=== PATIENT | female | born 1960 | race Caucasian/White ===

== ENCOUNTER 2020-08-03 14:54 | Outpatient (REF) | payer OTHER, SELFPAY ==
[2020-08-03 17:12] LABS: MANUAL DIFF FLAG NO
[2020-08-03 17:22] LABS: Basophils Percent Auto 0.6 % (0-2); Eosinophils Absolute Auto 0.2 X10*3/uL (0.0-0.4); Eosinophils Percent Auto 3.3 % (0-4); Hematocrit 40.5 % (37-47); Hemoglobin 12.9 g/dl (12.0-16.0); Imm Gran Abs Auto 0.02 X10*3/uL (0.00-0.03); Imm Gran Pct Auto 0.4 % (0.0-0.4); Lymphocytes Absolute Auto 1.5 X10*3/uL (1.2-4.9); Lymphocytes Percent Auto 27.8 % (20-40); Mean Corpuscular HGB Conc 31.9 g/dl (31.0-35.0); Mean Corpuscular Hemoglobin 25.5 pg (27.0-33.0); Mean Platelet Volume 10.3 fL (9.4-12.3); Monocytes Absolute Auto 0.5 X10*3/uL (0.1-1.2); Monocytes Percent Auto 8.7 % (2-11); Neutrophils Absolute Auto 3.2 X10*3/uL (2.0-8.3); Neutrophils Percent Auto 59.2 % (45-73); Platelet Count 204 X10*3/uL (160-400); Red Blood Count 5.06 X10*6/uL (4.20-5.50); Red Cell Distribution Width 14.7 % (11.0-16.0); White Blood Count 5.4 X10*3/uL (4.8-10.8)
[2020-08-03 17:36] LABS: Amphetamine Screen Urine Not Detected (Not Detect); Barbiturates, Urine Not Detected (Not Detect); Benzodiazepines Screen Urine Not Detected (Not Detect); Cannabinoid Screen Urine Not Detected (Not Detect); Cocaine Screen Urine Not Detected (Not Detect); Opiate Screen Urine POSITIVE (Not Detect); Phencyclidine Screen Urine Not Detected (Not Detect)
[2020-08-03 17:38] LABS: Anion Gap 13 (12-20); Blood Urea Nitrogen 19 mg/dL (9-16); Carbon Dioxide 30 mmol/L (22-29); Chloride 105 mmol/L (96-108); Estimated Glomerular Filt Rate > 60; Glucose Random 102 mg/dL (60-115); Potassium 4.5 mmol/l (3.3-5.1); Sodium 143 mmol/L (135-145)
[2020-08-05 04:32] LABS: SARS COV2 IgG Negative (Negative)
[2020-08-06 07:33] LABS: Oxycodone, Ur 1821
[2020-08-06 07:34] LABS: Codeine, Ur NEGATIVE; Hydrocodone, Ur NEGATIVE; Morphine, Ur NEGATIVE
[2020-08-06 07:35] LABS: Hydromorphone, Ur NEGATIVE; Norhydrocodone, Ur NEGATIVE; Oxymorphone, Ur 2114
[2020-08-06 07:41] LABS: Noroxycodone, Ur 2472
== END 2020-08-03 14:55 | disposition home or self-care (01) ==
LOC: HO.HMGCLDS 14:54
PROVIDERS: PCP Internal Medicine; Visit Provider Internal Medicine
DX: E66.9 Obesity, unspecified (principal); R52 Pain, unspecified; F11.20 Opioid dependence, uncomplicated; M48.00 Spinal stenosis, site unspecified; L30.9 Dermatitis, unspecified; M10.9 Gout, unspecified
CPT/HCPCS: 36415; 80048; 80307; 80365; 85025; 86769; G0480

== ENCOUNTER 2020-09-25 08:47 | Outpatient (REF) | payer OTHER, SELFPAY | END 2020-09-25 08:48 | disposition home or self-care (01) | LOC: HO.LAB 08:47 | PROVIDERS: PCP Internal Medicine; Visit Provider Internal Medicine | DX: Z20.828 Contact with and (suspected) exposure to other viral communicable diseases (principal) | CPT/HCPCS: U0003 ==

== ENCOUNTER 2021-01-19 06:17 | Outpatient (REF) | payer OTHER, SELFPAY ==
[2021-01-19 11:21] LABS: MANUAL DIFF FLAG NO
[2021-01-19 11:33] LABS: Basophils Percent Auto 0.7 % (0-2); Eosinophils Absolute Auto 0.2 X10*3/uL (0.0-0.4); Eosinophils Percent Auto 3.2 % (0-4); Hematocrit 41.4 % (37-47); Hemoglobin 12.8 g/dl (12.0-16.0); Imm Gran Abs Auto 0.05 X10*3/uL (0.00-0.03); Imm Gran Pct Auto 0.9 % (0.0-0.4); Lymphocytes Absolute Auto 1.2 X10*3/uL (1.2-4.9); Lymphocytes Percent Auto 21.2 % (20-40); Mean Corpuscular HGB Conc 30.9 g/dl (31.0-35.0); Mean Corpuscular Hemoglobin 24.8 pg (27.0-33.0); Mean Corpuscular Volume 80.1 fL (80-98); Mean Platelet Volume 10.5 fL (9.4-12.3); Monocytes Absolute Auto 0.4 X10*3/uL (0.1-1.2); Monocytes Percent Auto 7.5 % (2-11); Neutrophils Absolute Auto 3.9 X10*3/uL (2.0-8.3); Neutrophils Percent Auto 66.5 % (45-73); Platelet Count 200 X10*3/uL (160-400); Red Blood Count 5.17 X10*6/uL (4.20-5.50); Red Cell Distribution Width 15.1 % (11.0-16.0); White Blood Count 5.9 X10*3/uL (4.8-10.8)
[2021-01-19 18:02] LABS: Alanine Aminotransferase 15 U/L (0-31); Albumin Level 4.3 g/dL (3.5-5.0); Alkaline Phosphatase 100 U/L (39-117); Anion Gap 12 (12-20); Aspartate Amino Transferase 16 U/L (5-31); Bilirubin Total 0.3 mg/dL (0.0-1.0); Blood Urea Nitrogen 18 mg/dL (9-16); Calcium 9.3 mg/dL (8.4-10.2); Carbon Dioxide 32 mmol/L (22-29); Chloride 103 mmol/L (96-108); Estimated Glomerular Filt Rate > 60; Glucose Random 98 mg/dL (60-115); Potassium 4.4 mmol/L (3.3-5.1); Sodium 143 mmol/L (135-145); Total Protein 6.9 g/dL (6.5-8.0)
== END 2021-01-19 06:18 | disposition home or self-care (01) ==
LOC: HO.HMGCLDS 06:17
PROVIDERS: Visit Provider Nurse Practitioner Family
DX: R19.00 Intra-abdominal and pelvic swelling, mass and lump, unspecified site (principal)
CPT/HCPCS: 36415; 80053; 85025

== ENCOUNTER 2021-02-08 13:39 | Outpatient (REF) | payer OTHER, SELFPAY ==
--- NOTE | ~2021-02-08 | CT_ITS ---
EXAMINATION: CT ABDOMEN AND PELVIS WITH CONTRAST CLINICAL INFORMATION: 61-year-old female with intra-abdominal and pelvic swelling. COMPARISON: None TECHNIQUE: Multidetector volumetric images were obtained from the superior aspect of the liver through the pubic symphysis following administration 85 mL of Omnipaque 350 intravenous contrast. Sagittal and coronal reformatted images were obtained on the technologist's workstation. Oral contrast: No This CT examination was performed using dose optimization techniques as appropriate, variously including the following: *Automated exposure control *Adjustment of mA and/or kV according to patient size (this includes techniques or standardized protocols for targeted exams where dose is matched to indication/reason for exam; i.e. extremities or head) *Use of iterative reconstruction technique DLP: 755 mGy-cm FINDINGS: Visualized lung bases demonstrate mild dependent atelectasis. The liver is normal in size but demonstrates diffusely decreased attenuation. The gallbladder is normal in appearance. There is fatty atrophy of the pancreas. The spleen is normal in appearance. Small anterior splenule is noted. The adrenal glands are unremarkable. Symmetrically enhancing kidneys. There is no hydronephrosis bilaterally. The stomach is decompressed. Normal caliber loops of small and large bowel. Nonaneurysmal abdominal aorta. No retroperitoneal lymphadenopathy. The bladder is relatively decompressed and therefore not accurately evaluated. Uterus is unremarkable. No gross free pelvic fluid. No inguinal lymphadenopathy. Moderate diffuse degenerative changes of the spine. CT/CT abdomen pelvis w con IMPRESSION: -No CT evidence for acute abnormality within the abdomen or pelvis. -Diffusely decreased liver attenuation suggesting hepatic steatosis. Correlation with liver enzymes recommended.
[2021-02-08] MEDS: iohexoL 350 MG/ML 100 ML INFUS..BTL IV (15:59)
[2021-02-08] MEDS: Barium Sulfate Oral (Berry) 450 ML ORAL.SUSP 900 ML PO (16:04)
== END 2021-02-08 13:40 | disposition home or self-care (01) ==
LOC: HO.CT 13:39
PROVIDERS: PCP Internal Medicine; Visit Provider Nurse Practitioner Family
DX: R19.00 Intra-abdominal and pelvic swelling, mass and lump, unspecified site (principal)
CPT/HCPCS: 74177; Q9967

== ENCOUNTER 2021-04-28 16:26 | Outpatient (REF) | payer OTHER, SELFPAY ==
--- NOTE | ~2021-04-28 | MM_ITS ---
EXAMINATION: MM SCREENING DIGITAL BREAST TOMOSYNTHESIS, BILATERAL CLINICAL INFORMATION: Screening. Asymptomatic. The lifetime risk of breast cancer based on the Tyrer-Cuzick Model is 6%. COMPARISON: Mammography: 07/06/2018, 02/05/2016, 05/19/2014 TECHNIQUE: Digital breast tomosynthesis is performed in both the craniocaudal and mediolateral oblique views along with computer-aided detection (CAD). Synthesized 2D images are generated from the tomosynthesis. Additional bilateral MLO views and additional bilateral exaggerated CC views are obtained. FINDINGS: The breasts are almost entirely fatty (ACR BI-RADS breast composition Category a). There are no significant masses, abnormal calcifications, or other abnormalities. Background stromal markings are stable. No significant changes. MM/MM tomosynthesis screening BI IMPRESSION: No mammographic evidence of malignancy. ASSESSMENT: BI-RADS 1: Negative RECOMMENDATION: Routine annual mammography screening. This patient's information was entered into a reminder system with a target due date for their next mammogram.
== END 2021-04-28 16:27 | disposition home or self-care (01) ==
LOC: HO.MAMMO 16:26
PROVIDERS: Visit Provider Internal Medicine
DX: Z12.31 Encounter for screening mammogram for malignant neoplasm of breast (principal)
CPT/HCPCS: 77063; 77067

== ENCOUNTER 2021-05-03 15:02 | Outpatient (REF) | payer OTHER, SELFPAY ==
[2021-05-06 03:31] LABS: HPV mRNA E6/E7 rflx Not Detected (Not Detected)
== END 2021-05-03 15:03 | disposition home or self-care (01) ==
LOC: HO.LAB 15:02
PROVIDERS: PCP Internal Medicine; Visit Provider Advanced Practice Midwife
DX: Z01.419 Encounter for gynecological examination (general) (routine) without abnormal findings (principal); Z11.51 Encounter for screening for human papillomavirus (HPV)
CPT/HCPCS: 87624; 88142

== ENCOUNTER 2021-08-23 16:58 | Outpatient (REF) | payer OTHER, SELFPAY ==
[2021-08-24 12:57] LABS: Influenza A PCR NEGATIVE (Negative); Influenza B PCR NEGATIVE (Negative); Resp Syncy Virus RNA Qual PCR NEGATIVE (Negative); SARS COV2 PCR INHOUSE NEGATIVE (Negative)
== END 2021-08-23 16:59 | disposition home or self-care (01) ==
LOC: HO.LAB 16:58
PROVIDERS: Visit Provider Internal Medicine
DX: R43.9 Unspecified disturbances of smell and taste (principal); Z20.822 Contact with and (suspected) exposure to COVID-19
CPT/HCPCS: 0241U; 36415

== ENCOUNTER 2021-09-21 19:16 | Outpatient (REF) | payer OTHER, SELFPAY ==
[2021-09-21 20:12] LABS: Influenza A PCR NEGATIVE (Negative); Influenza B PCR NEGATIVE (Negative); Resp Syncy Virus RNA Qual PCR NEGATIVE (Negative); SARS COV2 PCR INHOUSE NEGATIVE (Negative)
== END 2021-09-21 19:17 | disposition home or self-care (01) ==
LOC: HO.LNP 19:16
PROVIDERS: Visit Provider Physician Assistant
DX: Z20.822 Contact with and (suspected) exposure to COVID-19 (principal)
CPT/HCPCS: 0241U

== ENCOUNTER 2021-10-31 12:06 | Outpatient (REF) | payer OTHER, SELFPAY ==
[2021-10-31 12:28] LABS: Binax Internal Control QC Valid; Binax Now Covid-19 Ag Negative (Negative)
== END 2021-10-31 12:07 | disposition home or self-care (01) ==
LOC: HO.HMGCLDS 12:06
PROVIDERS: Visit Provider Internal Medicine
DX: Z13.89 Encounter for screening for other disorder (principal)

== ENCOUNTER 2022-03-22 06:45 | Outpatient (REF) | payer OTHER, SELFPAY ==
[2022-03-22 11:41] LABS: MANUAL DIFF FLAG NO
[2022-03-22 11:47] LABS: Basophils Percent Auto 0.4 % (0-2); Eosinophils Absolute Auto 0.2 X10*3/uL (0.0-0.4); Eosinophils Percent Auto 2.9 % (0-4); Hemoglobin 12.3 g/dl (12.0-16.0); Imm Gran Abs Auto 0.02 X10*3/uL (0.00-0.03); Imm Gran Pct Auto 0.4 % (0.0-0.4); Lymphocytes Absolute Auto 1.2 X10*3/uL (1.2-4.9); Lymphocytes Percent Auto 22.5 % (20-40); Mean Corpuscular HGB Conc 32.4 g/dl (31.0-35.0); Mean Corpuscular Hemoglobin 25.6 pg (27.0-33.0); Mean Platelet Volume 10.7 fL (9.4-12.3); Monocytes Absolute Auto 0.4 X10*3/uL (0.1-1.2); Monocytes Percent Auto 7.7 % (2-11); Neutrophils Absolute Auto 3.4 x10*3/uL (2.0-8.3); Neutrophils Percent Auto 66.1 % (45-73); Platelet Count 187 X10*3/uL (160-400); Red Blood Count 4.81 X10*6/uL (4.20-5.50); Red Cell Distribution Width 15.4 % (11.0-16.0); White Blood Count 5.2 X10*3/uL (4.8-10.8)
[2022-03-22 12:11] LABS: Alanine Aminotransferase 12 U/L (0-31); Albumin Level 4.2 g/dL (3.5-5.0); Alkaline Phosphatase 81 U/L (39-117); Anion Gap 11 (12-20); Aspartate Amino Transferase 13 U/L (5-31); Bilirubin Total 0.3 mg/dL (0.0-1.0); Blood Urea Nitrogen 19 mg/dL (9-16); Calcium 8.9 mg/dL (8.4-10.2); Carbon Dioxide 27 mmol/L (22-29); Chloride 108 mmol/L (96-108); Cholesterol 178 mg/dL; Estimated Glomerular Filt Rate > 60; Glucose Fasting 103 mg/dL (60-99); HDL Cholesterol 50 mg/dL; LDL Cholesterol Calculated 116 mg/dl; Sodium 142 mmol/L (135-145); Total Protein 6.6 g/dL (6.5-8.0); Triglycerides 61 mg/dL
[2022-03-22 12:20] LABS: TSH reflex Free T4 2.46 uIU/mL (0.32-4.0)
[2022-03-22 12:26] LABS: Amphetamine Screen Urine Not Detected (Not Detect); Barbiturates, Urine Not Detected (Not Detect); Benzodiazepines Screen Urine Not Detected (Not Detect); Cannabinoid Screen Urine Not Detected (Not Detect); Cocaine Screen Urine Not Detected (Not Detect); Fentanyl, urine Not Detected (Not Detect); Opiate Screen Urine Not Detected (Not Detect); Phencyclidine Screen Urine Not Detected (Not Detect)
[2022-03-24 01:11] LABS: Rubella IgG Antibody 1.51 Index
[2022-03-24 05:46] LABS: Rubeola IgG (Measles) >300.00 AU/mL
[2022-03-26 07:20] LABS: Noroxycodone, Ur 1215
[2022-03-26 07:21] LABS: Oxycodone, Ur 1261; Oxymorphone, Ur 1598
[2022-03-26 07:22] LABS: Codeine, Ur NEGATIVE; Hydrocodone, Ur NEGATIVE; Hydromorphone, Ur NEGATIVE; Morphine, Ur NEGATIVE; Norhydrocodone, Ur NEGATIVE
== END 2022-03-22 06:46 | disposition home or self-care (01) ==
LOC: HO.HMGCLDS 06:45
PROVIDERS: PCP Internal Medicine; Visit Provider Internal Medicine
DX: Z00.01 Encounter for general adult medical examination with abnormal findings (principal); E66.01 Morbid (severe) obesity due to excess calories; M48.00 Spinal stenosis, site unspecified; F11.20 Opioid dependence, uncomplicated; R52 Pain, unspecified; Z28.39 Other underimmunization status; Z91.09 Other allergy status, other than to drugs and biological substances
CPT/HCPCS: 80053; 80061; 80307; 80364; 80365; 84443; 85025; 86735; 86762; 86765; 86774; 86787

== ENCOUNTER 2022-11-22 15:31 | Outpatient (REF) | payer OTHER, SELFPAY ==
--- NOTE | ~2022-11-22 | MM_ITS ---
EXAMINATION: MM SCREENING DIGITAL BREAST TOMOSYNTHESIS, BILATERAL CLINICAL INFORMATION: Screening. Asymptomatic. The lifetime risk of breast cancer based on the Tyrer-Cuzick Model is 5.9%. COMPARISON: Mammography: April 28, 2021 and studies dating back to May 19, 2014 TECHNIQUE: Digital breast tomosynthesis is performed in both the craniocaudal and mediolateral oblique views along with computer-aided detection (CAD). Synthesized 2D images are generated from the tomosynthesis. FINDINGS: The breasts are almost entirely fatty (ACR BI-RADS breast composition Category a). There are no significant masses, abnormal calcifications, or other abnormalities. MM/MM tomosynthesis screening BI IMPRESSION: No significant changes from prior exam. ASSESSMENT: BI-RADS 1: Negative RECOMMENDATION: Routine annual mammography screening. This patient's information was entered into a reminder system with a target due date for their next mammogram.
== END 2022-11-22 15:32 | disposition home or self-care (01) ==
LOC: HO.MAMMO 15:31
PROVIDERS: PCP Internal Medicine; Visit Provider Internal Medicine
DX: Z12.31 Encounter for screening mammogram for malignant neoplasm of breast (principal)
CPT/HCPCS: 77063; 77067

== ENCOUNTER 2023-03-21 06:02 | Outpatient (REF) | payer OTHER, SELFPAY ==
[2023-03-21 11:47] LABS: Alanine Aminotransferase 13 U/L (0-31); Albumin Level 4.2 g/dL (3.5-5.0); Alkaline Phosphatase 92 U/L (39-117); Anion Gap 12 (12-20); Aspartate Amino Transferase 14 U/L (5-31); Bilirubin Total 0.5 mg/dL (0.0-1.0); Blood Urea Nitrogen 17 mg/dL (9-16); Calcium 9.2 mg/dL (8.4-10.2); Carbon Dioxide 29 mmol/L (22-29); Chloride 108 mmol/L (96-108); Cholesterol 192 mg/dL; Estimated Glomerular Filt Rate > 60; Glucose Fasting 103 mg/dL (60-99); HDL Cholesterol 53 mg/dL; LDL Cholesterol Calculated 125 mg/dl; Sodium 145 mmol/L (135-145); Total Protein 6.6 g/dL (6.5-8.0); Triglycerides 70 mg/dL
[2023-03-21 12:07] LABS: TSH reflex Free T4 4.41 uIU/mL (0.32-4.0)
[2023-03-21 12:45] LABS: Free T4 (Free Thyroxine) 1.19 ng/dL (0.71-1.85)
== END 2023-03-21 06:03 | disposition home or self-care (01) ==
LOC: HO.HMGCLDS 06:02
PROVIDERS: PCP Internal Medicine; Visit Provider Internal Medicine
DX: E66.01 Morbid (severe) obesity due to excess calories (principal); K76.0 Fatty (change of) liver, not elsewhere classified; M10.9 Gout, unspecified; M48.00 Spinal stenosis, site unspecified; Z91.09 Other allergy status, other than to drugs and biological substances
CPT/HCPCS: 36415; 80053; 80061; 84439; 84443

== ENCOUNTER 2023-04-04 06:05 | Outpatient (REF) | payer OTHER, SELFPAY ==
[2023-04-04 12:20] LABS: TSH reflex Free T4 2.96 uIU/mL (0.32-4.0)
== END 2023-04-04 06:06 | disposition home or self-care (01) ==
LOC: HO.HMGCLDS 06:05
PROVIDERS: PCP Internal Medicine; Visit Provider Internal Medicine
DX: R94.6 Abnormal results of thyroid function studies (principal)
CPT/HCPCS: 36415; 84443

== ENCOUNTER 2023-04-27 07:28 | Outpatient (AMB) | payer OTHER, SELFPAY ==
--- NOTE | 2023-04-27 07:33 | A.OFFPC_ITS ---
Intake Visit Reasons: telehealth/meds Allergies Sulfa (Sulfonamide Antibiotics) [SULFA (SULFONAMIDE ANTIBIOTICS)] Allergy (In termediate, Verified 04/27/23 07:34) HIVES, unknown-childhood amoxicillin [Augmentin] Allergy (Unknown, Verified 04/27/23 07:34) rash, itching clavulanic acid [Augmentin] Allergy (Unknown, Verified 04/27/23 07:34) rash, itching gabapentin Adverse Reaction (Unknown, Verified 04/27/23 07:34) N/V Fentanyl Patch Adverse Reaction (Unknown, Uncoded 04/27/23 07:34) skin irritation Medication List - Last Reconciled 04/27/23 by Carlyn Reddy MD albuterol sulfate 90 mcg/actuation 1 inh inhalation QID PRN carisoprodol (Soma) 350 mg PO BEDTIME PRN 90 days furosemide 20 mg PO QAM PRN 30 days lidocaine 5% 1 patch topical DAILY 30 days montelukast 10 mg PO DAILY 30 days nystatin (Nystop) 1 appl topical BID 30 days oxycodone 10 mg PO TID PRN 30 days triamcinolone acetonide 0.1% 1 appl topical BID 90 days Tobacco use date assessed: 04/27/23 Dental Screening Dental Screen Date: 04/27/23 Did you have a dental visit in the last 12 months?: Yes Did you have a dental problem in the last 6 months where you did not have access to dental care?: Yes Was dental information given to patient?: Patient has dentist HPI telehealth/meds HPI Details Patient is 63-year-old female this is a telemedicine video conference to fill her medication Patient is on oxycodone and Soma for lumbar spine stenosis She is complying with the treatment plan no signs of abuse Contract up-to-date She also have a chronic ear discomfort she was waiting for E[place] which was canceled last minute She is complaining about that she has a new appointment in July. Patient is evaluated every month before we send her narcotic pain medication. [facility] Medical History Eczema Gout Narcotic dependence Obesity Pain management Severe acute respiratory syndrome coronavirus 2 (SARS-CoV-2) detected Spinal stenosis Surgical History History of section History of colonoscopy History of surgery Family History Father Cancer COPD (chronic obstructive pulmonary disease) Mother Arthritis Maternal Grandfather Diabetes mellitus Maternal Grandmother Emphysema lung Paternal Grandfather No problems noted. Paternal Grandmother No problems noted. Brother No problems noted. Brother No problems noted. Brother No problems noted. Sister No problems noted. Sister No problems noted. Son No problems noted. Daughter No problems noted. 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 How often do you have a drink containing alcohol?: Never Total Score: 0 JESSICA-7 AMB Questionnaire JESSICA-7 Date JESSICA - 7 assessed: 06/20/22 Source: Developed by Drs. Jem Quintero, Candi Felix, Jose Guadalupe Espinosa and colleagues, with an educational conchita from [employer]. Review of Systems Const Denies chills and Denies fever(s) ENT Denies epistaxis and Denies nasal discharge Card Denies chest pain Resp Denies chest congestion, Denies cough and Denies hemoptysis GI Denies diarrhea and Denies nausea Skin/Breast Denies rash Neuro Reports no additional complaints Psych Reports no additional complaints Endo Reports no additional complaints Physical exam (Primary Care) Tobacco/Smoking Status: Tobacco use Status Tobacco use date assessed 04/27/23 04/27/23 07:36 Patient Tobacco Use Status Former Tobacco user 04/27/23 07:36 e-Cigarette/Vaping Use Never Used 04/27/23 07:36 Thrive Assessment: Date of Thrive Assessment Date Thrive assessed 03/21/22 04/27/23 07:36 Telehealth Telehealth Location of provider rendering services: practice address Location of patient: address on file Patient Identification confirmed using: Name, : Yes Telehealth method: video Patient verbally consented to treatment: Yes Patient verbally consented to billing insurance company: Yes Patient informed of any privacy concerns related to visit: Yes Minutes spent on Phone/Video with Pt.: 13 Assessment and Plan Assessment & Plan (1) Spinal stenosis: Code(s): M48.00 - Spinal stenosis, site unspecified (2) Narcotic dependence: Code(s): F11.20 - Opioid dependence, uncomplicated (3) Pain management: Code(s): R52 - Pain, unspecified Plan Patient is 63-year-old female this is a telemedicine video conference to fill her medication Patient is on oxycodone and Soma for lumbar spine stenosis She is complying with the treatment plan no signs of abuse Contract up-to-date She also have a chronic ear discomfort she was waiting for ENT appointment [place] which was canceled last minute She is complaining about that she has a new appointment in July. Patient is evaluated every month before we send her narcotic pain medication. Medications: Refilled montelukast 10 mg PO DAILY 30 days 30 tabs 0RF oxycodone 10 mg PO TID 30 days PRN 90 tabs 0RF pain F11.20 - Opioid dependence, uncomplicated, M17.10 - Unilateral primary osteoarthritis, unspecified knee, M48.00 - Spinal stenosis, site unspecified, R52 - Pain, unspecified carisoprodol (Soma) 350 mg PO BEDTIME 90 days PRN 14 tabs 0RF muscle pain M48.00 - Spinal stenosis, site unspecified Coding Level of Care Code Tele Est Pt Level 3 (41094) Diagnoses Spinal stenosis M48.00 Narcotic dependence F11.20 Pain management R52
== END 2023-04-27 08:43 | disposition home or self-care (01) ==
PROVIDERS: PCP Internal Medicine; Visit Provider Internal Medicine
DX: M48.00 Spinal stenosis, site unspecified (principal); F11.20 Opioid dependence, uncomplicated; R52 Pain, unspecified
CPT/HCPCS: 99213

== ENCOUNTER 2023-05-08 15:29 | Outpatient (AMB) | payer OTHER, SELFPAY ==
--- NOTE | 2023-05-08 15:44 | MHC.OFFWIV ---
Intake Vital Signs 05/08/23 15:49 Height 5 ft 2 in BP 144/78 H Blood Pressure Location Lt brachial Position Sitting Pulse 96 Pulse Source Pulse Oximeter Temp 95.7 F L Temp Source Temporal Artery Scan Pulse Oximetry (%) 100 Oxygen Delivery Method Room Air Intake Visit Reasons: EP, Congestion Intake Note: Pt is here c/o possible sinus infection and bad cough. Patient Tobacco Use Status: Former Tobacco user Allergies Sulfa (Sulfonamide Antibiotics) [SULFA (SULFONAMIDE ANTIBIOTICS)] Allergy (Intermediate, Verified 04/27/23 07:34) HIVES, unknown-childhood amoxicillin [Augmentin] Allergy (Unknown, Verified 04/27/23 07:34) rash, itching clavulanic acid [Augmentin] Allergy (Unknown, Verified 04/27/23 07:34) rash, itching gabapentin Adverse Reaction (Unknown, Verified 04/27/23 07:34) N/V Fentanyl Patch Adverse Reaction (Unknown, Uncoded 04/27/23 07:34) skin irritation HPI EP, Congestion HPI Details 63-year-old female presents to the office for a sick visit. Reporting symptoms of sinus congestion, sore throat and difficulty swallowing. Low-grade fever. No family member is sick. No recent travel. Patient reports symptoms of malaise and fatigue. [facility] Medical History Eczema Gout Narcotic dependence Obesity Pain management Severe acute respiratory syndrome coronavirus 2 (SARS-CoV-2) detected Spinal stenosis Surgical History History of section History of colonoscopy History of surgery Family History Father Cancer COPD (chronic obstructive pulmonary disease) Mother Arthritis Maternal Grandfather Diabetes mellitus Maternal Grandmother Emphysema lung Paternal Grandfather No problems noted. Paternal Grandmother No problems noted. Brother No problems noted. Brother No problems noted. Brother No problems noted. Sister No problems noted. Sister No problems noted. Son No problems noted. Daughter No problems noted. 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 Right ear: Ear canal congested and tympanic membrane is red. Head: Yes normal to inspection Eyes General: appearance normal, both eyes and all related structures Neck Neck: Yes normal visual inspection Chest Chest palpation & inspection: normal palpation of entire chest wall Resp Effort & Inspection: normal respiratory effort Neuro General: patient oriented x3 Assessment & Plan Assessment & Plan (1) Upper respiratory tract infection: Code(s): J06.9 - Acute upper respiratory infection, unspecified Plan: Antibiotics ordered. Increase fluid intake. Tylenol for aches and pains. If symptoms worsen, follow-up here for a recheck. Coding Level of Care Code Est Pt Level 3 (86290) Diagnoses Upper respiratory tract infection J06.9
[2023-05-08 15:49] VITALS: BP 144/78; PULSE 96; TEMP 35.4; O2SAT 100
== END 2023-05-08 16:58 | disposition home or self-care (01) ==
PROVIDERS: PCP Internal Medicine; Visit Provider Internal Medicine
DX: J06.9 Acute upper respiratory infection, unspecified (principal)
CPT/HCPCS: 99213

== ENCOUNTER 2023-05-25 07:28 | Outpatient (AMB) | payer OTHER, SELFPAY ==
--- NOTE | 2023-05-25 07:28 | A.OFFPC_ITS ---
Intake Visit Reasons: medication review Allergies Sulfa (Sulfonamide Antibiotics) [SULFA (SULFONAMIDE ANTIBIOTICS)] Allergy ( Intermediate, Verified 04/27/23 07:34) HIVES, unknown-childhood amoxicillin [Augmentin] Allergy (Unknown, Verified 04/27/23 07:34) rash, itching clavulanic acid [Augmentin] Allergy (Unknown, Verified 04/27/23 07:34) rash, itching gabapentin Adverse Reaction (Unknown, Verified 04/27/23 07:34) N/V Fentanyl Patch Adverse Reaction (Unknown, Uncoded 04/27/23 07:34) skin irritation Medication List - Last Reconciled 05/25/23 by Carlyn Reddy MD albuterol sulfate 90 mcg/actuation 1 inh inhalation QID PRN carisoprodol (Soma) 350 mg PO BEDTIME PRN 30 days furosemide 20 mg PO QAM PRN 30 days lidocaine 5% 1 patch topical DAILY 30 days montelukast 10 mg PO DAILY 30 days nystatin (Nystop) 1 appl topical BID 30 days oxycodone 10 mg PO TID PRN 30 days triamcinolone acetonide 0.1% 1 appl topical BID 90 days Tobacco use date assessed: 05/25/23 Dental Screening Dental Screen Date: 05/25/23 Did you have a dental visit in the last 12 months?: Yes Did you have a dental problem in the last 6 months where you did not have access to dental care?: Yes Was dental information given to patient?: Patient has dentist HPI medication review HPI Details Patient is 63-year-old female this is a telemedicine video conference to fill her medication See that patient is due for drug contract renewal as well as urine drug test I have requested her to come to the office to at her next visit Patient is on oxycodone and Soma for lumbar spine stenosis She is complying with the treatment plan no signs of abuse Patient is evaluated every month before we send her narcotic pain medication. [facility] Medical History Eczema Gout Narcotic dependence Obesity Pain management Severe acute respiratory syndrome coronavirus 2 (SARS-CoV-2) detected Spinal stenosis Surgical History History of section History of colonoscopy History of surgery Family History Father Cancer COPD (chronic obstructive pulmonary disease) Mother Arthritis Maternal Grandfather Diabetes mellitus Maternal Grandmother Emphysema lung Paternal Grandfather No problems noted. Paternal Grandmother No problems noted. Brother No problems noted. Brother No problems noted. Brother No problems noted. Sister No problems noted. Sister No problems noted. Son No problems noted. Daughter No problems noted. 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 Jem Quintero, Candi Felix, Jose Guadalupe Espinosa and colleagues, with an educational conchita from [employer]. Review of Systems Const Denies chills and Denies fever(s) ENT Denies epistaxis and Denies nasal discharge Card Denies chest pain Resp Denies chest congestion, Denies cough and Denies hemoptysis GI Denies diarrhea and Denies nausea Skin/Breast Denies rash Neuro Reports no additional complaints Psych Reports no additional complaints Endo Reports no additional complaints Physical exam (Primary Care) Tobacco/Smoking Status: Tobacco use Status Tobacco use date assessed 05/25/23 05/25/23 07:29 Patient Tobacco Use Status Former Tobacco user 05/25/23 07:29 e-Cigarette/Vaping Use Never Used 05/25/23 07:29 Thrive Assessment: Date of Thrive Assessment Date Thrive assessed 03/21/22 05/25/23 07:29 Assessment and Plan Assessment & Plan (1) Spinal stenosis: Code(s): M48.00 - Spinal stenosis, site unspecified (2) Narcotic dependence: Code(s): F11.20 - Opioid dependence, uncomplicated (3) Pain management: Code(s): R52 - Pain, unspecified Plan Patient is 63-year-old female this is a telemedicine video conference to fill her medication See that patient is due for drug contract renewal as well as urine drug test I have requested her to come to the office to at her next visit Patient is on oxycodone and Soma for lumbar spine stenosis She is complying with the treatment plan no signs of abuse Patient is evaluated every month before we send her narcotic pain medication. Medications: Changed From carisoprodol (Soma) 350 mg PO BEDTIME PRN 14 tabs 0RF muscle pain 90 days M48.00 - Spinal stenosis, site unspecified To carisoprodol (Soma) 350 mg PO BEDTIME PRN 30 tabs 0RF muscle pain 30 days M48.00 - Spinal stenosis, site unspecified Refilled oxycodone 10 mg PO TID PRN 90 tabs 0RF pain 30 days F11.20 - Opioid dependence, uncomplicated, M17.10 - Unilateral primary osteoarthritis, unspecified knee, M48.00 - Spinal stenosis, site unspecified, R52 - Pain, unspecified Coding Level of Care Code Tele Est Pt Level 3 (80395) Diagnoses Spinal stenosis M48.00 Narcotic dependence F11.20 Pain management R52
== END 2023-05-25 09:03 | disposition home or self-care (01) ==
LOC: HO.HMGC 07:28
PROVIDERS: PCP Internal Medicine; Visit Provider Internal Medicine
DX: M48.00 Spinal stenosis, site unspecified (principal); F11.20 Opioid dependence, uncomplicated; R52 Pain, unspecified
CPT/HCPCS: 99213

== ENCOUNTER 2023-06-22 15:34 | Outpatient (AMB) | payer OTHER, SELFPAY ==
[2023-06-22 15:35] VITALS: BP 142/82; PULSE 91; O2SAT 98; BMI 44.0
--- NOTE | 2023-06-22 15:35 | A.OFFPC_ITS ---
Vital Signs 06/22/23 15:35 Height 5 ft 2 in Weight 240 lb 6 oz BMI 44.0 BP 142/82 H Blood Pressure Location Rt brachial Position Sitting Pulse 91 Pulse Source Pulse Oximeter Pulse Oximetry (%) 98 Oxygen Delivery Method Room Air Intake Visit Reasons: Follow Up~ Allergies Sulfa (Sulfonamide Antibiotics) [SULFA (SULFONAMIDE ANTIBIOTICS)] Allergy (Intermediate, Verified 06/22/23 15:51) HIVES, unknown-childhood amoxicillin [Augmentin] Allergy (Unknown, Verified 06/22/23 15:51) rash, itching clavulanic acid [Augmentin] Allergy (Unknown, Verified 06/22/23 15:51) rash, itching gabapentin Adverse Reaction (Unknown, Verified 06/22/23 15:51) N/V Fentanyl Patch Adverse Reaction (Unknown, Uncoded 04/27/23 07:34) skin irritation Medication List - Last Reconciled 06/22/23 by Carlyn Reddy MD albuterol sulfate 90 mcg/actuation 1 inh inhalation QID PRN carisoprodol (Soma) 350 mg PO BEDTIME PRN 30 days furosemide 20 mg PO QAM PRN 30 days lidocaine 5% 1 patch topical DAILY 30 days montelukast 10 mg PO DAILY 30 days nystatin (Nystop) 1 appl topical BID 30 days oxycodone 10 mg PO TID PRN 30 days triamcinolone acetonide 0.1% 1 appl topical BID 90 days Tobacco use date assessed: 06/22/23 Dental Screening Dental Screen Date: 06/22/23 Did you have a dental visit in the last 12 months?: Yes Did you have a dental problem in the last 6 months where you did not have access to dental care?: No Was dental information given to patient?: Patient has dentist HPI Follow Up~ HPI Details Patient 63-year-old female came in today for her regular follow-up appointment Patient has chronic recurrent ear infections she has appointment with ENT but it is not until mid of August She is complaining of fullness in her left ear and it is throbbing off and on. Her blood pressure is elevated as well it was high in April as well Patient was instructed to start monitoring her blood pressure at home and keep a log and bring it along next month with her blood pressure monitor. She had labs done in March reviewed again Gout is stable Patient does have allergies and she is taking her allergy medication regularly she is on long-acting anti histamine as well as montelukast Lumbar spinal stenosis managed with the help of narcotic pain medication and muscle relaxer Soma Patient is complying with the treatment plan no signs of abuse. I am treating her ear discomfort with azithromycin and short course of prednisone. She also take furosemide off and on for swelling in her ankles and hands. Follow-up 1 month [facility] Medical History Severe acute respiratory syndrome coronavirus 2 (SARS-CoV-2) detected Pain management Narcotic dependence Obesity Eczema Gout Spinal stenosis Surgical History History of surgery History of colonoscopy History of section Family History Father Cancer COPD (chronic obstructive pulmonary disease) Mother Arthritis Maternal Grandfather Diabetes mellitus Maternal Grandmother Emphysema lung Paternal Grandfather No problems noted. Paternal Grandmother No problems noted. Brother No problems noted. Brother No problems noted. Brother No problems noted. Sister No problems noted. Sister No problems noted. Son No problems noted. Daughter No problems noted. 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 1. Little interest or pleasure in doing things: not at all 2. Feeling down, depressed, or hopeless: not at all 3. Trouble falling or staying asleep, or sleeping too much: not at all 4. Feeling tired or having little energy: not at all 5. Poor appetite or overeating: not at all 6. Feeling bad about yourself - or that you are a failure or have let yourself or your family down: not at all 7. Trouble concentrating on things, such as reading the newspaper or watching television: not at all 8. Moving or speaking so slowly that other people could have noticed. Or the opposite - being so fidgety or restless that you have been moving around a lot more than usual: not at all 9. Thoughts that you would be better off or of hurting yourself in some way: not at all Total score: 0 Depression Screening Interpretation: Negative [id number] - PHQ-9 Billing: Yes Source: Developed by Drs. Jem Quintero, Candi Felix, Jose Guadalupe Espinosa and colleagues, with an educational conchita from [employer]. Thrive Questionnaire Date Thrive assessed: 03/21/22 AUDIT C Alcohol Use Questionnaire (AUDIT-C) 1. How often do you have a drink containing alcohol?: Never 3. How often do you have six or more drinks on one occasion?: Never Total Score: 0 Score Reviewed/Action Taken: Yes JESSICA-7 AMB Questionnaire JESSICA-7 Date JESSICA - 7 assessed: 06/20/22 Source: Developed by Drs. Jem Quintero, Candi Felix, Jose Guadalupe Espinosa and colleagues, with an educational conchita from [employer]. Review of Systems Const Denies chills and Denies fever(s) ENT Denies epistaxis and Denies nasal discharge Card Denies chest pain Resp Denies chest congestion, Denies cough and Denies hemoptysis GI Denies diarrhea and Denies nausea Skin/Breast Denies rash Neuro Reports no additional complaints Psych Reports no additional complaints Endo Reports no additional complaints Physical exam (Primary Care) Vital Signs: Last Vital Signs Pulse 91 06/22/23 15:35 BP 142/82 H 06/22/23 15:35 Pulse Ox 98 06/22/23 15:35 Oxygen Delivery Method Room Air 06/22/23 15:35 BMI result Body Mass Index 44.0 Tobacco/Smoking Status: Tobacco use Status Tobacco use date assessed 06/22/23 06/22/23 15:36 Patient Tobacco Use Status Former Tobacco user 06/22/23 15:36 e-Cigarette/Vaping Use Never Used 06/22/23 15:36 Depression Screening Interpretation: Negative Thrive Assessment: Date of Thrive Assessment Date Thrive assessed 03/21/22 06/22/23 15:36 Const General: cooperative, comfortable and no acute distress Orientation/consciousness: patient oriented x3 HENMT Other: Extensive scarring of tympanic membrane bilateral, slight erythema left tympanic membrane which is difficult to appreciate due to scarring Head: Yes normocephalic Eyes General: appearance normal, both eyes and all related structures Neck Neck: Yes supple Resp Effort & Inspection: normal respiratory effort, no cough and no stridor Cardio Rhythm: regular rhythm Heart sounds: S1 normal heart sound present and S2 normal heart sound present Skin General skin exam: turgor normal Neuro General: patient oriented x3, tone normal and moves all extremities Extrem Right lower extremity: no edema Left lower extremity: no edema Assessment and Plan Assessment & Plan (1) Spinal stenosis: Code(s): M48.00 - Spinal stenosis, site unspecified Qualifiers: Spinal region: lumbar Neurogenic claudication status: with neurogenic claudication Qualified Code(s): M48.062 - Spinal stenosis, lumbar region with neurogenic claudication (2) Narcotic dependence: Code(s): F11.20 - Opioid dependence, uncomplicated (3) Pain management: Code(s): R52 - Pain, unspecified (4) Eustachian tube disorder: Code(s): H69.90 - Unspecified Eustachian tube disorder, unspecified ear Qualifiers: Laterality: left Qualified Code(s): H69.92 - Unspecified Eustachian tube disorder, left ear (5) Morbid obesity due to excess calories: Code(s): E66.01 - Morbid (severe) obesity due to excess calories (6) Environmental allergies: Code(s): Z91.09 - Other allergy status, other than to drugs and biological substances (7) Gout: Code(s): M10.9 - Gout, unspecified Qualifiers: Gout site: foot Gout etiology: idiopathic Chronicity: chronic (8) Eczema: Code(s): L30.9 - Dermatitis, unspecified Qualifiers: Eczema type: flexural Qualified Code(s): L20.82 - Flexural eczema Plan Patient 63-year-old female came in today for her regular follow-up appointment Patient has chronic recurrent ear infections she has appointment with ENT but it is not until mid of August She is complaining of fullness in her left ear and it is throbbing off and on. Her blood pressure is elevated as well it was high in April as well Patient was instructed to start monitoring her blood pressure at home and keep a log and bring it along next month with her blood pressure monitor. She had labs done in March reviewed again Gout is stable Patient does have allergies and she is taking her allergy medication regularly she is on long-acting anti histamine as well as montelukast Lumbar spinal stenosis managed with the help of narcotic pain medication and muscle relaxer Soma Patient is complying with the treatment plan no signs of abuse. I am treating her ear discomfort with azithromycin and short course of prednisone. She also take furosemide off and on for swelling in her ankles and hands. Follow-up 1 month Medications: New prednisone 10 mg PO DAILY 5 days 5 tabs 0RF azithromycin Take 2 tablets today then 1 daily 250 mg PO ONCE 5 days 6 tabs 0RF J06.9 - Acute upper respiratory infection, unspecified Refilled oxycodone ok to fill early this month as patient is going on vacation 10 mg PO TID 30 days PRN 90 tabs 0RF pain F11.20 - Opioid dependence, uncomplicated, M17.10 - Unilateral primary osteoarthritis, unspecified knee, M48.00 - Spinal stenosis, site unspecified, R52 - Pain, unspecified Coding Level of Care Code Est Pt Level 4 (30188) Diagnoses Spinal stenosis of lumbar region with neurogenic claudication M48.062 Spinal region: lumbar Neurogenic claudication status: with neurogenic claudication Narcotic dependence F11.20 Pain management R52 Disorder of left eustachian tube H69.92 Laterality: left Morbid obesity due to excess calories E66.01 Environmental allergies Z91.09 Gout M10.9 Gout site: foot Gout etiology: idiopathic Chronicity: chronic Flexural eczema L20.82 Eczema type: flexural
== END 2023-06-22 16:30 | disposition home or self-care (01) ==
PROVIDERS: PCP Internal Medicine; Visit Provider Internal Medicine
DX: M48.062 Spinal stenosis, lumbar region with neurogenic claudication (principal); F11.20 Opioid dependence, uncomplicated; E66.01 Morbid (severe) obesity due to excess calories; Z68.41 Body mass index [BMI] 40.0-44.9, adult; Z91.09 Other allergy status, other than to drugs and biological substances; R52 Pain, unspecified; H69.92 Unspecified Eustachian tube disorder, left ear; M10.9 Gout, unspecified; L20.82 Flexural eczema
CPT/HCPCS: 99214

== ENCOUNTER 2023-07-24 08:02 | Outpatient (AMB) | payer OTHER, SELFPAY ==
--- NOTE | 2023-07-24 08:02 | MHC.PC.OV ---
Vital Signs 07/24/23 09:56 BP 120/80 Pulse 90 Pulse Oximetry (%) 98 Intake Visit Reasons: Follow up ~ [employer] Required: No Accompanied by: Self / Same As Patient Allergies Sulfa (Sulfonamide Antibiotics) [SULFA (SULFONAMIDE ANTIBIOTICS)] Allergy (Intermediate, Verified 07/24/23 08:02) HIVES, unknown-childhood amoxicillin [Augmentin] Allergy (Unknown, Verified 07/24/23 08:02) rash, itching clavulanic acid [Augmentin] Allergy (Unknown, Verified 07/24/23 08:02) rash, itching gabapentin Adverse Reaction (Unknown, Verified 07/24/23 08:02) N/V Fentanyl Patch Adverse Reaction (Unknown, Uncoded 04/27/23 07:34) skin irritation Medication List - Last Reconciled 07/24/23 by Carlyn Reddy MD albuterol sulfate 90 mcg/actuation 1 inh inhalation QID PRN carisoprodol (Soma) 350 mg PO BEDTIME PRN 30 days furosemide 20 mg PO QAM PRN 30 days lidocaine 5% 1 patch topical DAILY 30 days montelukast 10 mg PO DAILY 30 days nystatin (Nystop) 1 appl topical BID 30 days oxycodone 10 mg PO TID PRN 30 days triamcinolone acetonide 0.1% 1 appl topical BID 90 days Tobacco use date assessed: 06/22/23 Dental Screening Dental Screen Date: 07/24/23 Did you have a dental visit in the last 12 months?: Yes Did you have a dental problem in the last 6 months where you did not have access to dental care?: No Was dental information given to patient?: Patient has dentist HPI Follow up ~ HPI Details Patient is 63-year-old female this is a telemedicine video conference to fill her medication Patient is on oxycodone and Soma for lumbar spine stenosis She is complying with the treatment plan no signs of abuse Patient is evaluated every month before we send her narcotic pain medication. Last visit her blood pressure was elevated in 140s systolic she is not monitoring it at home And at home it is running 120s systolic she tells me. Patient will bring in her blood pressure monitor for calibration. [facility] Medical History Severe acute respiratory syndrome coronavirus 2 (SARS-CoV-2) detected Pain management Narcotic dependence Obesity Eczema Gout Spinal stenosis Surgical History History of surgery History of colonoscopy History of section Family History Father Cancer COPD (chronic obstructive pulmonary disease) Mother Arthritis Maternal Grandfather Diabetes mellitus Maternal Grandmother Emphysema lung Paternal Grandfather No problems noted. Paternal Grandmother No problems noted. Brother No problems noted. Brother No problems noted. Brother No problems noted. Sister No problems noted. Sister No problems noted. Son No problems noted. Daughter No problems noted. 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 Jem Quintero, Candi Felix, Jose Guadalupe Espinosa and colleagues, with an educational conchita from [employer]. Review of Systems Const Denies chills and Denies fever(s) ENT Denies epistaxis and Denies nasal discharge Card Denies chest pain Resp Denies chest congestion, Denies cough and Denies hemoptysis GI Denies diarrhea and Denies nausea Skin/Breast Denies rash Neuro Reports no additional complaints Psych Reports no additional complaints Endo Reports no additional complaints Physical exam (Primary Care) Tobacco/Smoking Status: Tobacco use Status Tobacco use date assessed 06/22/23 07/24/23 08:03 Patient Tobacco Use Status Former Tobacco user 07/24/23 08:03 e-Cigarette/Vaping Use Never Used 07/24/23 08:03 Thrive Assessment: Date of Thrive Assessment Date Thrive assessed 03/21/22 07/24/23 08:03 Telehealth Telehealth Location of provider rendering services: practice address Location of patient: address on file Patient Identification confirmed using: Name, : Yes Telehealth method: video Patient verbally consented to treatment: Yes Patient verbally consented to billing insurance company: Yes Patient informed of any privacy concerns related to visit: Yes Minutes spent on Phone/Video with Pt.: 13 Assessment and Plan Assessment & Plan (1) Spinal stenosis: Code(s): M48.00 - Spinal stenosis, site unspecified Qualifiers: Spinal region: lumbar Neurogenic claudication status: with neurogenic claudication Qualified Code(s): M48.062 - Spinal stenosis, lumbar region with neurogenic claudication (2) Narcotic dependence: Code(s): F11.20 - Opioid dependence, uncomplicated (3) Pain management: Code(s): R52 - Pain, unspecified Plan Patient is 63-year-old female this is a telemedicine video conference to fill her medication Patient is on oxycodone and Soma for lumbar spine stenosis She is complying with the treatment plan no signs of abuse Patient is evaluated every month before we send her narcotic pain medication. Last visit her blood pressure was elevated in 140s systolic she is not monitoring it at home And at home it is running 120s systolic she tells me. Vitals placed today were given to me by the patient Patient will bring in her blood pressure monitor for calibration. Medications: Refilled oxycodone ok to fill early this month as patient is going on vacation 10 mg PO TID PRN 90 tabs 0RF pain 30 days F11.20 - Opioid dependence, uncomplicated, M17.10 - Unilateral primary osteoarthritis, unspecified knee, M48.00 - Spinal stenosis, site unspecified, R52 - Pain, unspecified carisoprodol (Soma) 350 mg PO BEDTIME PRN 30 tabs 0RF muscle pain 30 days M48.00 - Spinal stenosis, site unspecified Coding Level of Care Code Tele Est Pt Level 3 (38545) Diagnoses Spinal stenosis of lumbar region with neurogenic claudication M48.062 Spinal region: lumbar Neurogenic claudication status: with neurogenic claudication Narcotic dependence F11.20 Pain management R52
[2023-07-24 09:56] VITALS: BP 120/80; PULSE 90; O2SAT 98
== END 2023-07-24 09:04 | disposition home or self-care (01) ==
LOC: HO.HMGC 08:02
PROVIDERS: PCP Internal Medicine; Visit Provider Internal Medicine
DX: M48.062 Spinal stenosis, lumbar region with neurogenic claudication (principal); F11.20 Opioid dependence, uncomplicated; R52 Pain, unspecified
CPT/HCPCS: 99213

== ENCOUNTER 2023-08-21 15:20 | Outpatient (AMB) | payer OTHER, SELFPAY ==
[2023-08-21 15:36] VITALS: BP 130/80; PULSE 86; O2SAT 96; BMI 44.3
--- NOTE | 2023-08-21 15:36 | MHC.PC.OV ---
Vital Signs 08/21/23 15:36 Height 5 ft 2 in Weight 242 lb BMI 44.3 BP 130/80 Blood Pressure Location Rt brachial Position Sitting Pulse 86 Pulse Source Pulse Oximeter Pulse Oximetry (%) 96 Oxygen Delivery Method Room Air Intake Visit Reasons: Follow Up~ Allergies Sulfa (Sulfonamide Antibiotics) [SULFA (SULFONAMIDE ANTIBIOTICS)] Allergy (Intermediate, Verified 08/21/23 15:37) HIVES, unknown-childhood amoxicillin [Augmentin] Allergy (Unknown, Verified 08/21/23 15:37) rash, itching clavulanic acid [Augmentin] Allergy (Unknown, Verified 08/21/23 15:37) rash, itching gabapentin Adverse Reaction (Unknown, Verified 08/21/23 15:37) N/V Fentanyl Patch Adverse Reaction (Unknown, Uncoded 04/27/23 07:34) skin irritation Medication List - Last Reconciled 08/21/23 by Carlyn Reddy MD albuterol sulfate 90 mcg/actuation 1 inh inhalation QID PRN carisoprodol (Soma) 350 mg PO BEDTIME PRN 30 days furosemide 20 mg PO QAM PRN 30 days lidocaine 5% 1 patch topical DAILY 30 days montelukast 10 mg PO DAILY 30 days nystatin (Nystop) 1 appl topical BID 30 days oxycodone 10 mg PO TID PRN 30 days triamcinolone acetonide 0.1% 1 appl topical BID 90 days Tobacco use date assessed: 08/21/23 Dental Screening Dental Screen Date: 08/21/23 Did you have a dental visit in the last 12 months?: Yes Did you have a dental problem in the last 6 months where you did not have access to dental care?: No Was dental information given to patient?: Patient has dentist HPI Follow Up~ HPI Details Patient 63-year-old female came in today for her regular follow-up appointment Chronic ear infections, patient has ENT appointment in November Patient says that she had an appointment but then she ended up having COVID infection 2 weeks ago when she to cancel at After COVID patient has been having congested cough spitting up green phlegm and her ear is hurting again Her chest is clear on examination, have sent azithromycin for the patient Gout is stable Patient does have allergies and she is taking her allergy medication regularly she is on long-acting anti histamine as well as montelukast Lumbar spinal stenosis managed with the help of narcotic pain medication and muscle relaxer Soma Patient is complying with the treatment plan no signs of abuse. Due for a new drug contract and urine drug screen. She also take furosemide off and on for swelling in her ankles and hands. Morbid obesity with BMI of 44.3 patient had difficulty losing weight Follow-up 1 month [facility] Medical History Severe acute respiratory syndrome coronavirus 2 (SARS-CoV-2) detected Pain management Narcotic dependence Obesity Eczema Gout Spinal stenosis Surgical History History of surgery History of colonoscopy History of section Family History Father Cancer COPD (chronic obstructive pulmonary disease) Mother Arthritis Maternal Grandfather Diabetes mellitus Maternal Grandmother Emphysema lung Paternal Grandfather No problems noted. Paternal Grandmother No problems noted. Brother No problems noted. Brother No problems noted. Brother No problems noted. Sister No problems noted. Sister No problems noted. Son No problems noted. Daughter No problems noted. 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 1. Little interest or pleasure in doing things: not at all 2. Feeling down, depressed, or hopeless: not at all 3. Trouble falling or staying asleep, or sleeping too much: several days 4. Feeling tired or having little energy: several days 5. Poor appetite or overeating: several days 6. Feeling bad about yourself - or that you are a failure or have let yourself or your family down: not at all 7. Trouble concentrating on things, such as reading the newspaper or watching television: not at all 8. Moving or speaking so slowly that other people could have noticed. Or the opposite - being so fidgety or restless that you have been moving around a lot more than usual: not at all 9. Thoughts that you would be better off or of hurting yourself in some way: not at all Total score: 3 Depression Screening Interpretation: Negative Depression Screening Done: Yes 25145 - PHQ-9 Billing: Yes Source: Developed by Drs. Jem Quintero, Candi Felix, Jose Guadalupe Espinosa and colleagues, with an educational conchita from [employer]. Thrive Questionnaire Date Thrive assessed: 03/21/22 AUDIT C Alcohol Use Questionnaire (AUDIT-C) 1. How often do you have a drink containing alcohol?: Never 3. How often do you have six or more drinks on one occasion?: Never Total Score: 0 Score Reviewed/Action Taken: Yes JESSICA-7 AMB Questionnaire JESSICA-7 Date JESSICA - 7 assessed: 06/20/22 Source: Developed by Drs. Jem Quintero, Candi Felix, Jose Guadalupe Espinosa and colleagues, with an educational conchita from [employer]. Review of Systems Const Denies chills and Denies fever(s) ENT Denies epistaxis and Denies nasal discharge Card Denies chest pain Resp Denies hemoptysis GI Denies diarrhea and Denies nausea Skin/Breast Denies rash Neuro Reports no additional complaints Psych Reports no additional complaints Endo Reports no additional complaints Physical exam (Primary Care) Vital Signs: Last Vital Signs Pulse 86 08/21/23 15:36 BP 130/80 08/21/23 15:36 Pulse Ox 96 08/21/23 15:36 Oxygen Delivery Method Room Air 08/21/23 15:36 BMI result Body Mass Index 44.3 Tobacco/Smoking Status: Tobacco use Status Tobacco use date assessed 08/21/23 08/21/23 15:38 Patient Tobacco Use Status Former Tobacco user 08/21/23 15:38 e-Cigarette/Vaping Use Never Used 08/21/23 15:38 PHQ-9: PHQ-9 Score PHQ-9: Total score 3 08/21/23 16:00 Depression Screening Interpretation: Negative Thrive Assessment: Date of Thrive Assessment Date Thrive assessed 03/21/22 08/21/23 15:38 Const General: cooperative, comfortable and no acute distress Orientation/consciousness: patient oriented x3 HENMT Head: Yes normocephalic Eyes General: appearance normal, both eyes and all related structures Neck Neck: Yes supple Resp Effort & Inspection: normal respiratory effort, no cough and no stridor Cardio Rhythm: regular rhythm Heart sounds: S1 normal heart sound present and S2 normal heart sound present Skin General skin exam: turgor normal Neuro General: patient oriented x3, tone normal and moves all extremities Extrem Right lower extremity: no edema Left lower extremity: no edema Assessment and Plan Assessment & Plan (1) Narcotic dependence: Code(s): F11.20 - Opioid dependence, uncomplicated (2) Pain management: Code(s): R52 - Pain, unspecified (3) Morbid obesity due to excess calories: Code(s): E66.01 - Morbid (severe) obesity due to excess calories (4) Spinal stenosis: Code(s): M48.00 - Spinal stenosis, site unspecified Qualifiers: Neurogenic claudication status: with neurogenic claudication Spinal region: lumbar Qualified Code(s): M48.062 - Spinal stenosis, lumbar region with neurogenic claudication (5) Upper respiratory tract infection: Code(s): J06.9 - Acute upper respiratory infection, unspecified Qualifiers: URI type: acute laryngotracheitis Qualified Code(s): J04.2 - Acute laryngotracheitis (6) Eustachian tube disorder: Code(s): H69.90 - Unspecified Eustachian tube disorder, unspecified ear Qualifiers: Laterality: left Qualified Code(s): H69.92 - Unspecified Eustachian tube disorder, left ear (7) Environmental allergies: Code(s): Z91.09 - Other allergy status, other than to drugs and biological substances (8) Gout: Code(s): M10.9 - Gout, unspecified Qualifiers: Chronicity: chronic Gout etiology: idiopathic Gout site: foot Laterality: unspecified laterality Presence of tophus: without tophus Qualified Code(s): M1A.0790 - Idiopathic chronic gout, unspecified ankle and foot, without tophus (tophi) (9) Eczema: Code(s): L30.9 - Dermatitis, unspecified Qualifiers: Eczema type: flexural Qualified Code(s): L20.82 - Flexural eczema Plan Patient 63-year-old female came in today for her regular follow-up appointment Chronic ear infections, patient has ENT appointment in November Patient says that she had an appointment but then she ended up having COVID infection 2 weeks ago when she to cancel at After COVID patient has been having congested cough spitting up green phlegm and her ear is hurting again Her chest is clear on examination, have sent azithromycin for the patient Gout is stable Patient does have allergies and she is taking her allergy medication regularly she is on long-acting anti histamine as well as montelukast Lumbar spinal stenosis managed with the help of narcotic pain medication and muscle relaxer Soma Patient is complying with the treatment plan no signs of abuse. Due for a new drug contract and urine drug screen. She also take furosemide off and on for swelling in her ankles and hands. Morbid obesity with BMI of 44.3 patient had difficulty losing weight Follow-up 1 month Orders: Orders Opiates GCMS Expanded, Ur Today F11.20 - Opioid dependence, uncomplicated, M48.00 - Spinal stenosis, site unspecified, R52 - Pain, unspecified Drug Screen Urine Today F11.20 - Opioid dependence, uncomplicated, M48.00 - Spinal stenosis, site unspecified, R52 - Pain, unspecified Medications: New azithromycin Take 2 tablets today then 1 daily 250 mg PO ONCE 6 tabs 0RF 5 days J06.9 - Acute upper respiratory infection, unspecified azithromycin Take 2 tablets today then 1 daily 250 mg PO ONCE 6 tabs 0RF 5 days J06.9 - Acute upper respiratory infection, unspecified Refilled oxycodone ok to fill early this month as patient is going on vacation 10 mg PO TID PRN 90 tabs 0RF pain 30 days F11.20 - Opioid dependence, uncomplicated, M17.10 - Unilateral primary osteoarthritis, unspecified knee, M48.00 - Spinal stenosis, site unspecified, R52 - Pain, unspecified carisoprodol (Soma) 350 mg PO BEDTIME PRN 30 tabs 0RF muscle pain 30 days M48.00 - Spinal stenosis, site unspecified Coding Level of Care Code Est Pt Level 4 (67596) Diagnoses Narcotic dependence F11.20 Pain management R52 Morbid obesity due to excess calories E66.01 Spinal stenosis of lumbar region with neurogenic claudication M48.062 Neurogenic claudication status: with neurogenic claudication Spinal region: lumbar Acute laryngotracheitis J04.2 URI type: acute laryngotracheitis Disorder of left eustachian tube H69.92 Laterality: left Environmental allergies Z91.09 Idiopathic chronic gout of foot without tophus, unspecified laterality M1A.0790 Chronicity: chronic Gout etiology: idiopathic Gout site: foot Laterality: unspecified laterality Presence of tophus: without tophus Flexural eczema L20.82 Eczema type: flexural
== END 2023-08-21 16:55 | disposition home or self-care (01) ==
PROVIDERS: PCP Internal Medicine; Visit Provider Internal Medicine
DX: H69.92 Unspecified Eustachian tube disorder, left ear (principal); F11.20 Opioid dependence, uncomplicated; E66.01 Morbid (severe) obesity due to excess calories; Z68.41 Body mass index [BMI] 40.0-44.9, adult; R52 Pain, unspecified; M48.062 Spinal stenosis, lumbar region with neurogenic claudication; J04.2 Acute laryngotracheitis; Z91.09 Other allergy status, other than to drugs and biological substances; M1A.0790 Idiopathic chronic gout, unspecified ankle and foot, without tophus (tophi); L20.82 Flexural eczema
CPT/HCPCS: 99214

== ENCOUNTER 2023-08-22 11:26 | Outpatient (REF) | payer OTHER, SELFPAY ==
[2023-08-22 11:59] LABS: Amphetamine Screen Urine Not Detected (Not Detect); Barbiturates, Urine Not Detected (Not Detect); Benzodiazepines Screen Urine Not Detected (Not Detect); Cannabinoid Screen Urine Not Detected (Not Detect); Cocaine Screen Urine Not Detected (Not Detect); Fentanyl, urine Not Detected (Not Detect); Opiate Screen Urine Not Detected (Not Detect); Phencyclidine Screen Urine Not Detected (Not Detect)
[2023-08-27 10:11] LABS: Codeine, Ur NEGATIVE; Hydrocodone, Ur NEGATIVE; Hydromorphone, Ur NEGATIVE; Morphine, Ur NEGATIVE; Norhydrocodone, Ur NEGATIVE
== END 2023-08-22 11:27 | disposition home or self-care (01) ==
LOC: HO.LNP 11:26
PROVIDERS: Visit Provider Internal Medicine
DX: M48.00 Spinal stenosis, site unspecified (principal); F11.20 Opioid dependence, uncomplicated; R52 Pain, unspecified
CPT/HCPCS: 80307; 80365; G0480

== ENCOUNTER 2023-09-20 09:13 | Outpatient (AMB) | payer OTHER, SELFPAY ==
--- NOTE | 2023-09-20 09:17 | A.OFFPC_ITS ---
Intake Visit Reasons: 1 Month Follow Up ~ Allergies Sulfa (Sulfonamide Antibiotics) [SULFA (SULFONAMIDE ANTIBIOTICS)] Allergy (Intermediate, Verified 09/20/23 09:17) HIVES, unknown-childhood amoxicillin [Augmentin] Allergy (Unknown, Verified 09/20/23 09:17) rash, itching clavulanic acid [Augmentin] Allergy (Unknown, Verified 09/20/23 09:17) rash, itching gabapentin Adverse Reaction (Unknown, Verified 09/20/23 09:17) N/V Fentanyl Patch Adverse Reaction (Unknown, Uncoded 04/27/23 07:34) skin irritation Medication List - Last Reconciled 09/20/23 by Carlyn Reddy MD albuterol sulfate 90 mcg/actuation 1 inh inhalation QID PRN carisoprodol (Soma) 350 mg PO BEDTIME PRN 30 days furosemide 20 mg PO QAM PRN 30 days lidocaine 5% 1 patch topical DAILY 30 days montelukast 10 mg PO DAILY 30 days nystatin (Nystop) 1 appl topical BID 30 days oxycodone 10 mg PO TID PRN 30 days triamcinolone acetonide 0.1% 1 appl topical BID 90 days Tobacco use date assessed: 09/20/23 Dental Screening Dental Screen Date: 09/20/23 Did you have a dental visit in the last 12 months?: Yes Did you have a dental problem in the last 6 months where you did not have access to dental care?: No Was dental information given to patient?: Patient has dentist HPI 1 Month Follow Up ~ HPI Details This is a telemedicine visit Patient have severe spinal stenosis lumbar spine, she is currently on narcotic pain management and Soma for muscle spasms Patient is complying with the treatment plan , drug screening up-to-date She is due for pain contract renewal we will have that taken care of next visit. Medications sent patient is aware of side effects [facility] Medical History Severe acute respiratory syndrome coronavirus 2 (SARS-CoV-2) detected Pain management Narcotic dependence Obesity Eczema Gout Spinal stenosis Surgical History History of surgery History of colonoscopy History of section Family History Father Cancer COPD (chronic obstructive pulmonary disease) Mother Arthritis Maternal Grandfather Diabetes mellitus Maternal Grandmother Emphysema lung Paternal Grandfather No problems noted. Paternal Grandmother No problems noted. Brother No problems noted. Brother No problems noted. Brother No problems noted. Sister No problems noted. Sister No problems noted. Son No problems noted. Daughter No problems noted. 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 How often do you have a drink containing alcohol?: Never 3. How often do you have six or more drinks on one occasion?: Never Total Score: 0 Score Reviewed/Action Taken: Yes JESSICA-7 AMB Questionnaire JESSICA-7 Date JESSICA - 7 assessed: 06/20/22 Source: Developed by Drs. Jem Quintero, Candi Felix, Jose Guadalupe Espinosa and colleagues, with an educational conchita from [employer]. Review of Systems Const Denies chills and Denies fever(s) ENT Denies epistaxis and Denies nasal discharge Card Denies chest pain Resp Denies hemoptysis GI Denies diarrhea and Denies nausea Skin/Breast Denies rash Neuro Reports no additional complaints Psych Reports no additional complaints Endo Reports no additional complaints Physical exam (Primary Care) Tobacco/Smoking Status: Tobacco use Status Tobacco use date assessed 09/20/23 09/20/23 09:18 Patient Tobacco Use Status Former Tobacco user 09/20/23 09:18 e-Cigarette/Vaping Use Never Used 09/20/23 09:18 Thrive Assessment: Date of Thrive Assessment Date Thrive assessed 03/21/22 09/20/23 09:18 Telehealth Telehealth Location of provider rendering services: practice address Location of patient: address on file Patient Identification confirmed using: Name, : Yes Telehealth method: voice only Patient verbally consented to treatment: Yes Patient verbally consented to billing insurance company: Yes Patient informed of any privacy concerns related to visit: Yes Minutes spent on Phone/Video with Pt.: 12 Assessment and Plan Assessment & Plan (1) Narcotic dependence: Code(s): F11.20 - Opioid dependence, uncomplicated (2) Pain management: Code(s): R52 - Pain, unspecified (3) Spinal stenosis: Code(s): M48.00 - Spinal stenosis, site unspecified Qualifiers: Spinal region: lumbar Neurogenic claudication status: with neurogenic claudication Qualified Code(s): M48.062 - Spinal stenosis, lumbar region with neurogenic claudication Plan This is a telemedicine visit Patient have severe spinal stenosis lumbar spine, she is currently on narcotic pain management and Soma for muscle spasms Patient is complying with the treatment plan , drug screening up-to-date She is due for pain contract renewal we will have that taken care of next visit. Medications sent patient is aware of side effects Medications: Refilled oxycodone ok to fill early this month as patient is going on vacation 10 mg PO TID 30 days PRN 90 tabs 0RF pain F11.20 - Opioid dependence, uncomplicated, M17.10 - Unilateral primary osteoarthritis, unspecified knee, M48.00 - Spinal stenosis, site unspecified, R52 - Pain, unspecified carisoprodol (Soma) 350 mg PO BEDTIME 30 days PRN 30 tabs 0RF muscle pain M48.00 - Spinal stenosis, site unspecified Coding Level of Care Code Tele Est Pt Level 3 (31937) Diagnoses Narcotic dependence F11.20 Pain management R52 Spinal stenosis of lumbar region with neurogenic claudication M48.062 Spinal region: lumbar Neurogenic claudication status: with neurogenic claudication
== END 2023-09-20 11:59 | disposition home or self-care (01) ==
LOC: HO.HMGC 09:13
PROVIDERS: PCP Internal Medicine; Visit Provider Internal Medicine
DX: F11.20 Opioid dependence, uncomplicated (principal); R52 Pain, unspecified; M48.062 Spinal stenosis, lumbar region with neurogenic claudication
CPT/HCPCS: 99213

== ENCOUNTER 2023-10-18 08:25 | Outpatient (AMB) | payer OTHER, SELFPAY ==
--- NOTE | 2023-10-18 08:35 | MHC.PC.OV ---
Intake Visit Reasons: 4 Wk F/U~[phone] Allergies Sulfa (Sulfonamide Antibiotics) [SULFA (SULFONAMIDE ANTIBIOTICS)] Allergy (Intermediate, Verified 10/18/23 08:35) HIVES, unknown-childhood amoxicillin [Augmentin] Allergy (Unknown, Verified 10/18/23 08:35) rash, itching clavulanic acid [Augmentin] Allergy (Unknown, Verified 10/18/23 08:35) rash, itching gabapentin Adverse Reaction (Unknown, Verified 10/18/23 08:35) N/V Fentanyl Patch Adverse Reaction (Unknown, Uncoded 04/27/23 07:34) skin irritation Medication List - Last Reconciled 10/18/23 by Carlyn Reddy MD albuterol sulfate 90 mcg/actuation 1 inh inhalation QID PRN carisoprodol (Soma) 350 mg PO BEDTIME PRN 30 days furosemide 20 mg PO QAM PRN 30 days lidocaine 5% 1 patch topical DAILY 30 days montelukast 10 mg PO DAILY 30 days nystatin (Nystop) 1 appl topical BID 30 days oxycodone 10 mg PO TID PRN 30 days triamcinolone acetonide 0.1% 1 appl topical BID 90 days Tobacco use date assessed: 10/18/23 Dental Screening Dental Screen Date: 10/18/23 Did you have a dental visit in the last 12 months?: Yes Did you have a dental problem in the last 6 months where you did not have access to dental care?: No Was dental information given to patient?: Patient has dentist HPI 4 Wk F/U~[phone] HPI Details 63-year-old female this is a telemedicine visit Patient suffers from severe spinal stenosis back radiating to both legs and is taking oxycodone and Soma with some relief. Medication refill sent, patient is complying with the treatment plan no signs of abuse She also have chronic ear infection which flares up off and on, she has been waiting for ENT appointment and it has been a year. Patient says that they canceled on her again and now she has appointment in February. I am changing the referral to a different ENT specialist for her Meanwhile I have sent azithromycin for the patient. [facility] Medical History Severe acute respiratory syndrome coronavirus 2 (SARS-CoV-2) detected Pain management Narcotic dependence Obesity Eczema Gout Spinal stenosis Surgical History History of surgery History of colonoscopy History of section Family History Father Cancer COPD (chronic obstructive pulmonary disease) Mother Arthritis Maternal Grandfather Diabetes mellitus Maternal Grandmother Emphysema lung Paternal Grandfather No problems noted. Paternal Grandmother No problems noted. Brother No problems noted. Brother No problems noted. Brother No problems noted. Sister No problems noted. Sister No problems noted. Son No problems noted. Daughter No problems noted. 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 1. Little interest or pleasure in doing things: not at all 2. Feeling down, depressed, or hopeless: not at all 3. Trouble falling or staying asleep, or sleeping too much: nearly every day 4. Feeling tired or having little energy: not at all 5. Poor appetite or overeating: not at all 6. Feeling bad about yourself - or that you are a failure or have let yourself or your family down: not at all 7. Trouble concentrating on things, such as reading the newspaper or watching television: not at all 8. Moving or speaking so slowly that other people could have noticed. Or the opposite - being so fidgety or restless that you have been moving around a lot more than usual: not at all 9. Thoughts that you would be better off or of hurting yourself in some way: not at all Total score: 3 Depression Screening Interpretation: Negative Depression Screening Done: Yes 66008 - PHQ-9 Billing: Yes Source: Developed by Drs. Jem Quintero, Candi Felix, Jose Guadalupe Espinosa and colleagues, with an educational conchita from [employer]. Thrive Questionnaire Date Thrive assessed: 10/18/23 I am a: Patient What is your living situation today?: I have a steady place to live Within the past 12 months, did the food you bought not last and you didn't have the money to get more?: Never true Within the past 12 months, did you worry whether your food would run out before you got money to buy more?: Never true Do you have trouble paying for medicines?: No Do you have trouble getting transportation to medical appointments?: No Do you have trouble paying your heating and electricity bill?: No Do you have trouble taking care of your child, family member or friend?: No Do you have trouble with day-to-day activities such as bathing, preparing meals, shopping, managing finances, etc.?: No Are you currently unemployed and looking for a job?: No Are you interested in more education?: No Please select the resources that you would like help with: None Currently or been in a relationship where the following occur: no concerns reported AUDIT C Alcohol Use Questionnaire (AUDIT-C) 1. How often do you have a drink containing alcohol?: Never 3. How often do you have six or more drinks on one occasion?: Never Total Score: 0 Score Reviewed/Action Taken: Yes JESSICA-7 AMB Questionnaire JESSICA-7 Date JESSICA - 7 assessed: 10/18/23 Feeling nervous, anxious, or on edge: 0 = Not at all Not being able to stop or control worryin = Not at all Worrying too much about different things: 0 = Not at all Trouble relaxin = Not at all Being so restless that it is hard to sit still: 0 = Not at all Becoming easily annoyed or irritable: 0 = Not at all Feeling afraid as if something awful might happen: 0 = Not at all Total JESSICA-7 score (0-4 normal; 5-9 mild; 10-14 moderate; 15-21 severe): 0 Source: Developed by Drs. Jem Quintero, Candi Felix, Jose Guadalupe Espinosa and colleagues, with an educational conchita from [employer]. JESSICA-7 Assessment Billing JESSICA-7 Assessment Tool: JESSICA-7 Assessment 41358 Review of Systems Const Denies chills and Denies fever(s) ENT Denies epistaxis and Denies nasal discharge Card Denies chest pain Resp Denies chest congestion, Denies cough and Denies hemoptysis GI Denies diarrhea and Denies nausea Skin/Breast Denies rash Neuro Reports no additional complaints Psych Reports no additional complaints Endo Reports no additional complaints Physical exam (Primary Care) Tobacco/Smoking Status: Tobacco use Status Tobacco use date assessed 10/18/23 10/18/23 08:37 Patient Tobacco Use Status Former Tobacco user 10/18/23 08:37 e-Cigarette/Vaping Use Never Used 10/18/23 08:37 PHQ-9: PHQ-9 Score PHQ-9: Total score 3 10/18/23 08:37 Depression Screening Interpretation: Negative Thrive Assessment: Date of Thrive Assessment Date Thrive assessed 10/18/23 10/18/23 08:37 Currently or been in a relationship where the following occur: no concerns reported Telehealth Telehealth Location of provider rendering services: practice address Location of patient: address on file Patient Identification confirmed using: Name, : Yes Telehealth method: video Patient verbally consented to treatment: Yes Patient verbally consented to billing insurance company: Yes Patient informed of any privacy concerns related to visit: Yes Minutes spent on Phone/Video with Pt.: 12 Assessment and Plan Assessment & Plan (1) Narcotic dependence: Code(s): F11.20 - Opioid dependence, uncomplicated (2) Pain management: Code(s): R52 - Pain, unspecified (3) Spinal stenosis: Code(s): M48.00 - Spinal stenosis, site unspecified Qualifiers: Spinal region: lumbar Neurogenic claudication status: with neurogenic claudication Qualified Code(s): M48.062 - Spinal stenosis, lumbar region with neurogenic claudication (4) Eustachian tube disorder: Code(s): H69.90 - Unspecified Eustachian tube disorder, unspecified ear Qualifiers: Laterality: left Qualified Code(s): H69.92 - Unspecified Eustachian tube disorder, left ear Plan 63-year-old female this is a telemedicine visit Patient suffers from severe spinal stenosis back radiating to both legs and is taking oxycodone and Soma with some relief. Medication refill sent, patient is complying with the treatment plan no signs of abuse She also have chronic ear infection which flares up off and on, she has been waiting for ENT appointment and it has been a year. Patient says that they canceled on her again and now she has appointment in February. I am changing the referral to a different ENT specialist for her Meanwhile I have sent azithromycin for the patient. Orders: Referrals Ear/Nose/Throat Referral H69.90 - Unspecified Eustachian tube disorder, unspecified ear Medications: New azithromycin Take 2 tablets today then 1 daily 250 mg PO ONCE 5 days 6 tabs 0RF J06.9 - Acute upper respiratory infection, unspecified Refilled oxycodone ok to fill early this month as patient is going on vacation 10 mg PO TID 30 days PRN 90 tabs 0RF pain F11.20 - Opioid dependence, uncomplicated, M17.10 - Unilateral primary osteoarthritis, unspecified knee, M48.00 - Spinal stenosis, site unspecified, R52 - Pain, unspecified carisoprodol (Soma) 350 mg PO BEDTIME 30 days PRN 30 tabs 0RF muscle pain M48.00 - Spinal stenosis, site unspecified Coding Level of Care Code Tele New Pt Level 3 (07366) Diagnoses Narcotic dependence F11.20 Pain management R52 Spinal stenosis of lumbar region with neurogenic claudication M48.062 Spinal region: lumbar Neurogenic claudication status: with neurogenic claudication Disorder of left eustachian tube H69.92 Laterality: left Additional Codes JESSICA-7 Assessment Billing - JESSICA-7 Assessment Tool: JESSICA-7 Assessment 65263 ([id number])
== END 2023-10-18 09:36 | disposition home or self-care (01) ==
PROVIDERS: PCP Internal Medicine; Visit Provider Internal Medicine
DX: F11.20 Opioid dependence, uncomplicated (principal); R52 Pain, unspecified; M48.062 Spinal stenosis, lumbar region with neurogenic claudication; H69.92 Unspecified Eustachian tube disorder, left ear
CPT/HCPCS: 99213

== ENCOUNTER 2023-11-15 08:15 | Outpatient (AMB) | payer OTHER, SELFPAY ==
--- NOTE | 2023-11-15 09:11 | A.OFFPC_ITS ---
Intake Visit Reasons: med F/u~[phone] Allergies Sulfa (Sulfonamide Antibiotics) [SULFA (SULFONAMIDE ANTIBIOTICS)] Allergy (Intermediate, Verified 11/15/23 09:13) HIVES, unknown-childhood amoxicillin [Augmentin] Allergy (Unknown, Verified 11/15/23 09:13) rash, itching clavulanic acid [Augmentin] Allergy (Unknown, Verified 11/15/23 09:13) rash, itching gabapentin Adverse Reaction (Unknown, Verified 11/15/23 09:13) N/V Fentanyl Patch Adverse Reaction (Unknown, Uncoded 04/27/23 07:34) skin irritation Medication List - Last Reconciled 11/15/23 by Carlyn Reddy MD albuterol sulfate 90 mcg/actuation 1 inh inhalation QID PRN carisoprodol (Soma) 350 mg PO BEDTIME PRN 30 days lidocaine 5% 1 patch topical DAILY 30 days nystatin (Nystop) 1 appl topical BID 30 days oxycodone 10 mg PO TID PRN 30 days triamcinolone acetonide 0.1% 1 appl topical BID 90 days Tobacco use date assessed: 11/15/23 Dental Screening Dental Screen Date: 11/15/23 Did you have a dental visit in the last 12 months?: Yes Did you have a dental problem in the last 6 months where you did not have access to dental care?: No Was dental information given to patient?: Patient has dentist HPI med F/u~[phone] HPI Details 63-year-old female this is a telemedicin e visit Feeling much better after taking a Z-Connor Still waiting for ENT appointment which is in May Patient suffers from severe spinal stenosis back radiating to both legs and is taking oxycodone and Soma with some relief. Medication refill sent, patient is complying with the treatment plan no signs of abuse Patient is complying with the treatment plan no signs of abuse She have monthly follow-up appointment before we send the medication. [facility] Medical History Severe acute respiratory syndrome coronavirus 2 (SARS-CoV-2) detected Pain management Narcotic dependence Obesity Eczema Gout Spinal stenosis Surgical History History of surgery History of colonoscopy History of section Family History Father Cancer COPD (chronic obstructive pulmonary disease) Mother Arthritis Maternal Grandfather Diabetes mellitus Maternal Grandmother Emphysema lung Paternal Grandfather No problems noted. Paternal Grandmother No problems noted. Brother No problems noted. Brother No problems noted. Brother No problems noted. Sister No problems noted. Sister No problems noted. Son No problems noted. Daughter No problems noted. 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 How often do you have a drink containing alcohol?: Never 3. How often do you have six or more drinks on one occasion?: Never Total Score: 0 Score Reviewed/Action Taken: Yes JESSICA-7 AMB Questionnaire JESSICA-7 Date JESSICA - 7 assessed: 10/18/23 Source: Developed by Drs. Jem Quintero, Candi Felix, Jose Guadalupe Espinosa and colleagues, with an educational conchita from [employer]. Review of Systems Const Denies chills and Denies fever(s) ENT Denies epistaxis and Denies nasal discharge Card Denies chest pain Resp Denies chest congestion, Denies cough and Denies hemoptysis GI Denies diarrhea and Denies nausea Skin/Breast Denies rash Neuro Reports no additional complaints Psych Reports no additional complaints Endo Reports no additional complaints Physical exam (Primary Care) Tobacco/Smoking Status: Tobacco use Status Tobacco use date assessed 11/15/23 11/15/23 09:13 Patient Tobacco Use Status Former Tobacco user 11/15/23 09:13 e-Cigarette/Vaping Use Never Used 11/15/23 09:13 Thrive Assessment: Date of Thrive Assessment Date Thrive assessed 10/18/23 11/15/23 09:13 Telehealth Telehealth Location of provider rendering services: practice address Location of patient: address on file Patient Identification confirmed using: Name, : Yes Telehealth method: video (Was attempted) Patient verbally consented to treatment: Yes Patient verbally consented to billing insurance company: Yes Patient informed of any privacy concerns related to visit: Yes Minutes spent on Phone/Video with Pt.: 12 Assessment and Plan Assessment & Plan (1) Narcotic dependence: Code(s): F11.20 - Opioid dependence, uncomplicated (2) Pain management: Code(s): R52 - Pain, unspecified (3) Spinal stenosis: Code(s): M48.00 - Spinal stenosis, site unspecified Qualifiers: Spinal region: lumbar Neurogenic claudication status: with neurogenic claudication Qualified Code(s): M48.062 - Spinal stenosis, lumbar region with neurogenic claudication (4) Eustachian tube disorder: Code(s): H69.90 - Unspecified Eustachian tube disorder, unspecified ear Qualifiers: Laterality: left Qualified Code(s): H69.92 - Unspecified Eustachian tube disorder, left ear Plan 63-year-old female this is a telemedicine visit Feeling much better after taking a Z-Connor Still waiting for ENT appointment which is in May Patient suffers from severe spinal stenosis back radiating to both legs and is taking oxycodone and Soma with some relief. Medication refill sent, patient is complying with the treatment plan no signs of abuse Patient is complying with the treatment plan no signs of abuse She have monthly follow-up appointment before we send the medication. Medications: Refilled carisoprodol (Soma) 350 mg PO BEDTIME PRN 30 tabs 0RF muscle pain 30 days M48.00 - Spinal stenosis, site unspecified oxycodone ok to fill early this month as patient is going on vacation 10 mg PO TID PRN 90 tabs 0RF pain 30 days F11.20 - Opioid dependence, uncomplicated, M17.10 - Unilateral primary osteoarthritis, unspecified knee, M48.00 - Spinal stenosis, site unspecified, R52 - Pain, unspecified Coding Level of Care Code Tele Est Pt Level 3 (66885) Diagnoses Narcotic dependence F11.20 Pain management R52 Spinal stenosis of lumbar region with neurogenic claudication M48.062 Spinal region: lumbar Neurogenic claudication status: with neurogenic claudication Disorder of left eustachian tube H69.92 Laterality: left
== END 2023-11-15 16:07 | disposition home or self-care (01) ==
LOC: HO.HMGC 08:15
PROVIDERS: PCP Internal Medicine; Visit Provider Internal Medicine
DX: F11.20 Opioid dependence, uncomplicated (principal); R52 Pain, unspecified; M48.062 Spinal stenosis, lumbar region with neurogenic claudication; H69.92 Unspecified Eustachian tube disorder, left ear
CPT/HCPCS: 99213

== ENCOUNTER 2023-12-15 08:58 | Outpatient (REF) | payer OTHER, SELFPAY | END 2023-12-15 08:59 | disposition home or self-care (01) | LOC: HO.MAMMO 08:58 | PROVIDERS: PCP Internal Medicine; Visit Provider Internal Medicine | DX: Z12.31 Encounter for screening mammogram for malignant neoplasm of breast (principal) | CPT/HCPCS: 77063; 77067 ==

== ENCOUNTER → 2023-12-15 09:15 | Outpatient (BNV) | payer OTHER, SELFPAY | PROVIDERS: PCP Internal Medicine; Visit Provider Radiology Diagnostic Radiology | DX: Z12.31 Encounter for screening mammogram for malignant neoplasm of breast (principal) | CPT/HCPCS: 77063; 77067 ==

== ENCOUNTER 2024-01-10 08:29 | Outpatient (AMB) | payer OTHER, SELFPAY ==
--- NOTE | 2024-01-10 08:34 | A.OFFPC_ITS ---
Vital Signs 01/10/24 08:34 Height 5 ft 2 in Intake Visit Reasons: Back Pain Referral~[phone] Allergies Sulfa (Sulfonamide Antibiotics) [SULFA (SULFONAMIDE ANTIBIOTICS)] Allergy (Intermediate, Verified 01/10/24 08:34) HIVES, unknown-childhood amoxicillin [Augmentin] Allergy (Unknown, Verified 01/10/24 08:34) rash, itching clavulanic acid [Augmentin] Allergy (Unknown, Verified 01/10/24 08:34) rash, itching gabapentin Adverse Reaction (Unknown, Verified 01/10/24 08:34) N/V Fentanyl Patch Adverse Reaction (Unknown, Uncoded 04/27/23 07:34) skin irritation Medication List - Last Reconciled 01/10/24 by Carlyn Reddy MD carisoprodol (Soma) 350 mg PO BEDTIME PRN 30 days lidocaine 5% 1 patch topical DAILY 30 days oxycodone 10 mg PO TID PRN 30 days triamcinolone acetonide 0.1% 1 appl topical BID 90 days Tobacco use date assessed: 01/10/24 Fall risk assessment: No Falls in past year Last assessed Fall Risk: 01/10/24 Dental Screening Dental Screen Date: 01/10/24 Did you have a dental visit in the last 12 months?: Yes Did you have a dental problem in the last 6 months where you did not have access to dental care?: No Was dental information given to patient?: Patient has dentist HPI Back Pain Referral~[phone] HPI Details Patient is 64-year-old female this is our telemedicine video conference to fill her pain medication Patient suffers from back pain due to spinal stenosis, she is on Soma 350 mg at night and oxycodone 10 mg 3 times a day. Patient is complying with the treatment plan no signs of abuse She is having right shoulder pain, patient says that she visited her orthopedic doctor Dr. Alba and had MRI done She was told that she has rotator cuff tear and lot of arthritis and she is in need of shoulder replacement. Patient says that she is reluctant to go for that She has a follow-up appointment with him on January 20 to further discuss it. She has also developed pain left side of her neck which is responding to meds such and heat. Patient was advised to continue message ink and heat therapy and wait until week 10 days and then update me on neck pain. [facility]PLACED BY [facility] Medical History Severe acute respiratory syndrome coronavirus 2 (SARS-CoV-2) detected Pain management Narcotic dependence Obesity Eczema Gout Spinal stenosis Surgical History History of surgery History of colonoscopy History of section Family History Father Cancer COPD (chronic obstructive pulmonary disease) Mother Arthritis Maternal Grandfather Diabetes mellitus Maternal Grandmother Emphysema lung Paternal Grandfather No problems noted. Paternal Grandmother No problems noted. Brother No problems noted. Brother No problems noted. Brother No problems noted. Sister No problems noted. Sister No problems noted. Son No problems noted. Daughter No problems noted. 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 How often do you have a drink containing alcohol?: Never 3. How often do you have six or more drinks on one occasion?: Never Total Score: 0 Score Reviewed/Action Taken: Yes JESSICA-7 AMB Questionnaire JESSICA-7 Date JESSICA - 7 assessed: 10/18/23 Source: Developed by Drs. Jem Quintero, Candi Felix, Jose Guadalupe Espinosa and colleagues, with an educational conchita from [email or web address]. Review of Systems Const Denies chills and Denies fever(s) ENT Denies epistaxis and Denies nasal discharge Card Denies chest pain Resp Denies chest congestion, Denies cough and Denies hemoptysis GI Denies diarrhea and Denies nausea Skin/Breast Denies rash Neuro Reports no additional complaints Psych Reports no additional complaints Endo Reports no additional complaints Physical exam (Primary Care) Tobacco/Smoking Status: Tobacco use Status Tobacco use date assessed 01/10/24 01/10/24 08:36 Patient Tobacco Use Status Former Tobacco user 01/10/24 08:36 e-Cigarette/Vaping Use Never Used 01/10/24 08:36 Thrive Assessment: Date of Thrive Assessment Date Thrive assessed 10/18/23 01/10/24 08:36 Telehealth Telehealth Location of provider rendering services: practice address Location of patient: address on file Patient Identification confirmed using: Name, : Yes Telehealth method: video Patient verbally consented to treatment: Yes Patient verbally consented to billing insurance company: Yes Patient informed of any privacy concerns related to visit: Yes Minutes spent on Phone/Video with Pt.: 16 Assessment and Plan Assessment & Plan (1) Spinal stenosis: Code(s): M48.00 - Spinal stenosis, site unspecified Qualifiers: Neurogenic claudication status: with neurogenic claudication Spinal region: lumbar Qualified Code(s): M48.062 - Spinal stenosis, lumbar region with neurogenic claudication (2) Rotator cuff tear arthropathy of right shoulder: Code(s): M75.101 - Unspecified rotator cuff tear or rupture of right shoulder, not specified as traumatic; M12.811 - Other specific arthropathies, not elsewhere classified, right shoulder (3) Spasm of left trapezius muscle: Code(s): M62.838 - Other muscle spasm (4) Narcotic dependence: Code(s): F11.20 - Opioid dependence, uncomplicated (5) Pain management: Code(s): R52 - Pain, unspecified Plan Patient is 64-year-old female this is our telemedicine video conference to fill her pain medication Patient suffers from back pain due to spinal stenosis, she is on Soma 350 mg at night and oxycodone 10 mg 3 times a day. Patient is complying with the treatment plan no signs of abuse She is having right shoulder pain, patient says that she visited her orthopedic doctor Dr. Alba and had MRI done She was told that she has rotator cuff tear and lot of arthritis and she is in need of shoulder replacement. Patient says that she is reluctant to go for that She has a follow-up appointment with him on January 20 to further discuss it. She has also developed pain left side of her neck which is responding to meds such and heat. Patient was advised to continue message ink and heat therapy and wait until week 10 days and then update me on neck pain. Medications: Refilled oxycodone ok to fill early this month as patient is going on vacation 10 mg PO TID PRN 90 tabs 0RF pain 30 days F11.20 - Opioid dependence, uncomplicated, M17.10 - Unilateral primary osteoarthritis, unspecified knee, M48.00 - Spinal stenosis, site unspecified, R52 - Pain, unspecified carisoprodol (Soma) 350 mg PO BEDTIME PRN 30 tabs 0RF muscle pain 30 days M48.00 - Spinal stenosis, site unspecified Coding Level of Care Code Est Pt Level 3 (73892) Diagnoses Spinal stenosis of lumbar region with neurogenic claudication M48.062 Neurogenic claudication status: with neurogenic claudication Spinal region: lumbar Rotator cuff tear arthropathy of right shoulder M75.101; M12.811 Spasm of left trapezius muscle M62.838 Narcotic dependence F11.20 Pain management R52
== END 2024-01-10 15:22 | disposition home or self-care (01) ==
LOC: HO.HMGC 08:29
PROVIDERS: PCP Internal Medicine; Visit Provider Internal Medicine
DX: M48.062 Spinal stenosis, lumbar region with neurogenic claudication (principal); F11.20 Opioid dependence, uncomplicated; M75.101 Unspecified rotator cuff tear or rupture of right shoulder, not specified as traumatic; M12.811 Other specific arthropathies, not elsewhere classified, right shoulder; M62.838 Other muscle spasm; R52 Pain, unspecified
CPT/HCPCS: 99213

== ENCOUNTER 2024-01-31 15:15 | Outpatient (AMB) | payer OTHER, SELFPAY ==
--- NOTE | 2024-01-31 15:31 | MHC.OFFVIS ---
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 Agricultural Education Instructor: Agricultural Education Instructor Present (Vicky) Allergies Sulfa (Sulfonamide Antibiotics) [SULFA (SULFONAMIDE ANTIBIOTICS)] Allergy (Intermediate, Verified 01/31/24 15:32) HIVES, unknown-childhood amoxicillin [Augmentin] Allergy (Unknown, Verified 01/31/24 15:32) rash, itching clavulanic acid [Augmentin] Allergy (Unknown, Verified 01/31/24 15:32) rash, itching gabapentin Adverse Reaction (Unknown, Verified 01/31/24 15:32) N/V Fentanyl Patch Adverse Reaction (Unknown, Uncoded 04/27/23 07:34) skin irritation HPI Comments Details: She is a postmenopausal woman 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 She is doing well with no concerns. Attempting to eat a healthy diet with calcium and vitamin D and stays active with her day care. Currently sexually active. Denies any vaginal dryness or irritation. STI testing offered; she declines. Last pap smear; 2020. Last mammogram; 2023. Colonoscopy is UTD. Denies any family history of breast, ovarian or colon cancer. [facility] Medical History Severe acute respiratory syndrome coronavirus 2 (SARS-CoV-2) detected Pain management Narcotic dependence Obesity Eczema Gout Spinal stenosis Surgical History History of surgery History of colonoscopy History of section Family History Father Cancer COPD (chronic obstructive pulmonary disease) Mother Arthritis Maternal Grandfather Diabetes mellitus Maternal Grandmother Emphysema lung Paternal Grandfather No problems noted. Paternal Grandmother No problems noted. Brother No problems noted. Brother No problems noted. Brother No problems noted. Sister No problems noted. Sister No problems noted. Son No problems noted. Daughter No problems noted. 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 Sexual orientation: Straight/Heterosexual Gender identity: Female Cognitive needs: No Hearing needs: No Vision needs: Yes Female Reproductive History Menstrual Menopause type: natural Total pregnancies: 2 Full term: 2 Number of Living Children: 2 Date of last pap smear: 05/03/21 (neg pap and hpv) Date of Mammogram: 12/15/23 (Birad 1) Review of Systems Const All systems reviewed & are unremarkable except as noted in HPI and below Reports as per HPI Eyes Reports no additional complaints ENT Reports no additional complaints Card Reports no additional complaints Resp Reports no additional complaints GI Reports as per HPI and Reports no additional complaints Reports as per HPI Musc Reports no additional complaints Skin/Breast Reports as per HPI Neuro Reports no additional complaints Psych Reports no additional complaints Endo Reports no additional complaints Mike/Lymph Reports no additional complaints Aller/Immun Reports no additional complaints Physical Exam Vital Signs: Last Vital Signs BP 126/76 01/31/24 15:32 BMI result Body Mass Index 43.3 Const General: cooperative, healthy appearing, no acute distress, well developed and alert Orientation/consciousness: patient oriented x3 HEENT Head: Yes normal to inspection Eyes General: appearance normal, both eyes and all related structures Neck Neck: Yes normal visual inspection Thyroid: Thyroid normal Chest Chest palpation & inspection: normal inspection of the chest and other (no puckering, dimpling, peau de orange, retraction, discharge, masses) Breast/axilla inspection: normal inspection of the breasts Breast/axilla palpation: normal palpation of the breasts Resp Effort & Inspection: normal respiratory effort GI Inspection: Yes normal to inspection and Yes obesity Palpation (GI): Soft to palpation Rectal Exam - Female: deferred General: Yes bladder normal to palpation External Female Exam: normal external appearance and normal appearance of the urethra Speculum Exam - Vagina: normal appearance of the vagina, normal palpation, normal vaginal discharge and vagina atrophic Speculum Exam - Cervix: normal appearance of the cervix and normal palpation Bimanual exam- vagina & uterus: normal bimanual exam, normal palpation, uterine size normal, bladder normal to palpation, normal palpation and non-tender Bimanual Exam- Adnexa, other: no masses Skin General skin exam: no rashes or lesions noted Rashes: no rashes Neuro General: patient oriented x3 Cognition (Neuro): normal cognition Extrem General: Yes normal to inspection Psych Attitude: cooperative Thought process: Normal thought process present Assessment & Plan Assessment & Plan (1) Encounter for well woman exam with routine gynecological exam: Code(s): Z01.419 - Encounter for gynecological examination (general) (routine) without abnormal findings Plan Discussed: Current recommendations for pap smears per ASCCP guidelines. Breast awareness, periodic self breast exams and yearly mammogram. Maintain a healthy lifestyle, well balanced diet including Calcium 1,200 mg and Vitamin D 600 IU daily, and routine exercise. Contact the office with any postmenopausal bleeding. Patient verbalizes understanding and agrees to the plan of care. She was given opportunity to ask questions and all questions were answered to the best of my ability. RTO in 1 year for annual pre sales technical consultant exam. This note is constructed using voice recognition software. While every effort has been made to ensure accuracy, furrier apprentice errors may have been included.
[2024-01-31 15:32] VITALS: BP 126/76; BMI 43.3
== END 2024-01-31 16:17 | disposition home or self-care (01) ==
LOC: HO.HWS 15:15
PROVIDERS: PCP Internal Medicine; Visit Provider Advanced Practice Midwife
DX: Z01.419 Encounter for gynecological examination (general) (routine) without abnormal findings (principal)
CPT/HCPCS: 99396

== ENCOUNTER → 2024-01-31 15:15 | Outpatient (BNVA) | payer OTHER, SELFPAY | PROVIDERS: PCP Internal Medicine; Visit Provider Advanced Practice Midwife ==

== ENCOUNTER 2024-02-08 07:22 | Outpatient (AMB) | payer OTHER, SELFPAY ==
--- NOTE | 2024-02-08 07:56 | A.OFFPC_ITS ---
Intake Visit Reasons: Medication F/U [phone] Allergies Sulfa (Sulfonamide Antibiotics) [SULFA (SULFONAMIDE ANTIBIOTICS)] Allergy (Intermediate, Verified 01/31/24 15:32) HIVES, unknown-childhood amoxicillin [Augmentin] Allergy (Unknown, Verified 01/31/24 15:32) rash, itching clavulanic acid [Augmentin] Allergy (Unknown, Verified 01/31/24 15:32) rash, itching gabapentin Adverse Reaction (Unknown, Verified 01/31/24 15:32) N/V Fentanyl Patch Adverse Reaction (Unknown, Uncoded 04/27/23 07:34) skin irritation Medication List - Last Reconciled 02/08/24 by Carlyn Reddy MD carisoprodol (Soma) 350 mg PO BEDTIME PRN 30 days lidocaine 5% 1 patch topical DAILY 30 days oxycodone 10 mg PO TID PRN 30 days triamcinolone acetonide 0.1% 1 appl topical BID 90 days Tobacco use date assessed: 01/10/24 Dental Screening Dental Screen Date: 01/10/24 HPI Medication F/U [phone] HPI Details Patient is 64-year-old female this is telemedicine conference to fill her pain medication Patient has seen site identification specialist for her bilateral shoulder pain, she says that she was given cortisone injection Which did help her. Patient suffers from back pain due to spinal stenosis, she is on Soma 350 mg at night and oxycodone 10 mg 3 times a day. Patient is complying with the treatment plan no signs of abuse [facility] Medical History Severe acute respiratory syndrome coronavirus 2 (SARS-CoV-2) detected Pain management Narcotic dependence Obesity Eczema Gout Spinal stenosis Surgical History History of surgery History of colonoscopy History of section Family History Father Cancer COPD (chronic obstructive pulmonary disease) Mother Arthritis Maternal Grandfather Diabetes mellitus Maternal Grandmother Emphysema lung Paternal Grandfather No problems noted. Paternal Grandmother No problems noted. Brother No problems noted. Brother No problems noted. Brother No problems noted. Sister No problems noted. Sister No problems noted. Son No problems noted. Daughter No problems noted. 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 Jem Quintero, Candi Felix, Jose Guadalupe Espinosa and colleagues, with an educational conchita from [employer]. Review of Systems Const Denies chills and Denies fever(s) ENT Denies epistaxis and Denies nasal discharge Card Denies chest pain Resp Denies chest congestion, Denies cough and Denies hemoptysis GI Denies diarrhea and Denies nausea Skin/Breast Denies rash Neuro Reports no additional complaints Psych Reports no additional complaints Endo Reports no additional complaints Physical exam (Primary Care) Tobacco/Smoking Status: Tobacco use Status Tobacco use date assessed 01/10/24 02/08/24 07:59 Patient Tobacco Use Status Former Tobacco user 02/08/24 07:59 e-Cigarette/Vaping Use Never Used 02/08/24 07:59 Thrive Assessment: Date of Thrive Assessment Date Thrive assessed 10/18/23 02/08/24 07:59 Telehealth Telehealth Telehealth Platform: Telephone Location of provider rendering services: practice address Location of patient: address on file Patient Identification confirmed using: Name, : Yes Telehealth method: voice only Patient verbally consented to treatment: Yes Patient verbally consented to billing insurance company: Yes Patient informed of any privacy concerns related to visit: Yes Assessment and Plan Assessment & Plan (1) Spinal stenosis: Code(s): M48.00 - Spinal stenosis, site unspecified Qualifiers: Neurogenic claudication status: with neurogenic claudication Spinal region: lumbar Qualified Code(s): M48.062 - Spinal stenosis, lumbar region with neurogenic claudication (2) Rotator cuff tear arthropathy of right shoulder: Code(s): M75.101 - Unspecified rotator cuff tear or rupture of right shoulder, not specified as traumatic; M12.811 - Other specific arthropathies, not elsewhere classified, right shoulder (3) Narcotic dependence: Code(s): F11.20 - Opioid dependence, uncomplicated (4) Pain management: Code(s): R52 - Pain, unspecified Plan Patient is 64-year-old female this is telemedicine conference to fill her pain medication Patient has seen site identification specialist for her bilateral shoulder pain, she says that she was given cortisone injection Which did help her. Patient suffers from back pain due to spinal stenosis, she is on Soma 350 mg at night and oxycodone 10 mg 3 times a day. Patient is complying with the treatment plan no signs of abuse Medications: Refilled oxycodone ok to fill early this month as patient is going on vacation 10 mg PO TID PRN 90 tabs 0RF pain 30 days F11.20 - Opioid dependence, uncomplicated, M17.10 - Unilateral primary osteoarthritis, unspecified knee, M48.00 - Spinal stenosis, site unspecified, R52 - Pain, unspecified carisoprodol (Soma) 350 mg PO BEDTIME PRN 30 tabs 0RF muscle pain 30 days M48.00 - Spinal stenosis, site unspecified Coding Level of Care Code Tele Est Pt Level 3 (65206) Diagnoses Spinal stenosis of lumbar region with neurogenic claudication M48.062 Neurogenic claudication status: with neurogenic claudication Spinal region: lumbar Rotator cuff tear arthropathy of right shoulder M75.101; M12.811 Narcotic dependence F11.20 Pain management R52 Time Spent (min) 20
== END 2024-02-08 09:05 | disposition home or self-care (01) ==
LOC: HO.HMGC 07:22
PROVIDERS: PCP Internal Medicine; Visit Provider Internal Medicine
DX: M48.062 Spinal stenosis, lumbar region with neurogenic claudication (principal); M75.101 Unspecified rotator cuff tear or rupture of right shoulder, not specified as traumatic; M12.811 Other specific arthropathies, not elsewhere classified, right shoulder; F11.20 Opioid dependence, uncomplicated; R52 Pain, unspecified
CPT/HCPCS: 99213

== ENCOUNTER 2024-03-07 07:04 | Outpatient (AMB) | payer OTHER, SELFPAY ==
--- NOTE | 2024-03-07 08:32 | A.OFFPC_ITS ---
Intake Visit Reasons: med f/u Allergies Sulfa (Sulfonamide Antibiotics) [SULFA (SULFONAMIDE ANTIBIOTICS)] Allergy (Intermediate, Verified 01/31/24 15:32) HIVES, unknown-childhood amoxicillin [Augmentin] Allergy (Unknown, Verified 01/31/24 15:32) rash, itching clavulanic acid [Augmentin] Allergy (Unknown, Verified 01/31/24 15:32) rash, itching gabapentin Adverse Reaction (Unknown, Verified 01/31/24 15:32) N/V Fentanyl Patch Adverse Reaction (Unknown, Uncoded 04/27/23 07:34) skin irritation Medication List - Last Reconciled 03/07/24 by Carlyn Reddy MD carisoprodol (Soma) 350 mg PO BEDTIME PRN 30 days lidocaine 5% 1 patch topical DAILY 30 days oxycodone 10 mg PO TID PRN 30 days triamcinolone acetonide 0.1% 1 appl topical BID 90 days Tobacco use date assessed: 01/10/24 Dental Screening Dental Screen Date: 01/10/24 HPI med f/u HPI Details Patient is 64-year-old female this is telemedicine conference to fill her pain medication Patient suffers from back pain due to spinal stenosis, she is on Soma 350 mg at night and oxycodone 10 mg 3 times a day. Patient is complying with the treatment plan no signs of abuse She has finally had ENT appointment, she was told that she has bilateral ear drum rupture Wax was removed, patient does not have any ear complaints at this time [facility] Medical History Severe acute respiratory syndrome coronavirus 2 (SARS-CoV-2) detected Pain management Narcotic dependence Obesity Eczema Gout Spinal stenosis Surgical History History of surgery History of colonoscopy History of section Family History Father Cancer COPD (chronic obstructive pulmonary disease) Mother Arthritis Maternal Grandfather Diabetes mellitus Maternal Grandmother Emphysema lung Paternal Grandfather No problems noted. Paternal Grandmother No problems noted. Brother No problems noted. Brother No problems noted. Brother No problems noted. Sister No problems noted. Sister No problems noted. Son No problems noted. Daughter No problems noted. 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 Jem Quintero, Candi Felix, Jose Guadalupe Espinosa and colleagues, with an educational conchita from [employer]. Review of Systems Const Denies chills and Denies fever(s) ENT Denies epistaxis and Denies nasal discharge Card Denies chest pain Resp Denies chest congestion, Denies cough and Denies hemoptysis GI Denies diarrhea and Denies nausea Skin/Breast Denies rash Neuro Reports no additional complaints Psych Reports no additional complaints Endo Reports no additional complaints Physical exam (Primary Care) Tobacco/Smoking Status: Tobacco use Status Tobacco use date assessed 01/10/24 02/08/24 07:59 Patient Tobacco Use Status Former Tobacco user 02/08/24 07:59 e-Cigarette/Vaping Use Never Used 02/08/24 07:59 Thrive Assessment: Date of Thrive Assessment Date Thrive assessed 10/18/23 02/08/24 07:59 Telehealth Telehealth Telehealth Platform: Telephone Location of provider rendering services: practice address Location of patient: address on file Patient Identification confirmed using: Name, : Yes Telehealth method: video Patient verbally consented to treatment: Yes Patient verbally consented to billing insurance company: Yes Patient informed of any privacy concerns related to visit: Yes Minutes spent on Phone/Video with Pt.: 13 Assessment and Plan Assessment & Plan (1) Spinal stenosis: Code(s): M48.00 - Spinal stenosis, site unspecified Qualifiers: Spinal region: lumbar Neurogenic claudication status: with neurogenic claudication Qualified Code(s): M48.062 - Spinal stenosis, lumbar region with neurogenic claudication (2) Narcotic dependence: Code(s): F11.20 - Opioid dependence, uncomplicated (3) Pain management: Code(s): R52 - Pain, unspecified (4) Eardrum rupture, bilateral: Code(s): H72.93 - Unspecified perforation of tympanic membrane, bilateral Plan Patient is 64-year-old female this is telemedicine conference to fill her pain medication Patient suffers from back pain due to spinal stenosis, she is on Soma 350 mg at night and oxycodone 10 mg 3 times a day. Patient is complying with the treatment plan no signs of abuse She has finally had ENT appointment, she was told that she has bilateral ear drum rupture Wax was removed, patient does not have any ear complaints at this time Medications: Refilled oxycodone ok to fill early this month as patient is going on vacation 10 mg PO TID PRN 90 tabs 0RF pain 30 days F11.20 - Opioid dependence, uncomplicated, M17.10 - Unilateral primary osteoarthritis, unspecified knee, M48.00 - Spinal stenosis, site unspecified, R52 - Pain, unspecified carisoprodol (Soma) 350 mg PO BEDTIME PRN 30 tabs 0RF muscle pain 30 days M48.00 - Spinal stenosis, site unspecified Coding Level of Care Code Tele Est Pt Level 3 (52131) Diagnoses Spinal stenosis of lumbar region with neurogenic claudication M48.062 Spinal region: lumbar Neurogenic claudication status: with neurogenic claudication Narcotic dependence F11.20 Pain management R52 Eardrum rupture, bilateral H72.93
== END 2024-03-07 08:25 | disposition home or self-care (01) ==
LOC: HO.HMGC 07:04
PROVIDERS: PCP Internal Medicine; Visit Provider Internal Medicine
DX: M48.062 Spinal stenosis, lumbar region with neurogenic claudication (principal); F11.20 Opioid dependence, uncomplicated; R52 Pain, unspecified; H72.93 Unspecified perforation of tympanic membrane, bilateral
CPT/HCPCS: 99213

== ENCOUNTER 2024-04-02 14:26 | Outpatient (AMB) | payer OTHER, SELFPAY ==
--- NOTE | 2024-04-02 14:35 | A.OFFPC_ITS ---
Vital Signs 04/02/24 14:37 Height 5 ft 2 in Weight 236 lb BMI 43.2 BP 130/80 Blood Pressure Location Rt brachial Position Sitting Pulse 96 Pulse Source Pulse Oximeter Pulse Oximetry (%) 96 Oxygen Delivery Method Room Air Intake Visit Reasons: Annual PE Allergies Sulfa (Sulfonamide Antibiotics) [SULFA (SULFONAMIDE ANTIBIOTICS)] Allergy (Intermediate, Verified 04/02/24 14:37) HIVES, unknown-childhood amoxicillin [Augmentin] Allergy (Unknown, Verified 04/02/24 14:37) rash, itching clavulanic acid [Augmentin] Allergy (Unknown, Verified 04/02/24 14:37) rash, itching gabapentin Adverse Reaction (Unknown, Verified 04/02/24 14:37) N/V Fentanyl Patch Adverse Reaction (Unknown, Uncoded 04/02/24 14:37) skin irritation Medication List - Last Reconciled 04/02/24 by Carlyn Reddy MD carisoprodol (Soma) 350 mg PO BEDTIME PRN 30 days lidocaine 5% 1 patch topical DAILY 30 days oxycodone 10 mg PO TID PRN 30 days triamcinolone acetonide 0.1% 1 appl topical BID 90 days Tobacco use date assessed: 01/10/24 Dental Screening Dental Screen Date: 01/10/24 HPI Annual PE HPI Details Patient is morbidly obese female age 64 came in for physical exam Mammogram was December of this year OBGYN visit was January of this year She is due for colonoscopy this year, her last colonoscopy was in 2013 Medication list reviewed She is due for renewal of pain contract, patient is on chronic narcotic medication secondary to spinal stenosis Difficulty losing weight BMI is 43.2 Patient also have chronic eustachian tube disorder, she is established with ENT Gout and eczema is stable Due for urine drug screening as well Patient is complaining of waking up frequently at night due to her shoulder pain However due to morbid obesity I would like to rule out sleep apnea as well, sleep study ordered Patient was provided number of sleep labs so she can call in book her appointment She is requesting to be started on semaglutide injections due to obesity Patient knows how to inject due to her being diabetic, script sent She is aware of side effect , I have encouraged her to read all the side effects provided by the pharmacy. Follow-up 4 weeks for medication refill One year for physical exam REPLACED BY [facility] Medical History Severe acute respiratory syndrome coronavirus 2 (SARS-CoV-2) detected Pain management Narcotic dependence Obesity Eczema Gout Spinal stenosis Surgical History History of surgery History of colonoscopy History of section Family History Father Cancer COPD (chronic obstructive pulmonary disease) Mother Arthritis Maternal Grandfather Diabetes mellitus Maternal Grandmother Emphysema lung Paternal Grandfather No problems noted. Paternal Grandmother No problems noted. Brother No problems noted. Brother No problems noted. Brother No problems noted. Sister No problems noted. Sister No problems noted. Son No problems noted. Daughter No problems noted. 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 1. Little interest or pleasure in doing things: not at all 2. Feeling down, depressed, or hopeless: not at all 3. Trouble falling or staying asleep, or sleeping too much: not at all 4. Feeling tired or having little energy: not at all 5. Poor appetite or overeating: several days 6. Feeling bad about yourself - or that you are a failure or have let yourself or your family down: not at all 7. Trouble concentrating on things, such as reading the newspaper or watching television: not at all 8. Moving or speaking so slowly that other people could have noticed. Or the opposite - being so fidgety or restless that you have been moving around a lot more than usual: not at all 9. Thoughts that you would be better off or of hurting yourself in some way: not at all Total score: 1 Depression Screening Interpretation: Negative Depression Screening Done: Yes 29703 - PHQ-9 Billing: Yes Source: Developed by Drs. Jem Quintero, Candi Felix, Jose Guadalupe Espinosa and colleagues, with an educational conchita from [employer]. Thrive Questionnaire Date Thrive assessed: 10/18/23 JESSICA-7 AMB Questionnaire JESSICA-7 Date JESSICA - 7 assessed: 04/02/24 Feeling nervous, anxious, or on edge: 0 = Not at all Not being able to stop or control worryin = Not at all Worrying too much about different things: 0 = Not at all Trouble relaxin = Not at all Being so restless that it is hard to sit still: 0 = Not at all Becoming easily annoyed or irritable: 0 = Not at all Feeling afraid as if something awful might happen: 0 = Not at all Total JESSICA-7 score (0-4 normal; 5-9 mild; 10-14 moderate; 15-21 severe): 0 Source: Developed by Drs. Jem Quintero, Candi Felix, Jose Guadalupe Espinosa and colleagues, with an educational conchita from [employer]. JESSICA-7 Assessment Billing JESSICA-7 Assessment Tool: JESSICA-7 Assessment 76163 Review of Systems Const Denies chills, Denies fever(s) and Denies headache(s) Eyes Denies blurry vision ENT Denies headache(s), Denies nasal discharge, Denies nasal obstruction, Denies odynophagia and Denies sinus pain Card Denies chest pain at rest and Denies chest pain with activity Resp Denies cough and Denies hemoptysis GI Denies diarrhea, Denies odynophagia, Denies vomiting and Denies hematemesis Reports as per HPI Musc Denies abnormal gait Skin/Breast Reports as per HPI Neuro Denies Neuro-related abnormal movements, Denies Abnormal speech present, Denies abnormal gait, Denies headache(s) and Denies Sensory deficit (Neuro) Psych Denies mood swings and Denies paranoia Endo Reports as per HPI Mike/Lymph Reports as per HPI Aller/Immun Reports as per HPI Physical exam (Primary Care) Vital Signs: Last Vital Signs Pulse 96 04/02/24 14:37 BP 130/80 04/02/24 14:37 Pulse Ox 96 04/02/24 14:37 Oxygen Delivery Method Room Air 04/02/24 14:37 BMI result Body Mass Index 43.2 Tobacco/Smoking Status: Tobacco use Status Tobacco use date assessed 01/10/24 04/02/24 14:36 Patient Tobacco Use Status Former Tobacco user 04/02/24 14:36 e-Cigarette/Vaping Use Never Used 04/02/24 14:36 Depression Screening Interpretation: Negative Thrive Assessment: Date of Thrive Assessment Date Thrive assessed 10/18/23 04/02/24 14:36 Const General: cooperative, comfortable and no acute distress Orientation/consciousness: patient oriented x3 HENMT Head: Yes normocephalic and Yes atraumatic Eyes General: appearance normal, both eyes and all related structures Pupils: Equal, round and reactive pupils present EOM: EOMs intact bilaterally Neck Neck: Yes supple and No lymphadenopathy Thyroid: Thyroid normal Lymphatic: no lymphadenopathy noted Resp Effort & Inspection: normal respiratory effort and able to speak in complete sentences Auscultation: clear to auscultation bilaterally Cardio Heart sounds: S1 normal heart sound present and S2 normal heart sound present GI Palpation (GI): Soft to palpation and nontender Auscultation: normal bowel sounds General: Yes no CVA tenderness Back/Spine/Pelvis Back: no CVA tenderness Skin General skin exam: elasticity normal and turgor normal Neuro General: patient oriented x3 and gait normal Cranial nerves: Yes Equal, round and reactive pupils present Speech: No Abnormal speech present Sensory Exam: No Sensory deficit (Neuro) Extrem Other: Limited range of motion of both shoulders chronic General: Yes normal exam except as noted Assessment and Plan Assessment & Plan (1) Encounter for general adult medical examination with abnormal findings: Code(s): Z00.01 - Encounter for general adult medical examination with abnormal findings (2) Morbid obesity due to excess calories: Code(s): E66.01 - Morbid (severe) obesity due to excess calories (3) Fatty liver: Code(s): K76.0 - Fatty (change of) liver, not elsewhere classified (4) Environmental allergies: Code(s): Z91.09 - Other allergy status, other than to drugs and biological substances (5) Osteoarthritis, knee: Code(s): M17.10 - Unilateral primary osteoarthritis, unspecified knee Qualifiers: Osteoarthritis type: primary Laterality: bilateral Qualified Code(s): M17.0 - Bilateral primary osteoarthritis of knee (6) Pain management: Code(s): R52 - Pain, unspecified (7) Narcotic dependence: Code(s): F11.20 - Opioid dependence, uncomplicated (8) Spinal stenosis: Code(s): M48.00 - Spinal stenosis, site unspecified Qualifiers: Neurogenic claudication status: with neurogenic claudication Spinal region: lumbar Qualified Code(s): M48.062 - Spinal stenosis, lumbar region with neurogenic claudication (9) Gout: Code(s): M10.9 - Gout, unspecified Qualifiers: Chronicity: chronic Gout etiology: idiopathic Gout site: foot Laterality: unspecified laterality Presence of tophus: without tophus Qualified Code(s): M1A.0790 - Idiopathic chronic gout, unspecified ankle and foot, without tophus (tophi) (10) Eczema: Code(s): L30.9 - Dermatitis, unspecified Qualifiers: Eczema type: flexural Qualified Code(s): L20.82 - Flexural eczema (11) Daytime somnolence: Code(s): R40.0 - Somnolence (12) Snoring: Code(s): R06.83 - Snoring (13) Frequent nocturnal awakening: Code(s): G47.00 - Insomnia, unspecified Plan Patient is morbidly obese female age 64 came in for physical exam Mammogram was December this year OBGYN visit was January of this year She is due for colonoscopy this year, her last colonoscopy was in 2013 Medication list reviewed She is due for renewal of pain contract, patient is on chronic narcotic medication secondary to spinal stenosis Difficulty losing weight BMI is 43.2 Patient also have chronic eustachian tube disorder, she is established with ENT Gout and eczema is stable Due for urine drug screening as well Patient is complaining of waking up frequently at night due to her shoulder pain However due to morbid obesity I would like to rule out sleep apnea as well, sleep study ordered Patient was provided number of sleep labs so she can call in book her appointment She is requesting to be started on semaglutide injections due to obesity Patient knows how to inject due to her being diabetic, script sent She is aware of side effect , I have encouraged her to read all the side effects provided by the pharmacy. Follow-up 4 weeks for medication refill One year for physical exam Orders: Orders Vitamin D 25-OH (D2 and D3) Today E66.01 - Morbid (severe) obesity due to excess calories, F11.20 - Opioid dependence, uncomplicated, K76.0 - Fatty (change of) liver, not elsewhere classified, L20.82 - Flexural eczema, M17.10 - Unilateral primary osteoarthritis, unspecified knee, M1A.0790 - Idiopathic chronic gout, unspecified ankle and foot, without tophus (tophi), M48.062 - Spinal stenosis, lumbar region with neurogenic claudication, R52 - Pain, unspecified, Z00.01 - Encounter for general adult medical examination with abnormal findings, Z91.09 - Other allergy status, other than to drugs and biological substances Opiates GCMS Expanded, Ur Today E66.01 - Morbid (severe) obesity due to excess calories, F11.20 - Opioid dependence, uncomplicated, K76.0 - Fatty (change of) liver, not elsewhere classified, L20.82 - Flexural eczema, M17.10 - Unilateral primary osteoarthritis, unspecified knee, M1A.0790 - Idiopathic chronic gout, unspecified ankle and foot, without tophus (tophi), M48.062 - Spinal stenosis, lumbar region with neurogenic claudication, R52 - Pain, unspecified, Z00.01 - Encounter for general adult medical examination with abnormal findings, Z91.09 - Other allergy status, other than to drugs and biological substances RT home sleep study Today E66.01 - Morbid (severe) obesity due to excess calories, G47.00 - Insomnia, unspecified, R06.83 - Snoring, R40.0 - Somnolence Complete Blood Count Auto Diff Today E66.01 - Morbid (severe) obesity due to excess calories, F11.20 - Opioid dependence, uncomplicated, K76.0 - Fatty (change of) liver, not elsewhere classified, L20.82 - Flexural eczema, M17.10 - Unilateral primary osteoarthritis, unspecified knee, M1A.0790 - Idiopathic chronic gout, unspecified ankle and foot, without tophus (tophi), M48.062 - Spinal stenosis, lumbar region with neurogenic claudication, R52 - Pain, unspecified, Z00.01 - Encounter for general adult medical examination with abnormal findings, Z91.09 - Other allergy status, other than to drugs and biological substances Comprehensive Met. Panel Today E66.01 - Morbid (severe) obesity due to excess calories, F11.20 - Opioid dependence, uncomplicated, K76.0 - Fatty (change of) liver, not elsewhere classified, L20.82 - Flexural eczema, M17.10 - Unilateral primary osteoarthritis, unspecified knee, M1A.0790 - Idiopathic chronic gout, unspecified ankle and foot, without tophus (tophi), M48.062 - Spinal stenosis, lumbar region with neurogenic claudication, R52 - Pain, unspecified, Z00.01 - Encounter for general adult medical examination with abnormal findings, Z91.09 - Other allergy status, other than to drugs and biological substances LDL Cholesterol Direct Today E66.01 - Morbid (severe) obesity due to excess calories, F11.20 - Opioid dependence, uncomplicated, K76.0 - Fatty (change of) liver, not elsewhere classified, L20.82 - Flexural eczema, M17.10 - Unilateral primary osteoarthritis, unspecified knee, M1A.0790 - Idiopathic chronic gout, unspecified ankle and foot, without tophus (tophi), M48.062 - Spinal stenosis, lumbar region with neurogenic claudication, R52 - Pain, unspecified, Z00.01 - Encounter for general adult medical examination with abnormal findings, Z91.09 - Other allergy status, other than to drugs and biological substances TSH reflex Free T4 Today E66.01 - Morbid (severe) obesity due to excess calories, F11.20 - Opioid dependence, uncomplicated, K76.0 - Fatty (change of) liver, not elsewhere classified, L20.82 - Flexural eczema, M17.10 - Unilateral primary osteoarthritis, unspecified knee, M1A.0790 - Idiopathic chronic gout, unspecified ankle and foot, without tophus (tophi), M48.062 - Spinal stenosis, lumbar region with neurogenic claudication, R52 - Pain, unspecified, Z00.01 - Encounter for general adult medical examination with abnormal findings, Z91.09 - Other allergy status, other than to drugs and biological substances Drug Screen Urine Today E66.01 - Morbid (severe) obesity due to excess calories, F11.20 - Opioid dependence, uncomplicated, K76.0 - Fatty (change of) liver, not elsewhere classified, L20.82 - Flexural eczema, M17.10 - Unilateral primary osteoarthritis, unspecified knee, M1A.0790 - Idiopathic chronic gout, unspecified ankle and foot, without tophus (tophi), M48.062 - Spinal stenosis, lumbar region with neurogenic claudication, R52 - Pain, unspecified, Z00.01 - Encounter for general adult medical examination with abnormal findings, Z91.09 - Other allergy status, other than to drugs and biological substances Referrals Gastroenterology Referral Z12.11 - Encounter for screening for malignant neoplasm of colon Medications: New semaglutide for 4 weeks 0.25 mg (0.368 mL) subcut QWEEK 30 days 2 mL 0RF Refilled carisoprodol (Soma) 350 mg PO BEDTIME 30 days PRN 30 tabs 0RF muscle pain M48.00 - Spinal stenosis, site unspecified lidocaine 5% 1 patch topical DAILY 30 days 30 ea 0RF oxycodone ok to fill early this month as patient is going on vacation 10 mg PO TID 30 days PRN 90 tabs 0RF pain F11.20 - Opioid dependence, uncomplicated, M17.10 - Unilateral primary osteoarthritis, unspecified knee, M48.00 - Spinal stenosis, site unspecified, R52 - Pain, unspecified nystatin (Nystop) 1 appl topical BID 30 days 60 grams 2RF Coding Level of Care Code Est Pt Level 3 (86397) Est Pt Prev Care 40-64y(51740) Diagnoses Encounter for general adult medical examination with abnormal findings Z00.01 Morbid obesity due to excess calories E66.01 Fatty liver K76.0 Environmental allergies Z91.09 Primary osteoarthritis of both knees M17.0 Osteoarthritis type: primary Laterality: bilateral Pain management R52 Narcotic dependence F11.20 Spinal stenosis of lumbar region with neurogenic claudication M48.062 Neurogenic claudication status: with neurogenic claudication Spinal region: lumbar Idiopathic chronic gout of foot without tophus, unspecified laterality M1A.0790 Chronicity: chronic Gout etiology: idiopathic Gout site: foot Laterality: unspecified laterality Presence of tophus: without tophus Flexural eczema L20.82 Eczema type: flexural Daytime somnolence R40.0 Snoring R06.83 Frequent nocturnal awakening G47.00 Additional Codes JESSICA-7 Assessment Billing - JESSICA-7 Assessment Tool: JESSICA-7 Assessment 26804 ([id number])
[2024-04-02 14:37] VITALS: BP 130/80; PULSE 96; O2SAT 96; BMI 43.2
== END 2024-04-02 14:55 | disposition home or self-care (01) ==
PROVIDERS: PCP Internal Medicine; Visit Provider Internal Medicine
DX: Z00.00 Encounter for general adult medical examination without abnormal findings (principal); E66.01 Morbid (severe) obesity due to excess calories; F11.20 Opioid dependence, uncomplicated; Z68.41 Body mass index [BMI] 40.0-44.9, adult; K76.0 Fatty (change of) liver, not elsewhere classified; Z91.09 Other allergy status, other than to drugs and biological substances; M17.0 Bilateral primary osteoarthritis of knee; R52 Pain, unspecified; M48.062 Spinal stenosis, lumbar region with neurogenic claudication; M1A.0790 Idiopathic chronic gout, unspecified ankle and foot, without tophus (tophi); L20.82 Flexural eczema; R40.0 Somnolence
CPT/HCPCS: 99396

== ENCOUNTER 2024-04-02 14:55 | Outpatient (REF) | payer OTHER, SELFPAY ==
[2024-04-02 16:13] LABS: MANUAL DIFF FLAG NO
[2024-04-02 16:36] LABS: Basophils Percent Auto 0.6 % (0-2); Eosinophils Absolute Auto 0.2 X10*3/uL (0.0-0.4); Eosinophils Percent Auto 3.4 % (0-4); Hematocrit 38.7 % (37.0-47.0); Hemoglobin 12.6 g/dl (12.0-16.0); Imm Gran Abs Auto 0.02 X10*3/uL (0.00-0.03); Imm Gran Pct Auto 0.4 % (0.0-0.4); Lymphocytes Absolute Auto 1.1 X10*3/uL (1.2-4.9); Lymphocytes Percent Auto 21.3 % (20-40); Mean Corpuscular HGB Conc 32.6 g/dl (31.0-35.0); Mean Corpuscular Hemoglobin 25.3 pg (27.0-33.0); Mean Corpuscular Volume 77.7 fL (80.0-98.0); Mean Platelet Volume 10.2 fL (9.4-12.3); Monocytes Absolute Auto 0.5 X10*3/uL (0.1-1.2); Monocytes Percent Auto 9.5 % (2-11); Neutrophils Absolute Auto 3.2 x10*3/uL (2.0-8.3); Neutrophils Percent Auto 64.8 % (45-73); Platelet Count 198 X10*3/uL (160-400); Red Blood Count 4.98 X10*6/uL (4.20-5.50); Red Cell Distribution Width 15.3 % (11.0-16.0); White Blood Count 4.9 X10*3/uL (4.8-10.8)
[2024-04-02 16:44] LABS: Alanine Aminotransferase 13 U/L (0-31); Albumin Level 4.3 g/dL (3.5-5.0); Alkaline Phosphatase 90 U/L (39-117); Anion Gap 10 (12-20); Aspartate Amino Transferase 18 U/L (5-31); Bilirubin Total 0.4 mg/dL (0.0-1.0); Blood Urea Nitrogen 22 mg/dL (9-16); Calcium 9.6 mg/dL (8.4-10.2); Carbon Dioxide 28 mmol/L (22-29); Chloride 106 mmol/L (96-108); Estimated Glomerular Filt Rate > 60; Glucose Random 97 mg/dL (60-115); Sodium 140 mmol/L (135-145); Total Protein 7.1 g/dL (6.5-8.0)
[2024-04-02 17:01] LABS: TSH reflex Free T4 2.99 uIU/mL (0.32-4.0)
[2024-04-02 17:54] LABS: Amphetamine Screen Urine Not Detected (Not Detect); Barbiturates, Urine Not Detected (Not Detect); Benzodiazepines Screen Urine Not Detected (Not Detect); Buprenorphine Scr Not Detected (Not Detect); Cannabinoid Screen Urine Not Detected (Not Detect); Cocaine Screen Urine Not Detected (Not Detect); Fentanyl, urine Not Detected (Not Detect); Methadone Screen, Urine Not Detected (Not Detect); Opiate Screen Urine POSITIVE (Not Detect); Oxycodone Screen Urine Positive (Not Detect); Phencyclidine Screen Urine Not Detected (Not Detect)
[2024-04-03 17:38] LABS: LDL Cholesterol Direct 131 mg/dL (<100)
[2024-04-06 16:49] LABS: Vitamin D 25-OH, D2 <4 ng/mL; Vitamin D 25-OH, D3 23 ng/mL; Vitamin D 25-OH, Total 23 ng/mL (30-100)
[2024-04-07 15:32] LABS: Hydromorphone, Ur NEGATIVE; Morphine, Ur NEGATIVE; Norhydrocodone, Ur NEGATIVE
[2024-04-07 15:33] LABS: Codeine, Ur NEGATIVE; Hydrocodone, Ur NEGATIVE
== END 2024-04-02 14:56 | disposition home or self-care (01) ==
LOC: HO.HMGCLDS 14:55
PROVIDERS: PCP Internal Medicine; Visit Provider Internal Medicine
DX: Z00.01 Encounter for general adult medical examination with abnormal findings (principal); E66.01 Morbid (severe) obesity due to excess calories; K76.0 Fatty (change of) liver, not elsewhere classified; Z91.09 Other allergy status, other than to drugs and biological substances; M17.10 Unilateral primary osteoarthritis, unspecified knee; R52 Pain, unspecified; F11.20 Opioid dependence, uncomplicated; M48.062 Spinal stenosis, lumbar region with neurogenic claudication; M1A.0790 Idiopathic chronic gout, unspecified ankle and foot, without tophus (tophi); L20.82 Flexural eczema
CPT/HCPCS: 80053; 80307; 80365; 82306; 83721; 84443; 85025; G0480

== ENCOUNTER 2024-05-02 07:38 | Outpatient (AMB) | payer BC, SELFPAY ==
--- NOTE | 2024-05-02 07:38 | A.OFFPC_ITS ---
Intake Visit Reasons: 1 mo follow up Allergies Sulfa (Sulfonamide Antibiotics) [SULFA (SULFONAMIDE ANTIBIOTICS)] Allergy (Int ermediate, Verified 04/02/24 14:37) HIVES, unknown-childhood amoxicillin [Augmentin] Allergy (Unknown, Verified 04/02/24 14:37) rash, itching clavulanic acid [Augmentin] Allergy (Unknown, Verified 04/02/24 14:37) rash, itching gabapentin Adverse Reaction (Unknown, Verified 04/02/24 14:37) N/V Fentanyl Patch Adverse Reaction (Unknown, Uncoded 04/02/24 14:37) skin irritation Medication List - Last Reconciled 05/02/24 by Carlyn Reddy MD azithromycin 250 mg PO ONCE 5 days carisoprodol (Soma) 350 mg PO BEDTIME PRN 30 days lidocaine 5% 1 patch topical DAILY 30 days nystatin (Nystop) 1 appl topical BID 30 days oxycodone 10 mg PO TID PRN 30 days semaglutide 0.25 mg (0.368 mL) subcut QWEEK 30 days triamcinolone acetonide 0.1% 1 appl topical BID 90 days Tobacco use date assessed: 01/10/24 Dental Screening Dental Screen Date: 01/10/24 HPI 1 mo follow up HPI Details It was 64-year-old female this is a telemedicine video conference Patient wanted to get on semaglutide injection for weight loss She is morbidly obese however insurance declined it Patient has a new insurance now I have sent the script again She suffers from spinal stenosis and will benefit from weight loss Her regular medications oxycodone and Soma sent as well Patient is complying with the treatment plan She is due for contract renewal for that she will come into the office next visit. [facility] Medical History Severe acute respiratory syndrome coronavirus 2 (SARS-CoV-2) detected Pain management Narcotic dependence Obesity Eczema Gout Spinal stenosis Surgical History History of surgery History of colonoscopy History of section Family History Father Cancer COPD (chronic obstructive pulmonary disease) Mother Arthritis Maternal Grandfather Diabetes mellitus Maternal Grandmother Emphysema lung Paternal Grandfather No problems noted. Paternal Grandmother No problems noted. Brother No problems noted. Brother No problems noted. Brother No problems noted. Sister No problems noted. Sister No problems noted. Son No problems noted. Daughter No problems noted. 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 Jem Quintero, Candi Felix, Jose Guadalupe Espinosa and colleagues, with an educational conchita from [employer]. Review of Systems Const Denies chills and Denies fever(s) ENT Denies epistaxis and Denies nasal discharge Card Denies chest pain Resp Denies chest congestion, Denies cough and Denies hemoptysis GI Denies diarrhea and Denies nausea Skin/Breast Denies rash Neuro Reports no additional complaints Psych Reports no additional complaints Endo Reports no additional complaints Physical exam (Primary Care) Tobacco/Smoking Status: Tobacco use Status Tobacco use date assessed 01/10/24 04/02/24 14:36 Patient Tobacco Use Status Former Tobacco user 04/02/24 14:36 e-Cigarette/Vaping Use Never Used 04/02/24 14:36 Thrive Assessment: Date of Thrive Assessment Date Thrive assessed 10/18/23 04/02/24 14:36 Telehealth Telehealth Telehealth Platform: [place] Location of provider rendering services: practice address Location of patient: address on file Patient Identification confirmed using: Name, : Yes Telehealth method: video Patient verbally consented to treatment: Yes Patient verbally consented to billing insurance company: Yes Patient informed of any privacy concerns related to visit: Yes Minutes spent on Phone/Video with Pt.: 13 Assessment and Plan Assessment & Plan (1) Morbid obesity due to excess calories: Code(s): E66.01 - Morbid (severe) obesity due to excess calories (2) Spinal stenosis: Code(s): M48.00 - Spinal stenosis, site unspecified Qualifiers: Spinal region: lumbar Neurogenic claudication status: with neurogenic claudication Qualified Code(s): M48.062 - Spinal stenosis, lumbar region with neurogenic claudication Plan It was 64-year-old female this is a telemedicine video conference Patient wanted to get on semaglutide injection for weight loss She is morbidly obese however insurance declined it Patient has a new insurance now I have sent the script again She suffers from spinal stenosis and will benefit from weight loss Her regular medications oxycodone and Soma sent as well Patient is complying with the treatment plan She is due for contract renewal for that she will come into the office next visit. Medications: Refilled oxycodone ok to fill early this month as patient is going on vacation 10 mg PO TID PRN 90 tabs 0RF pain 30 days F11.20 - Opioid dependence, uncomplicated, M17.10 - Unilateral primary osteoarthritis, unspecified knee, M48.00 - Spinal stenosis, site unspecified, R52 - Pain, unspecified carisoprodol (Soma) 350 mg PO BEDTIME PRN 30 tabs 0RF muscle pain 30 days M48.00 - Spinal stenosis, site unspecified semaglutide for 4 weeks 0.25 mg (0.368 mL) subcut QWEEK 2 mL 0RF 30 days Coding Level of Care Code Tele Est Pt Level 3 (72672) Diagnoses Morbid obesity due to excess calories E66.01 Spinal stenosis of lumbar region with neurogenic claudication M48.062 Spinal region: lumbar Neurogenic claudication status: with neurogenic claudication
== END 2024-05-02 07:54 | disposition home or self-care (01) ==
LOC: HO.HMGC 07:38
PROVIDERS: PCP Internal Medicine; Visit Provider Internal Medicine
DX: M48.062 Spinal stenosis, lumbar region with neurogenic claudication (principal); E66.01 Morbid (severe) obesity due to excess calories
CPT/HCPCS: 99213

== ENCOUNTER 2024-06-25 15:29 | Outpatient (AMB) | payer BC, SELFPAY ==
[2024-06-25 15:30] VITALS: BP 142/98; PULSE 107; O2SAT 97; BMI 42.2
--- NOTE | 2024-06-25 15:30 | A.OFFPC_ITS ---
Vital Signs 06/25/24 15:30 Height 5 ft 2 in Weight 231 lb BMI 42.2 BP 142/98 H Blood Pressure Location Lt brachial Position Sitting Pulse 107 H Pulse Source Pulse Oximeter Pulse Oximetry (%) 97 Oxygen Delivery Method Room Air Intake Visit Reasons: Med contract Allergies Sulfa (Sulfonamide Antibiotics) [SULFA (SULFONAMIDE ANTIBIOTICS)] Allergy (Intermediate, Verified 04/02/24 14:37) HIVES, unknown-childhood amoxicillin [Augmentin] Allergy (Unknown, Verified 04/02/24 14:37) rash, itching clavulanic acid [Augmentin] Allergy (Unknown, Verified 04/02/24 14:37) rash, itching gabapentin Adverse Reaction (Unknown, Verified 04/02/24 14:37) N/V Fentanyl Patch Adverse Reaction (Unknown, Uncoded 04/02/24 14:37) skin irritation Medication List - Last Reconciled 06/25/24 by Carlyn Reddy MD carisoprodol (Soma) 350 mg PO BEDTIME PRN 30 days lidocaine 5% 1 patch topical DAILY 30 days nystatin (Nystop) 1 appl topical BID 30 days oxycodone 10 mg PO TID PRN 30 days triamcinolone acetonide 0.1% 1 appl topical BID 90 days Wegovy (semaglutide (weight loss)) 0.25 mg (0.5 mL) subcut QWEEK NS Tobacco use date assessed: 06/25/24 Fall risk assessment: No Falls in past year Last assessed Fall Risk: 06/25/24 Dental Screening Dental Screen Date: 01/10/24 HPI Med contract HPI Details Patient is 64-year-old female came in today for her monthly pain management visit She is also on Wegovy injection 0.25 mg Patient has only lost 4 lb since March I am increasing the dose to 0.5 mg She is tolerating medication no side effects Her oxycodone script filled She is currently having flare-up of her rotator cuff inflammation right side Patient is established with orthopedic for that. Follow-up 4 weeks [facility] Medical History Severe acute respiratory syndrome coronavirus 2 (SARS-CoV-2) detected Pain management Narcotic dependence Obesity Eczema Gout Spinal stenosis Surgical History History of surgery History of colonoscopy History of section Family History Father Cancer COPD (chronic obstructive pulmonary disease) Mother Arthritis Maternal Grandfather Diabetes mellitus Maternal Grandmother Emphysema lung Paternal Grandfather No problems noted. Paternal Grandmother No problems noted. Brother No problems noted. Brother No problems noted. Brother No problems noted. Sister No problems noted. Sister No problems noted. Son No problems noted. Daughter No problems noted. 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 1. Little interest or pleasure in doing things: not at all 2. Feeling down, depressed, or hopeless: not at all 3. Trouble falling or staying asleep, or sleeping too much: nearly every day 4. Feeling tired or having little energy: not at all 5. Poor appetite or overeating: not at all 6. Feeling bad about yourself - or that you are a failure or have let yourself or your family down: not at all 7. Trouble concentrating on things, such as reading the newspaper or watching television: not at all 8. Moving or speaking so slowly that other people could have noticed. Or the opposite - being so fidgety or restless that you have been moving around a lot more than usual: not at all 9. Thoughts that you would be better off or of hurting yourself in some way: not at all Total score: 3 Depression Screening Interpretation: Negative Depression Screening Done: Yes 45865 - PHQ-9 Billing: Yes Source: Developed by Drs. Jem Quintero, Candi Felix, Jose Guadalupe Espinosa and colleagues, with an educational conchita from [employer]. Thrive Questionnaire Date Thrive assessed: 06/25/24 I am a: Patient What is your living situation today?: I have a steady place to live Within the past 12 months, did the food you bought not last and you didn't have the money to get more?: Never true Within the past 12 months, did you worry whether your food would run out before you got money to buy more?: Never true Do you have trouble paying for medicines?: No Do you have trouble getting transportation to medical appointments?: No Do you have trouble paying your heating and electricity bill?: No Do you have trouble taking care of your child, family member or friend?: No Do you have trouble with day-to-day activities such as bathing, preparing meals, shopping, managing finances, etc.?: No Are you currently unemployed and looking for a job?: No Are you interested in more education?: No Please select the resources that you would like help with: None Currently or been in a relationship where the following occur: No concerns reported THRIVE Score: 0 AUDIT C Alcohol Use Questionnaire (AUDIT-C) 1. How often do you have a drink containing alcohol?: Monthly or less 2. How many drinks containing alcohol do you have on a typical day when you are drinking?: 1 or 2 3. How often do you have six or more drinks on one occasion?: Never Total Score: 1 Score Reviewed/Action Taken: Yes JESSICA-7 AMB Questionnaire JESSICA-7 Date JESSICA - 7 assessed: 06/25/24 Feeling nervous, anxious, or on edge: 0 = Not at all Not being able to stop or control worryin = Not at all Worrying too much about different things: 0 = Not at all Trouble relaxin = Not at all Being so restless that it is hard to sit still: 0 = Not at all Becoming easily annoyed or irritable: 0 = Not at all Feeling afraid as if something awful might happen: 0 = Not at all Total JESSICA-7 score (0-4 normal; 5-9 mild; 10-14 moderate; 15-21 severe): 0 Source: Developed by Drs. Jem Quintero, Candi Felix, Jose Guadalupe Espinosa and colleagues, with an educational conchita from [employer]. JESSICA-7 Assessment Billing JESSICA-7 Assessment Tool: JESSICA-7 Assessment 25011 Review of Systems Const Denies chills and Denies fever(s) ENT Denies epistaxis and Denies nasal discharge Card Denies chest pain Resp Denies chest congestion, Denies cough and Denies hemoptysis GI Denies diarrhea and Denies nausea Skin/Breast Denies rash Neuro Reports no additional complaints Psych Reports no additional complaints Endo Reports no additional complaints Physical exam (Primary Care) Vital Signs: Last Vital Signs Pulse 107 H 06/25/24 15:30 BP 142/98 H 06/25/24 15:30 Pulse Ox 97 06/25/24 15:30 Oxygen Delivery Method Room Air 06/25/24 15:30 BMI result Body Mass Index 42.2 Tobacco/Smoking Status: Tobacco use Status Tobacco use date assessed 06/25/24 06/25/24 15:38 Patient Tobacco Use Status Former Tobacco user 06/25/24 15:31 e-Cigarette/Vaping Use Never Used 06/25/24 15:31 PHQ-9: PHQ-9 Score PHQ-9: Total score 3 06/25/24 15:39 Depression Screening Interpretation: Negative Thrive Assessment: Date of Thrive Assessment Date Thrive assessed 06/25/24 06/25/24 15:39 Currently or been in a relationship where the following occur: No concerns reported Const General: cooperative, comfortable and no acute distress Orientation/consciousness: patient oriented x3 HENMT Head: Yes normocephalic Eyes General: appearance normal, both eyes and all related structures Neck Neck: Yes supple Resp Effort & Inspection: normal respiratory effort, no cough and no stridor Cardio Rhythm: regular rhythm Heart sounds: S1 normal heart sound present and S2 normal heart sound present Skin General skin exam: turgor normal Neuro General: patient oriented x3, tone normal and moves all extremities Assessment and Plan Assessment & Plan (1) Spinal stenosis: Code(s): M48.00 - Spinal stenosis, site unspecified Qualifiers: Spinal region: lumbar Neurogenic claudication status: with neurogenic claudication Qualified Code(s): M48.062 - Spinal stenosis, lumbar region with neurogenic claudication (2) Morbid obesity due to excess calories: Code(s): E66.01 - Morbid (severe) obesity due to excess calories (3) Narcotic dependence: Code(s): F11.20 - Opioid dependence, uncomplicated (4) Pain management: Code(s): R52 - Pain, unspecified (5) Tendinopathy of right rotator cuff: Code(s): M67.911 - Unspecified disorder of synovium and tendon, right shoulder Plan Patient is 64-year-old female came in today for her monthly pain management visit She is also on Wegovy injection 0.25 mg Patient has only lost 4 lb since March I am increasing the dose to 0.5 mg She is tolerating medication no side effects Her oxycodone script filled She is currently having flare-up of her rotator cuff inflammation right side Patient is established with orthopedic for that. Follow-up 4 weeks Medications: Changed From Wegovy (semaglutide (weight loss)) administer weeks 1 through 4 of therapy 0.25 mg (0.5 mL) subcut QWEEK 2 mL 1RF NS To semaglutide (weight loss) administer weeks 1 through 4 of therapy 0.5 mg (0.5 mL) subcut QWEEK 2 mL 2RF Refilled oxycodone ok to fill early this month as patient is going on vacation 10 mg PO TID 30 days PRN 90 tabs 0RF pain F11.20 - Opioid dependence, uncomplicated, M17.10 - Unilateral primary osteoarthritis, unspecified knee, M48.00 - Spinal stenosis, site unspecified, R52 - Pain, unspecified Coding Level of Care Code Est Pt Level 3 (80815) Complex EM visit Add On G2211 Diagnoses Spinal stenosis of lumbar region with neurogenic claudication M48.062 Spinal region: lumbar Neurogenic claudication status: with neurogenic claudication Morbid obesity due to excess calories E66.01 Narcotic dependence F11.20 Pain management R52 Tendinopathy of right rotator cuff M67.911 Additional Codes JESSICA-7 Assessment Billing - JESSICA-7 Assessment Tool: JESSICA-7 Assessment 33990 ([id number])
== END 2024-06-25 16:30 | disposition home or self-care (01) ==
PROVIDERS: PCP Internal Medicine; Visit Provider Internal Medicine
DX: M48.062 Spinal stenosis, lumbar region with neurogenic claudication (principal); E66.01 Morbid (severe) obesity due to excess calories; F11.20 Opioid dependence, uncomplicated; Z68.41 Body mass index [BMI] 40.0-44.9, adult; R52 Pain, unspecified; M67.911 Unspecified disorder of synovium and tendon, right shoulder
CPT/HCPCS: 99213

== ENCOUNTER → 2024-07-31 16:26 | Outpatient (BNVA) | payer BC, SELFPAY | PROVIDERS: PCP Internal Medicine; Visit Provider Internal Medicine ==

== ENCOUNTER → 2024-08-07 08:24 | Outpatient (BNVA) | payer BC, SELFPAY | PROVIDERS: PCP Internal Medicine; Visit Provider Internal Medicine ==

== ENCOUNTER 2024-08-21 08:32 | Outpatient (AMB) | payer BC, SELFPAY ==
--- NOTE | 2024-08-21 08:47 | A.OFFPC_ITS ---
Intake Visit Reasons: Pain Med Refill Allergies Sulfa (Sulfonamide Antibiotics) [SULFA (SULFONAMIDE ANTIBIOTICS)] Allergy (In termediate, Verified 08/21/24 08:47) HIVES, unknown-childhood amoxicillin [Augmentin] Allergy (Unknown, Verified 08/21/24 08:47) rash, itching clavulanic acid [Augmentin] Allergy (Unknown, Verified 08/21/24 08:47) rash, itching gabapentin Adverse Reaction (Unknown, Verified 08/21/24 08:47) N/V Fentanyl Patch Adverse Reaction (Unknown, Uncoded 04/02/24 14:37) skin irritation Medication List - Last Reconciled 08/21/24 by Carlyn Reddy MD carisoprodol (Soma) 350 mg PO BEDTIME PRN 30 days lidocaine 5% 1 patch topical DAILY 30 days nystatin (Nystop) 1 appl topical BID 30 days oxycodone 10 mg PO TID PRN 30 days semaglutide (weight loss) 0.5 mg (0.5 mL) subcut QWEEK triamcinolone acetonide 0.1% 1 appl topical BID 90 days Tobacco use date assessed: 08/21/24 Fall risk assessment: No Falls in past year Last assessed Fall Risk: 08/21/24 Dental Screening Dental Screen Date: 08/21/24 Did you have a dental visit in the last 12 months?: Yes Did you have a dental problem in the last 6 months where you did not have access to dental care?: No Was dental information given to patient?: Patient has dentist HPI Pain Med Refill HPI Details Patient is 64-year-old female this is a telemedicine visit For weight loss medication and medication refill for pain Patient is on semaglutide injections Currently she is on 0.5 mg injection, her weight today is 221 lb She suffers from lumbar spinal stenosis and is taking oxycodone 10 mg t.i.d. along with Soma Patient is complying with the treatment plan no signs of abuse Medication refills sent [facility] Medical History Gout Obesity Pain management Exposure to COVID-19 virus Severe acute respiratory syndrome coronavirus 2 (SARS-CoV-2) detected Earache, left Abdominal mass Encounter for general adult medical examination with abnormal findings Breast screening Routine gynecological examination Chronic nasal congestion Eustachian tube disorder Right knee pain Encounter for annual routine gynecological examination Upper respiratory tract infection Otitis media of left ear URI with cough and congestion Upper respiratory tract infection Immunizations incomplete Abnormal TSH Blocked ear Rotator cuff tear arthropathy of right shoulder Spasm of left trapezius muscle Eardrum rupture, bilateral Colon cancer screening Narcotic dependence Eczema Spinal stenosis Surgical History History of surgery History of colonoscopy History of section Family History Father Cancer COPD (chronic obstructive pulmonary disease) Mother Arthritis Maternal Grandfather Diabetes mellitus Maternal Grandmother Emphysema lung Paternal Grandfather No problems noted. Paternal Grandmother No problems noted. Brother No problems noted. Brother No problems noted. Brother No problems noted. Sister No problems noted. Sister No problems noted. Son No problems noted. Daughter No problems noted. 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 How often do you have a drink containing alcohol?: Monthly or less 2. How many drinks containing alcohol do you have on a typical day when you are drinking?: 1 or 2 3. How often do you have six or more drinks on one occasion?: Never Total Score: 1 Score Reviewed/Action Taken: Yes JESSICA-7 AMB Questionnaire JESSICA-7 Date JESSICA - 7 assessed: 06/25/24 Source: Developed by Drs. Jem Quintero, Canid Felix, Jose Guadalupe Espinosa and colleagues, with an educational conchita from [employer]. Review of Systems Const Denies chills and Denies fever(s) ENT Denies epistaxis and Denies nasal discharge Card Denies chest pain Resp Denies hemoptysis GI Denies diarrhea and Denies nausea Skin/Breast Denies rash Neuro Reports no additional complaints Psych Reports no additional complaints Endo Reports no additional complaints Physical exam (Primary Care) Tobacco/Smoking Status: Tobacco use Status Tobacco use date assessed 08/21/24 08/21/24 08:51 Patient Tobacco Use Status Former Tobacco user 08/21/24 08:51 e-Cigarette/Vaping Use Never Used 08/21/24 08:51 Thrive Assessment: Date of Thrive Assessment Date Thrive assessed 06/25/24 08/21/24 08:51 Telehealth Telehealth Telehealth Platform: Cue Location of provider rendering services: practice address Location of patient: address on file Patient Identification confirmed using: Name, : Yes Telehealth method: video Patient verbally consented to treatment: Yes Patient verbally consented to billing insurance company: Yes Patient informed of any privacy concerns related to visit: Yes Minutes spent on Phone/Video with Pt.: 13 Coding Level of Care Code Tele Est Pt Level 3 (33763) Diagnoses Spinal stenosis of lumbar region with neurogenic claudication M48.062 Spinal region: lumbar Neurogenic claudication status: with neurogenic claudication Narcotic dependence F11.20 Morbid obesity due to excess calories E66.01 Assessment & Plan Assessment & Plan (1) Spinal stenosis: Code(s): M48.00 - Spinal stenosis, site unspecified Category: Medical Qualifiers: Spinal region: lumbar Neurogenic claudication status: with neurogenic claudication Qualified Code(s): M48.062 - Spinal stenosis, lumbar region with neurogenic claudication (2) Narcotic dependence: Comment: ON OXYCODONE AND SOMA Code(s): F11.20 - Opioid dependence, uncomplicated Category: Medical (3) Morbid obesity due to excess calories: Code(s): E66.01 - Morbid (severe) obesity due to excess calories Category: Medical Plan Patient is 64-year-old female this is a telemedicine visit For weight loss medication and medication refill for pain Patient is on semaglutide injections Currently she is on 0.5 mg injection, her weight today is 221 lb She suffers from lumbar spinal stenosis and is taking oxycodone 10 mg t.i.d. along with Soma Patient is complying with the treatment plan no signs of abuse Medication refills sent Medications: Refilled oxycodone ok to fill early this month as patient is going on vacation 10 mg PO TID PRN 90 tabs 0RF pain 30 days F11.20 - Opioid dependence, uncomplicated, M17.10 - Unilateral primary osteoarthritis, unspecified knee, M48.00 - Spinal stenosis, site unspecified, R52 - Pain, unspecified carisoprodol (Soma) 350 mg PO BEDTIME PRN 30 tabs 0RF muscle pain 30 days M48.00 - Spinal stenosis, site unspecified
== END 2024-08-21 12:06 | disposition home or self-care (01) ==
LOC: HO.HMCC 08:32
PROVIDERS: PCP Internal Medicine; Visit Provider Internal Medicine
DX: M48.062 Spinal stenosis, lumbar region with neurogenic claudication (principal); F11.20 Opioid dependence, uncomplicated; E66.01 Morbid (severe) obesity due to excess calories

== ENCOUNTER 2024-09-17 10:09 | Outpatient (AMB) | payer BC, SELFPAY ==
[2024-09-17 10:11] VITALS: BP 152/88; PULSE 100; O2SAT 99; BMI 39.2
--- NOTE | 2024-09-17 10:11 | MHC.PC.OV ---
Vital Signs 09/17/24 10:11 Height 5 ft 2 in Weight 214 lb 2 oz BMI 39.2 BP 152/88 H Blood Pressure Location Rt brachial Position Sitting Pulse 100 Pulse Source Pulse Oximeter Pulse Oximetry (%) 99 Oxygen Delivery Method Room Air Intake Visit Reasons: Med Follow Up Allergies Sulfa (Sulfonamide Antibiotics) [SULFA (SULFONAMIDE ANTIBIOTICS)] Allergy (Intermediate, Verified 08/21/24 08:47) HIVES, unknown-childhood amoxicillin [Augmentin] Allergy (Unknown, Verified 08/21/24 08:47) rash, itching clavulanic acid [Augmentin] Allergy (Unknown, Verified 08/21/24 08:47) rash, itching gabapentin Adverse Reaction (Unknown, Verified 08/21/24 08:47) N/V Fentanyl Patch Adverse Reaction (Unknown, Uncoded 04/02/24 14:37) skin irritation Medication List - Last Reconciled 09/17/24 by Carlyn Reddy MD carisoprodol (Soma) 350 mg PO BEDTIME PRN 30 days lidocaine 5% 1 patch topical DAILY 30 days nystatin (Nystop) 1 appl topical BID 30 days oxycodone 10 mg PO TID PRN 30 days prednisone 10 mg PO DAILY 7 days semaglutide (weight loss) 0.5 mg (0.5 mL) subcut QWEEK triamcinolone acetonide 0.1% 1 appl topical BID 90 days Tobacco use date assessed: 08/21/24 Dental Screening Dental Screen Date: 08/21/24 HPI Med Follow Up HPI Details Chief Complaint Persistent coughing with phlegm. Assessment and Plan 64-year-old female with a history of lumbar spinal stenosis and obesity presenting with persistent coughing and possible pneumonia. Recent chest x-ray indicated a patchy airspace opacity in the lateral left lung base, suggestive of developing pneumonia. Previous tests confirmed negative for whooping cough, influenza, and COVID-19. Patient reported generalized bone pain. Blood pressure noted to be elevated at 152/88 mmHg during this visit. She has been on semaglutide for weight loss, resulting in a weight reduction from 231 lbs to 214 lbs since June. The plan includes continued monitoring and repeat chest x-ray for resolution of pneumonia, blood pressure management, and reevaluation of weight management and potential side effects of ongoing medication. 1. Back Pain The patient reported generalized and increased musculoskeletal pain possibly exacerbated by coughing and weight-bearing activities. Prednisone seemed to alleviate some pain. Recommendations include physical activity adjustments to mitigate pain and follow-up to reassess pain management strategies. 2. Lumbar Spinal Stenosis Chronic back pain related to lumbar spinal stenosis was noted. Regular medication, including oxycodone for pain management, was reviewed for ongoing use. The discussion included the importance of adherence to medication and awareness of potential side effects. 3. Essential Hypertension The patient's blood pressure was elevated at 152/88 mmHg during the visit, likely related to stress. Reinforcement of lifestyle modifications recommended, and a review of existing antihypertensive therapy is necessary. Continued monitoring of blood pressure is essential to ensure stabilization. 4-continue semaglutide, patient is tolerating medication no side effects 5-eczema stable Problem List - Bacterial Pneumonia - Essential Hypertension - Lumbar Spinal Stenosis - Obesity - Back Pain - eczema Patient Instructions - Complete the prescribed prednisone course and monitor for symptom improvement. - Schedule a blood pressure check and adhere to lifestyle modifications to manage hypertension. - Continue using prescribed medications for lumbar spinal stenosis and adhere to pain management strategies. - Persist with the weight management program and report any adverse effects from semaglutide to the clinic. - Undergo blood tests for monitoring pancreas and thyroid functions as directed. - Return to the clinic for follow-up evaluation and repeat chest x-ray as scheduled. - Contact the clinic if respiratory symptoms worsen or if experiencing any side effects from prescribed treatments. [facility] Medical History Gout Obesity Pain management Exposure to COVID-19 virus Severe acute respiratory syndrome coronavirus 2 (SARS-CoV-2) detected Earache, left Abdominal mass Encounter for general adult medical examination with abnormal findings Breast screening Routine gynecological examination Chronic nasal congestion Eustachian tube disorder Right knee pain Encounter for annual routine gynecological examination Upper respiratory tract infection Otitis media of left ear URI with cough and congestion Upper respiratory tract infection Immunizations incomplete Abnormal TSH Blocked ear Rotator cuff tear arthropathy of right shoulder Spasm of left trapezius muscle Eardrum rupture, bilateral Colon cancer screening Narcotic dependence Eczema Spinal stenosis Surgical History History of surgery History of colonoscopy History of section Family History Father Cancer COPD (chronic obstructive pulmonary disease) Mother Arthritis Maternal Grandfather Diabetes mellitus Maternal Grandmother Emphysema lung Paternal Grandfather No problems noted. Paternal Grandmother No problems noted. Brother No problems noted. Brother No problems noted. Brother No problems noted. Sister No problems noted. Sister No problems noted. Son No problems noted. Daughter No problems noted. 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 Sexual orientation: Straight/Heterosexual Gender identity: Female Cognitive needs: No Hearing needs: No Vision needs: Yes Questionnaire Thrive Questionnaire Date Thrive assessed: 06/18/24 I am a: Patient What is your living situation today?: I have a steady place to live Within the past 12 months, did the food you bought not last and you didn't have the money to get more?: Never true Within the past 12 months, did you worry whether your food would run out before you got money to buy more?: Never true Do you have trouble paying for medicines?: No Do you have trouble getting transportation to medical appointments?: No Do you have trouble paying your heating and electricity bill?: No Do you have trouble taking care of your child, family member or friend?: No Do you have trouble with day-to-day activities such as bathing, preparing meals, shopping, managing finances, etc.?: No Are you currently unemployed and looking for a job?: No Are you interested in more education?: No Please select the resources that you would like help with: None Currently or been in a relationship where the following occur: No concerns reported THRIVE Score: 0 JESSICA-7 AMB Questionnaire JESSICA-7 Date JESSICA - 7 assessed: 06/25/24 Source: Developed by Drs. Jem Quintero, Candi Felix, Jose Guadalupe Espinosa and colleagues, with an educational conchita from [employer]. Review of Systems Const Denies chills and Denies fever(s) ENT Denies epistaxis and Denies nasal discharge Resp Denies hemoptysis GI Denies diarrhea and Denies nausea Skin/Breast Denies rash Neuro Reports no additional complaints Psych Reports no additional complaints Endo Reports no additional complaints Physical exam (Primary Care) Vital Signs: Last Vital Signs Pulse 100 09/17/24 10:11 BP 152/88 H 09/17/24 10:11 Pulse Ox 99 09/17/24 10:11 Oxygen Delivery Method Room Air 09/17/24 10:11 BMI result Body Mass Index 39.2 Tobacco/Smoking Status: Tobacco use Status Tobacco use date assessed 08/21/24 09/17/24 10:16 Patient Tobacco Use Status Former Tobacco user 09/17/24 10:16 e-Cigarette/Vaping Use Never Used 09/17/24 10:16 Thrive Assessment: Date of Thrive Assessment Date Thrive assessed 06/18/24 09/17/24 10:16 Currently or been in a relationship where the following occur: No concerns reported Const General: cooperative, comfortable and no acute distress Orientation/consciousness: patient oriented x3 HENMT Head: Yes normocephalic Eyes General: appearance normal, both eyes and all related structures Neck Neck: Yes supple Resp Other: Rhonchi bilateral basal moves with coughing more so left Effort & Inspection: normal respiratory effort and no stridor Cardio Rhythm: regular rhythm Heart sounds: S1 normal heart sound present and S2 normal heart sound present Skin General skin exam: turgor normal Neuro General: patient oriented x3, tone normal and moves all extremities Extrem Right lower extremity: no edema Left lower extremity: no edema Coding Level of Care Code Est Pt Level 4 (61905) Diagnoses Pneumonia of left lung due to infectious organism, unspecified part of lung J18.9 Pneumonia type: due to unspecified organism Laterality: left Lung location: unspecified part of lung Spinal stenosis of lumbar region with neurogenic claudication M48.062 Spinal region: lumbar Neurogenic claudication status: with neurogenic claudication Flexural eczema L20.82 Eczema type: flexural Narcotic dependence F11.20 Primary osteoarthritis of both knees M17.0 Osteoarthritis type: primary Laterality: bilateral Environmental allergies Z91.09 Fatty liver K76.0 Morbid obesity due to excess calories E66.01 Assessment & Plan Assessment & Plan (1) Pneumonia: Code(s): J18.9 - Pneumonia, unspecified organism Category: Medical Qualifiers: Pneumonia type: due to unspecified organism Laterality: left Lung location: unspecified part of lung Qualified Code(s): J18.9 - Pneumonia, unspecified organism (2) Spinal stenosis: Code(s): M48.00 - Spinal stenosis, site unspecified Category: Medical Qualifiers: Spinal region: lumbar Neurogenic claudication status: with neurogenic claudication Qualified Code(s): M48.062 - Spinal stenosis, lumbar region with neurogenic claudication (3) Eczema: Code(s): L30.9 - Dermatitis, unspecified Category: Medical Qualifiers: Eczema type: flexural Qualified Code(s): L20.82 - Flexural eczema (4) Narcotic dependence: Comment: ON OXYCODONE AND SOMA Code(s): F11.20 - Opioid dependence, uncomplicated Category: Medical (5) Osteoarthritis, knee: Code(s): M17.10 - Unilateral primary osteoarthritis, unspecified knee Category: Medical Qualifiers: Osteoarthritis type: primary Laterality: bilateral Qualified Code(s): M17.0 - Bilateral primary osteoarthritis of knee (6) Environmental allergies: Code(s): Z91.09 - Other allergy status, other than to drugs and biological substances Category: Medical (7) Fatty liver: Code(s): K76.0 - Fatty (change of) liver, not elsewhere classified Category: Medical (8) Morbid obesity due to excess calories: Code(s): E66.01 - Morbid (severe) obesity due to excess calories Category: Medical Plan Chief Complaint Persistent coughing with phlegm. Refill on narcotic medication for spinal stenosis Assessment and Plan 64-year-old female with a history of lumbar spinal stenosis and obesity presenting with persistent coughing and possible pneumonia. Recent chest x-ray indicated a patchy airspace opacity in the lateral left lung base, suggestive of developing pneumonia. Previous tests confirmed negative for whooping cough, influenza, and COVID-19. Patient reported generalized bone pain. Blood pressure noted to be elevated at 152/88 mmHg during this visit. She has been on semaglutide for weight loss, resulting in a weight reduction from 231 lbs to 214 lbs since June. The plan includes continued monitoring and repeat chest x-ray for resolution of pneumonia, blood pressure management, and reevaluation of weight management and potential side effects of ongoing medication. 1. Back Pain The patient reported generalized and increased musculoskeletal pain possibly exacerbated by coughing and weight-bearing activities. Prednisone seemed to alleviate some pain. Recommendations include physical activity adjustments to mitigate pain and follow-up to reassess pain management strategies. 2. Lumbar Spinal Stenosis Chronic back pain related to lumbar spinal stenosis was noted. Regular medication, including oxycodone for pain management, was reviewed for ongoing use. The discussion included the importance of adherence to medication and awareness of potential side effects. 3. Essential Hypertension The patient's blood pressure was elevated at 152/88 mmHg during the visit, likely related to stress. Reinforcement of lifestyle modifications recommended, and a review of existing antihypertensive therapy is necessary. Continued monitoring of blood pressure is essential to ensure stabilization. 4-continue semaglutide, patient is tolerating medication no side effects 5-eczema stable Problem List - Bacterial Pneumonia - Essential Hypertension - Lumbar Spinal Stenosis - Obesity - Back Pain - eczema Patient Instructions - Complete the prescribed prednisone course and monitor for symptom improvement. - Schedule a blood pressure check and adhere to lifestyle modifications to manage hypertension. - Continue using prescribed medications for lumbar spinal stenosis and adhere to pain management strategies. - Persist with the weight management program and report any adverse effects from semaglutide to the clinic. - Undergo blood tests for monitoring pancreas and thyroid functions as directed. - Return to the clinic for follow-up evaluation and repeat chest x-ray as scheduled. - Contact the clinic if respiratory symptoms worsen or if experiencing any side effects from prescribed treatments. Orders: Orders Complete Blood Count Auto Diff Today E66.01 - Morbid (severe) obesity due to excess calories, F11.20 - Opioid dependence, uncomplicated, J18.9 - Pneumonia, unspecified organism, K76.0 - Fatty (change of) liver, not elsewhere classified, L20.82 - Flexural eczema, M17.0 - Bilateral primary osteoarthritis of knee, M48.062 - Spinal stenosis, lumbar region with neurogenic claudication, Z91.09 - Other allergy status, other than to drugs and biological substances Comprehensive Met. Panel Today E66.01 - Morbid (severe) obesity due to excess calories, F11.20 - Opioid dependence, uncomplicated, J18.9 - Pneumonia, unspecified organism, K76.0 - Fatty (change of) liver, not elsewhere classified, L20.82 - Flexural eczema, M17.0 - Bilateral primary osteoarthritis of knee, M48.062 - Spinal stenosis, lumbar region with neurogenic claudication, Z91.09 - Other allergy status, other than to drugs and biological substances XR chest 2V 3 Weeks J18.9 - Pneumonia, unspecified organism Hemoglobin A1c Today E66.01 - Morbid (severe) obesity due to excess calories, F11.20 - Opioid dependence, uncomplicated, J18.9 - Pneumonia, unspecified organism, K76.0 - Fatty (change of) liver, not elsewhere classified, L20.82 - Flexural eczema, M17.0 - Bilateral primary osteoarthritis of knee, M48.062 - Spinal stenosis, lumbar region with neurogenic claudication, Z91.09 - Other allergy status, other than to drugs and biological substances TSH reflex Free T4 Today E66.01 - Morbid (severe) obesity due to excess calories, F11.20 - Opioid dependence, uncomplicated, J18.9 - Pneumonia, unspecified organism, K76.0 - Fatty (change of) liver, not elsewhere classified, L20.82 - Flexural eczema, M17.0 - Bilateral primary osteoarthritis of knee, M48.062 - Spinal stenosis, lumbar region with neurogenic claudication, Z91.09 - Other allergy status, other than to drugs and biological substances Lipase Today E66.01 - Morbid (severe) obesity due to excess calories, F11.20 - Opioid dependence, uncomplicated, J18.9 - Pneumonia, unspecified organism, K76.0 - Fatty (change of) liver, not elsewhere classified, L20.82 - Flexural eczema, M17.0 - Bilateral primary osteoarthritis of knee, M48.062 - Spinal stenosis, lumbar region with neurogenic claudication, Z91.09 - Other allergy status, other than to drugs and biological substances Amylase Today E66.01 - Morbid (severe) obesity due to excess calories, F11.20 - Opioid dependence, uncomplicated, J18.9 - Pneumonia, unspecified organism, K76.0 - Fatty (change of) liver, not elsewhere classified, L20.82 - Flexural eczema, M17.0 - Bilateral primary osteoarthritis of knee, M48.062 - Spinal stenosis, lumbar region with neurogenic claudication, Z91.09 - Other allergy status, other than to drugs and biological substances Medications: New prednisone 10 mg PO DAILY 7 days 7 tabs 0RF Refilled carisoprodol (Soma) 350 mg PO BEDTIME 30 days PRN 30 tabs 0RF muscle pain M48.00 - Spinal stenosis, site unspecified oxycodone ok to fill early this month as patient is going on vacation 10 mg PO TID 30 days PRN 90 tabs 0RF pain F11.20 - Opioid dependence, uncomplicated, M17.10 - Unilateral primary osteoarthritis, unspecified knee, M48.00 - Spinal stenosis, site unspecified, R52 - Pain, unspecified
--- OUTSIDE RECORDS SUMMARY | 2024-09-23 17:27 | XMS_ITS | Data Portability ---
Author Organization [facility], [facility] Address [address] [place] [address] Care Team Providers Care Helper Coordinator Name Role Phone MAN JIN Primary Care Provider [phone] Assessment No assessment recorded. Plan of Treatment Reminders Order Date Submit Date Provider Last Modified By Organization Details Last Modified Time Details Appointments None recorded. Lab None recorded. Referral None recorded. Procedures None recorded. Surgeries None recorded. Imaging XR, cervical spine, 2 or 3 view - 221 2023 024 [email or web address] Not available 10:42:49 Medication Orders Medrol (Connor) 4 mg tablets in a dose pack 2023 024 [id number], [address], [place], [phone], 18:18:09 Patient TargetsNo targets recorded. Patient InstructionsNo instructions recorded. Reason for Referral None Reported. Results Created Date Observation Date Name Description Value Unit Range Abnormal Flag Note LastModifiedBy Organization Detail LastModifiedTime 06/13/20 24 12/10/2023 imagi ng/di agnos tic resul t No observ ation record ed. [email or web address] Not Available 05/17 22:11:28 06/13/20 24 12/13/2023 imagi ng/di agnos tic resul t No observ ation record ed. [email or web address] Not Available 05/17 22:11:29 Result Notes None recorded. Problems Name Problem SNOMED Code Status Onset Date Resolution Date Notes Provider Name and Address Organization Details Recorded Time No complaints 159359788 Active Status : 'I'; Not Available formerly [facility] 4 09:11:26 Osteoarthr itis of joint of right shoulder region 8063859948982 00 Active 2023 Annette Lin PA-C [address], [place], [address] , [facility] 4 08:31:04 Cervical radiculopa thy 54943935 Active 2023 Jeff Zepeda PA-C [address], [place], [address] , [facility] 4 16:13:57 Degenerati ve joint disease of shoulder region 83205924 Active 2023 Jeff Zepeda PA-C [address], [place], [address] , [facility] 4 16:19:49 Problem Notes None recorded. Procedures Surgical History Date Name Laterality Status Provider Name and Address Organization Details Recorded Time 4 Sports Shoulder completed Annette Lin PA-C [address], [place], [address], [facility] 04/25/2024 08:30:58 4 Orthopedic Surgery completed KAYLIA L'HEUREUX [facility] 04/25/2024 09:16:38 Imaging Results Imaging Date Name Status LastModified by Organiz ation Details LastModified Time 12/10/2023 imaging/diag nostic result completed Information not available 06/13/2024 22:11:28 12/13/2023 imaging/diag nostic result completed Information not available 06/13/2024 22:11:29 Procedure Notes None recorded. Medical Equipment None Reported. Allergies Allergen ID Allergen Name Allergen Category Reaction Reaction Severity Criticality Documentation Date Start Date Code Code System Note Provider Name and Address Organization Details Recorded Time 488587 Substance with sulfonami de structure and antibacte rial mechanism of action (substanc e) medicatio n Not available Not available Not available 01/21/2024 80072 8003 SNOMED Jeff Zepeda PA-C [address], [place], [address], [facility] [place] [facility] 15:51:38 Medications Name Sig Start Date Stop Date Status Note LastModified by Organization Details LastModified Time carisoprodo l 350 mg tablet TAKE 1 TABLET BY MOUTH AT BEDTIME NEEDED FOR MUSCLE PAIN active Not Available Not Available No t Available prednisone 10 mg tablet TAKE 1 TABLET BY MOUTH DAILY FOR 5 DAYS 04/21 completed Not Available Not Available Not Available azithromyci n 250 mg tablet TAKE 2 TABLET BY MOUTH TODAY THEN 1 TABLET DAILY FOR 5 DAYS 04/21 completed Not Available Not Available Not Available Nystop 100,000 unit/gram topical powder APPLY TOPICALLY TWICE DAILY active Not Available Not Available No t Available triamcinolo ne acetonide 0.1 % topical ointment APPLY TOPICALLY TO THE AFFECTED AREA TWICE DAILY active Not Available Not Available No t Available lidocaine 5 % topical patch APPLY 1 PATCH TOPICALLY TO THE SKIN DAILY active Not Available Not Available No t Available montelukast 10 mg tablet TAKE 1 TABLET BY MOUTH DAILY 04/21 completed Not Available Not Available Not Available methylpredn isolone 4 mg tablets in a dose pack FOLLOW PACKAGE DIRECTION S 04/21 completed Not Available Not Available Not Available naproxen 500 mg tablet TAKE 1 TABLET BY MOUTH TWICE DAILY active Not Available Not Available No t Available oxycodone 10 mg tablet TAKE 1 TABLET BY MOUTH THREE TIMES DAILY NEEDED FOR PAIN active Not Available Not Available No t Available Wegovy 0.25 mg/0.5 mL subcutaneou s pen injector INJECT 0.2 UNITS SUBCUTANE OUSLY EVERY WEEK active Not Available Not Available No t Available Wegovy 0.5 mg/0.5 mL subcutaneou s pen injector INJECT 0.5 MG UNDER SKIN EVERY WEEK active Not Available Not Available No t Available Vitals Date Recorded Body height Body mass index (BMI) Body weight Provider Name and Address Organization Details Last Updated DateTime 01/21/2024 157.48 cm 43.9 kg/m2 087257.17 g Jeff Zepeda PA-C [address], [place], [address], [place] [facility] [place] [facility] 01/21/2024 15:51:14 Date Recorded Body height Body mass index (BMI) Body weight Provider Name and Address Organization Details Last Updated DateTime 04/25/2024 157.48 cm 43.9 kg/m2 973095.17 g DANIE MAYFIELD [facility] 04/25/2024 09:16:47 Social History Question Answer Notes LastModified by Organizat ion Details LastModified Time Tobacco Smoking Status Former Smoker DANIE ROSEDanielle hylton, [facility] 04/25/2024 09:17:44 What Is Your Level Of Alcohol Consumption? Occasional Information not available 04/25/2024 How Many Times Per Week Do You Consume Alcohol? 1-2 Times Per Week Information not available 04/25/2024 When Did You Quit Smoking? 1-5yearssincel astcigarette Information not available 04/25/2024 Which Of Your Hands Is Dominant? Right Information not available 04/25/2024 Have You Ever Been Counseled For Unhealthy Alcohol Use? No Information not available 04/25/2024 Do You Use Any Illicit Or Recreational Drugs? No Information not available 04/25/2024 Do You Or Have You Ever Used Any Other Forms Of Tobacco Or Nicotine? No Information not available 04/25/2024 Sex: Unknown Functional Status None recorded. Mental Status None recorded. Family History Nothing Reported. Medical History Condition Response Arthritis Y Gynecological HistoryNo gynecological history recorded. Obstetrics History GPAL:G 0 P 0 0 0 0 Past Encounters Encounter ID Performer Location Encounter Start Date Encounter Closed Date Diagnosis/Indication Diagnosis SNOMED-CT Code Diagnosis ICD10 Code [id number] [facility] [address] [place] [address] 01/21/2024 15:43:27 02/01/2024 10:42:49 Cervical radiculopathy 08702672 M54.12 Degenerati ve joint disease of shoulder region 42577539 M19.379 [id number] [facility] [address] [place] [address] 04/25/2024 08:55:33 05/13/2024 13:50:08 Osteoarthritis of joint of right shoulder region 3016353231 09516 M19.011 Health Concerns Section Related Observation LastModified by Organization Yodit ls LastModified Time None Recorded Concern Status LastModified by Organization Details LastModified Time None Recorded Advance Directives Directive None Recorded Payers Encounter Date Sequence Insurance Name Policy Number Policy Rojo Covered Member ID Rojo Member ID Guarantor Name 01/21/2024 1 [facility] [place] [place] [id number] Maria Ines Kenney [id number] Maria Ines Kenney 04/25/2024 1 [facility] [place] [id number] Xavier Moulton [id number] Maria Ines Moulton Notes Date Note Type Note Provider Name and Address Organization Details Recorded Time 01/21/2024 text/html I am seeing the patient today under the supervision of Dr. Santana who was available but who did not see the patient. HPI: Patient is seen today for follow-up evaluation of their Shoulder MRI. Prior history notable for previous surgery with Dr. Dugan was evaluated by Dr. Greenfield in November treated with an injection patient had an MRI scan she comes in today to review that MRI stating she is significant improvement after injection. 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 MRI findings: Independently reviewed today of the right shoulder demonstrate advanced glenohumeral joint osteoarthritis with retroversion, marginal osteophytes, interstitial tendinopathy with degenerative rotator cuff changes. PHYSICAL EXAMINATION: The patient is well appearing and in no apparent distress. Alert and oriented x3. Gait is symmetric. Right shoulder demonstrates forward elevation to 150 degrees, external rotates 45??, internal rotates back pocket. Positive impingement arc with bursal crepitance. AC joint is palpated and moderately tender, rotator cuff strength 4/5 with horizontal elevation and external rotation. Subscapularis and belly press tests normal. Cervical range of motion restricted with irritability in the cervical outflow and tenderness to palpation along the cervical spine. 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 New x-rays ordered and reviewed today 2 views of the cervical spine show multilevel degenerative disc disease from C4-7. IMPRESSION: #1. Glenohumeral joint osteoarthritis with partial-thickness rotator cuff tear #2. Cervical spine DJD PLAN: Considering the patient is feeling better for shoulder would recommend conservative treatment, occasional cortisone injection would be potentially beneficial long-term management including potential role of shoulder arthroplasty considering the degenerative nature of the rotator cuff patient is likely best candidate for reverse total shoulder arthroplasty. Regarding the neck I recommended some physical therapy home stretching talked about potential benefits of Medrol and associated risk factors. [employer] speech recognition ob gyn physician assistant software was used to create portions of this document. An attempt at proofreading has been made to minimize errors. Please call for corrections. Jeff Zepeda PA-C [address] [place] [address], [place], [address], [facility] [place] [facility] 01/21/2024 16:39:09 04/25/2024 text/html I am seeing the patient today under the supervision of {{Tegan Andersen* Jett [employer]}} who was available but who did not see the patient. HPI: Patient comes to the office with known history of {{glenohumeral joint arthritis* subacromi al impingement}} of the {{left Right* Bilate ral}} shoulder. The patient has done well with conservative management for their shoulder pain with good clinical response to cortisone injections in the past, last injection right shoulder 2023. Reports recently increasing discomfort over the past several weeks with no new injury or trauma. Pain is generalized about the shoulder and discomfort is worst at night. PHYS EXAM:The patient is well appearing, in no apparent distress, alert and oriented to person, place and time. Gait is symmetric. No significant swelling, warmth or erythema about either shoulder.There is mild tenderness to palpation about the shoulder. Active range of motion of the shoulder is {{full restricted*}} with moderate pain through mid range manipulations. {{4/5* 5/5}} strength testing of the shoulder. Good stability of the shoulder.Peripheral, vascular, lymphatic examination, skin, neurologic coordination, reflexes, sensation are within normal limits. ASSESSMENT:Right shoulder advanced glenohumeral joint osteoarthritis with partial thickness rotator cuff tear PLAN:Reviewed definitive treatment would likely include reverse total shoulder arthroplasty.The patient has done well with conservative management in regards to the shoulder with good clinical response to injections in the past. She elected to proceed with right shoulder cortisone injection today. Moderating activities with the upper extremity recommended also. She will follow up as needed. See procedure notes for injection details. Speech recognition ob gyn physician assistant software was used to create portions of this document. An attempt at proofreading has been made to minimize errors. Please call for corrections. Annette Lin PA-C [address] [facility] [address], [place], [address], [facility] [place] [facility] 04/25/2024 12:01:12 OBGyn Episode No OBEpisode recorded.
== END 2024-09-17 10:31 | disposition home or self-care (01) ==
PROVIDERS: PCP Internal Medicine; Visit Provider Internal Medicine
DX: J18.9 Pneumonia, unspecified organism (principal); F11.20 Opioid dependence, uncomplicated; E66.01 Morbid (severe) obesity due to excess calories; Z68.39 Body mass index [BMI] 39.0-39.9, adult; M48.062 Spinal stenosis, lumbar region with neurogenic claudication; L20.82 Flexural eczema; M17.0 Bilateral primary osteoarthritis of knee; Z91.09 Other allergy status, other than to drugs and biological substances; K76.0 Fatty (change of) liver, not elsewhere classified

== ENCOUNTER → 2024-09-17 10:09 | Outpatient (BNVA) | payer BC, SELFPAY | PROVIDERS: PCP Internal Medicine; Visit Provider Internal Medicine ==

== ENCOUNTER 2024-10-14 06:11 | Outpatient (REF) | payer BC, SELFPAY ==
[2024-10-14 09:52] LABS: MANUAL DIFF FLAG NO
[2024-10-14 10:06] LABS: Basophils Percent Auto 0.7 % (0-2); Eosinophils Absolute Auto 0.1 X10*3/uL (0.0-0.4); Eosinophils Percent Auto 3.2 % (0-4); Hematocrit 38.8 % (37.0-47.0); Hemoglobin 12.8 g/dl (12.0-16.0); Imm Gran Abs Auto 0.01 X10*3/uL (0.00-0.03); Imm Gran Pct Auto 0.2 % (0.0-0.4); Lymphocytes Absolute Auto 0.9 X10*3/uL (1.2-4.9); Lymphocytes Percent Auto 21.2 % (20-40); Mean Corpuscular Hemoglobin 26.2 pg (27.0-33.0); Mean Corpuscular Volume 79.3 fL (80.0-98.0); Monocytes Absolute Auto 0.3 X10*3/uL (0.1-1.2); Monocytes Percent Auto 7.1 % (2-11); Neutrophils Absolute Auto 2.8 x10*3/uL (2.0-8.3); Neutrophils Percent Auto 67.6 % (45-73); Platelet Count 177 X10*3/uL (160-400); Red Blood Count 4.89 X10*6/uL (4.20-5.50); Red Cell Distribution Width 16.5 % (11.0-16.0); White Blood Count 4.1 X10*3/uL (4.8-10.8)
[2024-10-14 10:32] LABS: Estimated Average Glucose 111 mg/dL; Hemoglobin A1C 121.2753 umol/L; Hemoglobin A1c % 5.5 % (<6.0); Total Hemoglobin (HGBA1C) 3303.4893 umol/L
[2024-10-14 10:51] LABS: Alanine Aminotransferase 15 U/L (0-31); Alkaline Phosphatase 81 U/L (39-117); Amylase 44 U/L (28-100); Anion Gap 11 (12-20); Aspartate Amino Transferase 19 U/L (5-31); Bilirubin Total 0.4 mg/dL (0.0-1.0); Blood Urea Nitrogen 18 mg/dL (9-16); Calcium 9.5 mg/dL (8.4-10.2); Carbon Dioxide 26 mmol/L (22-29); Chloride 111 mmol/L (96-108); Estimated Glomerular Filt Rate > 60; Glucose Random 114 mg/dL (60-115); Lipase 28 U/L (8-78); Potassium 3.9 mmol/L (3.3-5.1); Sodium 144 mmol/L (135-145); Total Protein 6.7 g/dL (6.5-8.0)
[2024-10-14 10:57] LABS: TSH reflex Free T4 1.77 uIU/mL (0.32-4.0)
== END 2024-10-14 06:12 | disposition home or self-care (01) ==
LOC: HO.HMGCLDS 06:11
PROVIDERS: PCP Internal Medicine; Visit Provider Internal Medicine
DX: M48.062 Spinal stenosis, lumbar region with neurogenic claudication (principal); L20.82 Flexural eczema; F11.20 Opioid dependence, uncomplicated; M17.0 Bilateral primary osteoarthritis of knee; Z91.09 Other allergy status, other than to drugs and biological substances; K76.0 Fatty (change of) liver, not elsewhere classified; E66.01 Morbid (severe) obesity due to excess calories; J18.9 Pneumonia, unspecified organism
CPT/HCPCS: 36415; 80053; 82150; 83036; 83690; 84443; 85025

== ENCOUNTER 2024-10-17 10:40 | Outpatient (AMB) | payer BC, SELFPAY ==
[2024-10-17 10:44] VITALS: BP 136/74; BMI 38.5
--- NOTE | 2024-10-17 10:44 | MHC.PC.OV ---
Vital Signs 10/17/24 10:44 Height 5 ft 2 in Weight 210 lb 8 oz BMI 38.5 BP 136/74 Blood Pressure Location Rt brachial Position Sitting Intake Visit Reasons: Med Follow Up Allergies Sulfa (Sulfonamide Antibiotics) [SULFA (SULFONAMIDE ANTIBIOTICS)] Allergy (Intermediate, Verified 10/17/24 10:45) HIVES, unknown-childhood amoxicillin [Augmentin] Allergy (Unknown, Verified 10/17/24 10:45) rash, itching clavulanic acid [Augmentin] Allergy (Unknown, Verified 10/17/24 10:45) rash, itching gabapentin Adverse Reaction (Unknown, Verified 10/17/24 10:45) N/V Fentanyl Patch Adverse Reaction (Unknown, Uncoded 04/02/24 14:37) skin irritation Medication List - Last Reconciled 10/17/24 by Carlyn Reddy MD carisoprodol (Soma) 350 mg PO BEDTIME PRN 30 days lidocaine 5% 1 patch topical DAILY 30 days nystatin (Nystop) 1 appl topical BID 30 days oxycodone 10 mg PO TID PRN 30 days semaglutide (weight loss) 0.5 mg (0.5 mL) subcut QWEEK triamcinolone acetonide 0.1% 1 appl topical BID 90 days Tobacco use date assessed: 10/17/24 Fall risk assessment: No Falls in past year Last assessed Fall Risk: 10/17/24 Dental Screening Dental Screen Date: 10/17/24 Did you have a dental visit in the last 12 months?: Yes Did you have a dental problem in the last 6 months where you did not have access to dental care?: No Was dental information given to patient?: Patient has dentist HPI Med Follow Up HPI Details History - bulleted - The patient is a 64-year-old female presenting with management of chronic back pain secondary to spinal stenosis and obesity, and evaluation of a rash. - Obesity: Current weight recorded as 210.8 pounds. Semaglutide has been used, with recent adjustments planned to 1 mg due to tolerance and controlled cravings. - Lumbar pain: The patient reports chronic back pain exacerbated in cold weather. - Rash: Onset approximately one to two weeks ago. Described as pruritic and located primarily on the back, resembling dry skin. No known exposure to irritants or other individuals with similar symptoms. - Current medications include Soma, lidocaine patches, oxycodone 10 mg three times daily, and semaglutide - gout is stable Review of Systems - Musculoskeletal: Reports lumbar back pain. - Dermatological: Reports itchy rash on the back, denies any other associated symptoms. - Endocrine: Denies new symptoms, confirmed management with semaglutide. - General: Reports occasional night sweats with no fever or chills. No fever no chills - Neurological: No headaches no dizziness - Ear nose throat: No sore throat no hearing difficulty no ear pain - Cardiovascular: No syncope, no chest pain, no palpitations - Gastrointestinal: No nausea vomiting or diarrhea - Endocrine: No polyuria polydipsia no heat intolerance - Genitourinary: No dysuria , no blood in urine Physical Exam General: No acute distress HEENT: No acute findings Neck: Supple Respiratory system: Able to talk in full sentences, no audible wheeze cardiovascular: S1-S2 regular in rate and rhythm Gastrointestinal: No pain Skin: Maculopapular rash lower thoracic lumbar area both sides Extremities: Legs painful OUTSIDE DEALER SALES REPRESENTATIVE: Alert awake oriented x3 motor sensory intact Patient Instructions - Continue current medications as prescribed, including semaglutide dose increase to 1 mg. - Apply moisturizers to manage dry skin and alleviate itching. - Maintain current diet management strategies. - Follow up in four weeks via telemedicine to assess medication efficacy and management of symptoms. - Monitor weight and blood pressure regularly and report any significant changes. In house visit in 3 months Medication refills sent [facility] Medical History Gout Obesity Pain management Exposure to COVID-19 virus Severe acute respiratory syndrome coronavirus 2 (SARS-CoV-2) detected Earache, left Abdominal mass Encounter for general adult medical examination with abnormal findings Breast screening Routine gynecological examination Chronic nasal congestion Eustachian tube disorder Right knee pain Encounter for annual routine gynecological examination Upper respiratory tract infection Otitis media of left ear URI with cough and congestion Upper respiratory tract infection Immunizations incomplete Abnormal TSH Blocked ear Rotator cuff tear arthropathy of right shoulder Spasm of left trapezius muscle Eardrum rupture, bilateral Colon cancer screening Narcotic dependence Eczema Spinal stenosis Surgical History History of surgery History of colonoscopy History of section Family History Father Cancer COPD (chronic obstructive pulmonary disease) Mother Arthritis Maternal Grandfather Diabetes mellitus Maternal Grandmother Emphysema lung Paternal Grandfather No problems noted. Paternal Grandmother No problems noted. Brother No problems noted. Brother No problems noted. Brother No problems noted. Sister No problems noted. Sister No problems noted. Son No problems noted. Daughter No problems noted. 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 1. Little interest or pleasure in doing things: not at all 2. Feeling down, depressed, or hopeless: not at all 3. Trouble falling or staying asleep, or sleeping too much: not at all 4. Feeling tired or having little energy: not at all 5. Poor appetite or overeating: not at all 6. Feeling bad about yourself - or that you are a failure or have let yourself or your family down: not at all 7. Trouble concentrating on things, such as reading the newspaper or watching television: not at all 8. Moving or speaking so slowly that other people could have noticed. Or the opposite - being so fidgety or restless that you have been moving around a lot more than usual: not at all 9. Thoughts that you would be better off or of hurting yourself in some way: not at all Total score: 0 Depression Screening Interpretation: Negative Depression Screening Done: Yes 32960 - PHQ-9 Billing: Yes Source: Developed by Drs. Jem Quintero, Candi Felix, Jose Guadalupe Espinosa and colleagues, with an educational conchita from [employer]. Thrive Questionnaire Date Thrive assessed: 10/17/24 I am a: Patient What is your living situation today?: I have a steady place to live Within the past 12 months, did the food you bought not last and you didn't have the money to get more?: Never true Within the past 12 months, did you worry whether your food would run out before you got money to buy more?: Never true Do you have trouble paying for medicines?: No Do you have trouble getting transportation to medical appointments?: No Do you have trouble paying your heating and electricity bill?: No Do you have trouble taking care of your child, family member or friend?: No Do you have trouble with day-to-day activities such as bathing, preparing meals, shopping, managing finances, etc.?: No Are you currently unemployed and looking for a job?: No Are you interested in more education?: No Please select the resources that you would like help with: None Currently or been in a relationship where the following occur: No concerns reported THRIVE Score: 0 AUDIT C Alcohol Use Questionnaire (AUDIT-C) 1. How often do you have a drink containing alcohol?: Never Total Score: 0 Score Reviewed/Action Taken: Yes JESSICA-7 AMB Questionnaire JESSICA-7 Date JESSICA - 7 assessed: 10/17/24 Feeling nervous, anxious, or on edge: 0 = Not at all Not being able to stop or control worryin = Not at all Worrying too much about different things: 0 = Not at all Trouble relaxin = Not at all Being so restless that it is hard to sit still: 0 = Not at all Becoming easily annoyed or irritable: 0 = Not at all Feeling afraid as if something awful might happen: 0 = Not at all Total JESSICA-7 score (0-4 normal; 5-9 mild; 10-14 moderate; 15-21 severe): 0 Source: Developed by Drs. Jem Quintero, Candi Felix, Jose Guadalupe Espinosa and colleagues, with an educational conchita from [employer]. JESSICA-7 Assessment Billing JESSICA-7 Assessment Tool: JESSICA-7 Assessment 62094 Physical exam (Primary Care) Vital Signs: Last Vital Signs BP 136/74 10/17/24 10:44 BMI result Body Mass Index 38.5 Tobacco/Smoking Status: Tobacco use Status Tobacco use date assessed 10/17/24 10/17/24 10:46 Patient Tobacco Use Status Former Tobacco user 10/17/24 10:46 e-Cigarette/Vaping Use Never Used 10/17/24 10:46 PHQ-9: PHQ-9 Score PHQ-9: Total score 0 10/17/24 10:52 Depression Screening Interpretation: Negative Thrive Assessment: Date of Thrive Assessment Date Thrive assessed 10/17/24 10/17/24 10:52 Currently or been in a relationship where the following occur: No concerns reported Coding Level of Care Code Est Pt Level 3 (20474) Diagnoses Spinal stenosis of lumbar region with neurogenic claudication M48.062 Neurogenic claudication status: with neurogenic claudication Spinal region: lumbar Pruritic rash L28.2 Flexural eczema L20.82 Eczema type: flexural Narcotic dependence F11.20 Environmental allergies Z91.09 Morbid obesity due to excess calories E66.01 Additional Codes JESSICA-7 Assessment Billing - JESSICA-7 Assessment Tool: JESSICA-7 Assessment 19367 ([id number]) PHQ-9 - 26466 - PHQ-9 Billing: Yes ([id number]) Assessment & Plan Assessment & Plan (1) Spinal stenosis: Code(s): M48.00 - Spinal stenosis, site unspecified Category: Medical Qualifiers: Neurogenic claudication status: with neurogenic claudication Spinal region: lumbar Qualified Code(s): M48.062 - Spinal stenosis, lumbar region with neurogenic claudication (2) Pruritic rash: Code(s): L28.2 - Other prurigo Category: Medical (3) Eczema: Code(s): L30.9 - Dermatitis, unspecified Category: Medical Qualifiers: Eczema type: flexural Qualified Code(s): L20.82 - Flexural eczema (4) Narcotic dependence: Comment: ON OXYCODONE AND SOMA Code(s): F11.20 - Opioid dependence, uncomplicated Category: Medical (5) Environmental allergies: Code(s): Z91.09 - Other allergy status, other than to drugs and biological substances Category: Medical (6) Morbid obesity due to excess calories: Code(s): E66.01 - Morbid (severe) obesity due to excess calories Category: Medical Plan History - bulleted - The patient is a 64-year-old female presenting with management of chronic back pain secondary to spinal stenosis and obesity, and evaluation of a rash. - Obesity: Current weight recorded as 210.8 pounds. Semaglutide has been used, with recent adjustments planned to 1 mg due to tolerance and controlled cravings. - Lumbar pain: The patient reports chronic back pain exacerbated in cold weather. - Rash: Onset approximately one to two weeks ago. Described as pruritic and located primarily on the back, resembling dry skin. No known exposure to irritants or other individuals with similar symptoms. - Current medications include Soma, lidocaine patches, oxycodone 10 mg three times daily, and semaglutide - gout is stable Review of Systems - Musculoskeletal: Reports lumbar back pain. - Dermatological: Reports itchy rash on the back, denies any other associated symptoms. - Endocrine: Denies new symptoms, confirmed management with semaglutide. - General: Reports occasional night sweats with no fever or chills. No fever no chills - Neurological: No headaches no dizziness - Ear nose throat: No sore throat no hearing difficulty no ear pain - Cardiovascular: No syncope, no chest pain, no palpitations - Gastrointestinal: No nausea vomiting or diarrhea - Endocrine: No polyuria polydipsia no heat intolerance - Genitourinary: No dysuria , no blood in urine Physical Exam General: No acute distress HEENT: No acute findings Neck: Supple Respiratory system: Able to talk in full sentences, no audible wheeze cardiovascular: S1-S2 regular in rate and rhythm Gastrointestinal: No pain Skin: Maculopapular rash lower thoracic lumbar area both sides Extremities: Legs painful OUTSIDE DEALER SALES REPRESENTATIVE: Alert awake oriented x3 motor sensory intact Patient Instructions - Continue current medications as prescribed, including semaglutide dose increase to 1 mg. - Apply moisturizers to manage dry skin and alleviate itching. - Maintain current diet management strategies. - Follow up in four weeks via telemedicine to assess medication efficacy and management of symptoms. - Monitor weight and blood pressure regularly and report any significant changes. In house visit in 3 months Medication refills sent Medications: Changed From semaglutide (weight loss) administer weeks 1 through 4 of therapy 0.5 mg (0.5 mL) subcut QWEEK 2 mL 2RF To semaglutide (weight loss) administer weeks 1 through 4 of therapy 1 mg (0.5 mL) subcut QWEEK 30 days 2.5 mL 2RF Refilled oxycodone ok to fill early this month as patient is going on vacation 10 mg PO TID 30 days PRN 90 tabs 0RF pain F11.20 - Opioid dependence, uncomplicated, M17.10 - Unilateral primary osteoarthritis, unspecified knee, M48.00 - Spinal stenosis, site unspecified, R52 - Pain, unspecified nystatin (Nystop) 1 appl topical BID 30 days 60 grams 2RF carisoprodol (Soma) 350 mg PO BEDTIME 30 days PRN 30 tabs 0RF muscle pain M48.00 - Spinal stenosis, site unspecified
== END 2024-10-17 11:09 | disposition home or self-care (01) ==
PROVIDERS: PCP Internal Medicine; Visit Provider Internal Medicine
DX: M48.062 Spinal stenosis, lumbar region with neurogenic claudication (principal); F11.20 Opioid dependence, uncomplicated; Z68.39 Body mass index [BMI] 39.0-39.9, adult; E66.01 Morbid (severe) obesity due to excess calories; L28.2 Other prurigo; L20.82 Flexural eczema; Z91.09 Other allergy status, other than to drugs and biological substances

== ENCOUNTER → 2024-10-17 10:40 | Outpatient (BNVA) | payer BC, SELFPAY | PROVIDERS: PCP Internal Medicine; Visit Provider Internal Medicine | DX: M48.062 Spinal stenosis, lumbar region with neurogenic claudication (principal); L28.2 Other prurigo; L20.82 Flexural eczema; F11.20 Opioid dependence, uncomplicated; E66.01 Morbid (severe) obesity due to excess calories; Z68.38 Body mass index [BMI] 38.0-38.9, adult; Z91.09 Other allergy status, other than to drugs and biological substances | CPT/HCPCS: 96127 ==

== ENCOUNTER 2024-11-13 08:04 | Outpatient (AMB) | payer BC, SELFPAY ==
--- NOTE | 2024-11-13 08:23 | A.OFFPC_ITS ---
Intake Visit Reasons: 4 weeks f/up Allergies Sulfa (Sulfonamide Antibiotics) [SULFA (SULFONAMIDE ANTIBIOTICS)] Allergy (Inter mediate, Verified 11/13/24 08:23) HIVES, unknown-childhood amoxicillin [Augmentin] Allergy (Unknown, Verified 11/13/24 08:23) rash, itching clavulanic acid [Augmentin] Allergy (Unknown, Verified 11/13/24 08:23) rash, itching gabapentin Adverse Reaction (Unknown, Verified 11/13/24 08:23) N/V Fentanyl Patch Adverse Reaction (Unknown, Uncoded 04/02/24 14:37) skin irritation Medication List - Last Reconciled 11/13/24 by Carlyn Reddy MD carisoprodol (Soma) 350 mg PO BEDTIME PRN 30 days lidocaine 5% 1 patch topical DAILY 30 days nystatin (Nystop) 1 appl topical BID 30 days oxycodone 10 mg PO TID PRN 30 days semaglutide (weight loss) 1 mg (0.5 mL) subcut QWEEK 30 days triamcinolone acetonide 0.1% 1 appl topical BID 90 days Tobacco use date assessed: 11/13/24 Fall risk assessment: No Falls in past year Last assessed Fall Risk: 11/13/24 Dental Screening Dental Screen Date: 11/13/24 Did you have a dental visit in the last 12 months?: Yes Did you have a dental problem in the last 6 months where you did not have access to dental care?: No Was dental information given to patient?: Patient has dentist HPI 4 weeks f/up HPI Details History - The patient is a 64-year-old female pr esenting with knee pain due to osteoarthritis. - Osteoarthritis-related knee pain is se levon and impacts mobility due to stiffness, with a history of effective cortisone injections years prior. - Previously managed by an [place] orthopedic designer, with current recurrence of symptoms. - Pruritus noted, potentially linked to magnesium supplementation, which the patient recently discontinued. - due for her pain meds and muscle relax er, suffer from spinal stenosis Problem List - Osteoarthritis of the knee - Pruritus - spinal stenosis with muscle spasms josé miguel k Patient Instructions - Contact [facility] for an evaluation and potential management of knee pain. - Cease magnesium supplements to assess impact on pruritus. - Monitor symptoms and report any signif icant changes or persistent issues. - pain meds sent for 30 days Review of Systems - Musculoskeletal: Reports knee pain and difficulty with knee flexion. - Dermatological: Reports pruritus possi gretel linked to dietary supplements. - General: No fever no chills - Neurological: No headaches no dizziness - Ear nose throat: No sore throat no hearing difficulty no ear pain - Cardiovascular: No syncope, no chest pain, no palpitations - Gastrointestinal: No nausea vomiting or diarrhea - Endocrine: No polyuria polydipsia no heat intolerance - Genitourinary: No dysuria , no blood in urine [facility] Medical History Gout Obesity Pain management Exposure to COVID-19 virus Severe acute respiratory syndrome coronavirus 2 (SARS-CoV-2) detected Earache, left Abdominal mass Encounter for general adult medical examination with abnormal findings Breast screening Routine gynecological examination Chronic nasal congestion Eustachian tube disorder Right knee pain Encounter for annual routine gynecological examination Upper respiratory tract infection Otitis media of left ear URI with cough and congestion Upper respiratory tract infection Immunizations incomplete Abnormal TSH Blocked ear Rotator cuff tear arthropathy of right shoulder Spasm of left trapezius muscle Eardrum rupture, bilateral Colon cancer screening Narcotic dependence Eczema Spinal stenosis Surgical History History of surgery History of colonoscopy History of section Family History Father Cancer COPD (chronic obstructive pulmonary disease) Mother Arthritis Maternal Grandfather Diabetes mellitus Maternal Grandmother Emphysema lung Paternal Grandfather No problems noted. Paternal Grandmother No problems noted. Brother No problems noted. Brother No problems noted. Brother No problems noted. Sister No problems noted. Sister No problems noted. Son No problems noted. Daughter No problems noted. 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 Sexual orientation: Straight/Heterosexual Gender identity: Female Cognitive needs: No Hearing needs: No Vision needs: Yes Questionnaire Thrive Questionnaire Date Thrive assessed: 10/17/24 I am a: Patient What is your living situation today?: I have a steady place to live Within the past 12 months, did the food you bought not last and you didn't have the money to get more?: Never true Within the past 12 months, did you worry whether your food would run out before you got money to buy more?: Never true Do you have trouble paying for medicines?: No Do you have trouble getting transportation to medical appointments?: No Do you have trouble paying your heating and electricity bill?: No Do you have trouble taking care of your child, family member or friend?: No Do you have trouble with day-to-day activities such as bathing, preparing meals, shopping, managing finances, etc.?: No Are you currently unemployed and looking for a job?: No Are you interested in more education?: No Please select the resources that you would like help with: None Currently or been in a relationship where the following occur: No concerns r eported THRIVE Score: 0 AUDIT C Alcohol Use Questionnaire (AUDIT-C) 1. How often do you have a drink containing alcohol?: Monthly or less 2. How many drinks containing alcohol do you have on a typical day when you are drinking?: 1 or 2 3. How often do you have six or more drinks on one occasion?: Never Total Score: 1 Score Reviewed/Action Taken: Yes JESSICA-7 AMB Questionnaire JESSICA-7 Date JESSICA - 7 assessed: 10/17/24 Source: Developed by Drs. Jem Quintero, Candi Felix, Jose Guadalupe Espinosa and colleagues, with an educational conchita from [employer]. Physical exam (Primary Care) Tobacco/Smoking Status: Tobacco use Status Tobacco use date assessed 11/13/24 11/13/24 08:24 Patient Tobacco Use Status Former Tobacco user 11/13/24 08:24 e-Cigarette/Vaping Use Never Used 11/13/24 08:24 Thrive Assessment: Date of Thrive Assessment Date Thrive assessed 10/17/24 11/13/24 08:24 Currently or been in a relationship where the following occur: No concerns reported Telehealth Telehealth Telehealth Platform: [facility] Location of provider rendering services: practice address Location of patient: address on file Patient Identification confirmed using: Name, : Yes Telehealth method: video Patient verbally consented to treatment: Yes Patient verbally consented to billing insurance company: Yes Patient informed of any privacy concerns related to visit: Yes Minutes spent on Phone/Video with Pt.: 12 Coding Level of Care Code Tele Est Pt Level 3 (16291) Diagnoses Spinal stenosis of lumbar region with neurogenic claudication M48.062 Spinal region: lumbar Neurogenic claudication status: with neurogenic claudication Pruritic rash L28.2 Primary osteoarthritis of both knees M17.0 Osteoarthritis type: primary Laterality: bilateral Narcotic dependence F11.20 Assessment & Plan Assessment & Plan (1) Spinal stenosis: Code(s): M48.00 - Spinal stenosis, site unspecified Category: Medical Qualifiers: Spinal region: lumbar Neurogenic claudication status: with neurogenic claudication Qualified Code(s): M48.062 - Spinal stenosis, lumbar region with neurogenic claudication (2) Pruritic rash: Code(s): L28.2 - Other prurigo Category: Medical (3) Osteoarthritis, knee: Code(s): M17.10 - Unilateral primary osteoarthritis, unspecified knee Category: Medical Qualifiers: Osteoarthritis type: primary Laterality: bilateral Qualified Code(s): M17.0 - Bilateral primary osteoarthritis of knee (4) Narcotic dependence: Comment: ON OXYCODONE AND SOMA Code(s): F11.20 - Opioid dependence, uncomplicated Category: Medical Plan History - The patient is a 64-year-old female presenting with knee pain due to osteoarthritis. - Osteoarthritis-related knee pain is severe and impacts mobility due to stiffness, with a history of effective cortisone injections years prior. - Previously managed by an [place] orthopedic designer, with current recurrence of symptoms. - Pruritus noted, potentially linked to magnesium supplementation, which the patient recently discontinued. - due for her pain meds and muscle relaxer, suffer from spinal stenosis Problem List - Osteoarthritis of the knee - Pruritus - spinal stenosis with muscle spasms back Patient Instructions - Contact [facility] for an evaluation and potential management of knee pain. - Cease magnesium supplements to assess impact on pruritus. - Monitor symptoms and report any significant changes or persistent issues. - pain meds sent for 30 days Medications: Refilled oxycodone ok to fill early this month as patient is going on vacation 10 mg PO TID PRN 90 tabs 0RF pain 30 days F11.20 - Opioid dependence, uncomplicated, M17.10 - Unilateral primary osteoarthritis, unspecified knee, M48.00 - Spinal stenosis, site unspecified, R52 - Pain, unspecified carisoprodol (Soma) 350 mg PO BEDTIME PRN 30 tabs 0RF muscle pain 30 days M48.00 - Spinal stenosis, site unspecified
--- OUTSIDE RECORDS SUMMARY | 2024-11-13 10:58 | XMS_ITS | Data Portability ---
Author Organization [facility], [facility] Address [address] [place] [address] Care Team Providers Care Manager Employment Name Role Phone MAN JIN Primary Care Provider [phone] Assessment No assessment recorded. Plan of Treatment [...] tablets in a dose pack 2023 024 [id number], [address], [place], [id number], 18:18:09 Patient TargetsNo targets recorded. Patient InstructionsNo [...] Address Organization Details Recorded Time No complaints 536959482 Active Status : 'I'; Not Available [facility] 4 09:11:26 Osteoarthr itis of joint of right shoulder region [id number] 00 Active 2023 Annette Lin PA-C [address], [place], [address] , [facility] 4 08:31:04 Cervical radiculopa thy 53586956 Active 2023 Jeff Zepeda PA-C [address], [place], [address] , [facility] 4 16:13:57 Degenerati ve joint disease of shoulder region 63345447 Active 2023 Jeff Zepeda PA-C [address], [place], [address] , [facility] 4 16:19:49 Problem Notes None recorded. Procedures Surgical History Date Name Laterality Status Provider Name and Address Organization Details Recorded Time 4 Sports Shoulder completed Annette Lin PA-C [address], [place], [address], [facility] 04/25/2024 08:30:58 4 Orthopedic Surgery completed KAYLIA L'HEUREUX [facility] 04/25/2024 09:16:38 Imaging Results [...] Name and Address Organization Details Recorded Time 319088 Substance with sulfonami de structure and antibacte rial mechanism of action (substanc e) medicatio n Not available Not available Not available 01/21/2024 [id number] SNOMED Jeff Zepeda PA-C [address], [place], [address], [facility] [place] [facility] 15:51:38 Medications Name Sig Start Date Stop [...] Updated DateTime 01/21/2024 157.48 cm 43.9 kg/m2 695742.17 g Jeff Zepeda PA-C [address], [place], [address], [place] [facility] [place] [facility] 01/21/2024 15:51:14 Date Recorded Body height Body mass index (BMI) Body weight Provider Name and Address Organization Details Last Updated DateTime 04/25/2024 157.48 cm 43.9 kg/m2 943810.17 g DANIE MAYFIELD [facility] 04/25/2024 09:16:47 Social History Question Answer Notes LastModified by Organizat ion Details LastModified Time Tobacco Smoking Status Former Smoker DANIE ATKINSEMMA hylton [facility] 04/25/2024 09:17:44 What Is Your Level [...] Diagnosis/Indication Diagnosis SNOMED-CT Code Diagnosis ICD10 Code Diagnosis Note [id number] WAG[facility] Faustin [address] [place] [address] 01/21/2024 15:43:27 02/01/2024 10:42:49 Cervical radiculopathy 87367622 M54.12 Degenerati ve joint disease of shoulder region 32699745 M19.554 [id number] WAGNER Arshad [address] [place] [address] 04/25/2024 08:55:33 05/13/2024 13:50:08 Osteoarthritis of joint of right shoulder region 4920253935 17141 M19.011 Health Concerns Section Related Observation LastModified by Organization Detai ls LastModified Time None Recorded Concern Status LastModified by Organization Details LastModified Time None Recorded Advance Directives Directive None Recorded Payers Encounter Date Sequence Insurance Name Policy Number Policy Rojo Covered Member ID Rojo Member ID Guarantor Name 01/21/2024 1 [employer] [place] [id number] Maria Ines Moulton [id number] Maria Ines Kenney 04/25/2024 1 [facility] [place] [place] [id number] Xavier Moulton [id number] Maria Ines Moulton Notes Date Note Type [...] forward elevation to 150 degrees, external rotates 45? ? ?, internal rotates back pocket. Positive impingement arc with bursal crepitance. AC joint is palpated and moderately tender, rotator cuff strength 4/5 with horizontal elevation and external rotation. Subscapularis and belly press tests normal. Cervical range of motion restricted with irritability in the cervical outflow and tenderness to palpation along the cervical spine. Positive Spurling's maneuver normal deck builder strength noted. New x-rays ordered and reviewed [...] benefits of Medrol and associated risk factors. The [employer] speech recognition delinquent notice machine operator software was used to create portions of this document. An attempt at proofreading has been made to minimize errors. Please call for corrections. Jeff Zepeda PA-C [address] [place] [address], [place], [address], [facility] [place] [facility] 01/21/2024 16:39:09 04/25/2024 text/html I am seeing the patient today under the supervision of {{Tegan Andersen* O [employer]}} who was available but who [...] procedure notes for injection details. Speech recognition delinquent notice machine operator software was used to create portions of this document. An attempt at proofreading has been made to minimize errors. Please call for corrections. Annette Lni PA-C [address], [place], [address], [facility] [place] [facility] 04/25/2024 12:01:12 OBGyn Episode No OBEpisode recorded.
== END 2024-11-13 09:45 | disposition home or self-care (01) ==
LOC: HO.HMCC 08:04
PROVIDERS: PCP Internal Medicine; Visit Provider Internal Medicine
DX: M48.062 Spinal stenosis, lumbar region with neurogenic claudication (principal); L28.2 Other prurigo; M17.0 Bilateral primary osteoarthritis of knee; F11.20 Opioid dependence, uncomplicated

== ENCOUNTER → 2024-11-13 08:04 | Outpatient (BNVA) | payer BC, SELFPAY | PROVIDERS: PCP Internal Medicine; Visit Provider Internal Medicine ==

== ENCOUNTER 2024-12-11 08:13 | Outpatient (AMB) | payer BC, SELFPAY ==
--- NOTE | 2024-12-11 08:18 | MHC.PC.OV ---
Vital Signs 12/11/24 08:29 Weight 202 lb Intake Visit Reasons: Med Review - [facility] -[phone] Allergies Sulfa (Sulfonamide Antibiotics) [SULFA (SULFONAMIDE ANTIBIOTICS)] Allergy (Intermediate, Verified 12/11/24 08:18) HIVES, unknown-childhood amoxicillin [Augmentin] Allergy (Unknown, Verified 12/11/24 08:18) rash, itching clavulanic acid [Augmentin] Allergy (Unknown, Verified 12/11/24 08:18) rash, itching gabapentin Adverse Reaction (Unknown, Verified 12/11/24 08:18) N/V Fentanyl Patch Adverse Reaction (Unknown, Uncoded 04/02/24 14:37) skin irritation Medication List - Last Reconciled 12/11/24 by Carlyn Reddy MD carisoprodol (Soma) 350 mg PO BEDTIME PRN 30 days lidocaine 5% 1 patch topical DAILY 30 days nystatin (Nystop) 1 appl topical BID 30 days oxycodone 10 mg PO TID PRN 30 days semaglutide (weight loss) 1 mg (0.5 mL) subcut QWEEK 30 days triamcinolone acetonide 0.1% 1 appl topical BID 90 days Tobacco use date assessed: 11/13/24 Fall risk assessment: No Falls in past year Last assessed Fall Risk: 12/11/24 Dental Screening Dental Screen Date: 11/13/24 HPI Med Review - [facility] -[phone] HPI Details Telehealth Attestation This visit was conducted via telehealth, and the documentation accurately reflects the interaction and information discussed. History - The patient is a 64-year-old female presenting with weight management and assessment of knee pain. and also pain med refill - She reports knee pain has intensified, overshadowing her previously troubling back pain, indicating a shift in areas of discomfort. Patient is established with Ortho - A recent nasal drip has led her to suspect a developing common cold, which is noted as clear nasal discharge. - In terms of weight management, the patient has been on Wegovy 1 mg for a month - There is notable weight reduction from 210 pounds noted in early October to 202 pounds currently, reflecting effective weight loss management. - Plans to maintain the current medication dosage have been agreed upon, contingent upon continued weight loss progress and reassessment planned during the next physical consultation. - Spinal stenosis : Patient is on Narcotic pain meds and soma , refill sent Plan Management of knee pain remains observational, given the recent initiation of orthopedic review, with advice to report any exacerbation of symptoms. For the suspected viral upper respiratory infection, patient-directed supportive care is recommended. Weight management is progressing favorably with the Wegovy regimen, with a decrease from 210 to 202 pounds achieved. The current therapeutics will be maintained with further assessment slated for the next appointment to ensure continued effective weight loss and management, supported by insurance authorization for extended medication use. The patient's plan entails following up on these aspects upon her next visit, with continued monitoring and suitable adjustment of management protocols as needed. 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 that [facility] Medical History Gout Obesity Pain management Exposure to COVID-19 virus Severe acute respiratory syndrome coronavirus 2 (SARS-CoV-2) detected Earache, left Abdominal mass Encounter for general adult medical examination with abnormal findings Breast screening Routine gynecological examination Chronic nasal congestion Eustachian tube disorder Right knee pain Encounter for annual routine gynecological examination Upper respiratory tract infection Otitis media of left ear URI with cough and congestion Upper respiratory tract infection Immunizations incomplete Abnormal TSH Blocked ear Rotator cuff tear arthropathy of right shoulder Spasm of left trapezius muscle Eardrum rupture, bilateral Colon cancer screening Narcotic dependence Eczema Spinal stenosis Surgical History History of surgery History of colonoscopy History of section Family History Father Cancer COPD (chronic obstructive pulmonary disease) Mother Arthritis Maternal Grandfather Diabetes mellitus Maternal Grandmother Emphysema lung Paternal Grandfather No problems noted. Paternal Grandmother No problems noted. Brother No problems noted. Brother No problems noted. Brother No problems noted. Sister No problems noted. Sister No problems noted. Son No problems noted. Daughter No problems noted. 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 Jem Quintero, Candi Felix, Jose Guadalupe Espinosa and colleagues, with an educational conchita from [employer]. Review of Systems Const Denies chills and Denies fever(s) ENT Denies epistaxis Card Denies chest pain Resp Denies chest congestion, Denies cough and Denies hemoptysis GI Denies diarrhea and Denies nausea Skin/Breast Denies rash Neuro Reports no additional complaints Psych Reports no additional complaints Endo Reports no additional complaints Physical exam (Primary Care) Tobacco/Smoking Status: Tobacco use Status Tobacco use date assessed 11/13/24 12/11/24 08:19 Patient Tobacco Use Status Former Tobacco user 12/11/24 08:19 e-Cigarette/Vaping Use Never Used 12/11/24 08:19 Thrive Assessment: Date of Thrive Assessment Date Thrive assessed 10/17/24 12/11/24 08:19 Telehealth Telehealth Telehealth Platform: Telephone Location of provider rendering services: practice address Location of patient: address on file Patient Identification confirmed using: Name, : Yes Telehealth method: voice only Patient verbally consented to treatment: Yes Patient verbally consented to billing insurance company: Yes Patient informed of any privacy concerns related to visit: Yes Minutes spent on Phone/Video with Pt.: 12 Coding Level of Care Code Tele Est Pt Level 3 (18406) Diagnoses Spinal stenosis of lumbar region with neurogenic claudication M48.062 Spinal region: lumbar Neurogenic claudication status: with neurogenic claudication Primary osteoarthritis of both knees M17.0 Osteoarthritis type: primary Laterality: bilateral Narcotic dependence F11.20 Morbid obesity due to excess calories E66.01 Assessment & Plan Assessment & Plan (1) Spinal stenosis: Code(s): M48.00 - Spinal stenosis, site unspecified Category: Medical Qualifiers: Spinal region: lumbar Neurogenic claudication status: with neurogenic claudication Qualified Code(s): M48.062 - Spinal stenosis, lumbar region with neurogenic claudication (2) Osteoarthritis, knee: Code(s): M17.10 - Unilateral primary osteoarthritis, unspecified knee Category: Medical Qualifiers: Osteoarthritis type: primary Laterality: bilateral Qualified Code(s): M17.0 - Bilateral primary osteoarthritis of knee (3) Narcotic dependence: Comment: ON OXYCODONE AND SOMA Code(s): F11.20 - Opioid dependence, uncomplicated Category: Medical (4) Morbid obesity due to excess calories: Code(s): E66.01 - Morbid (severe) obesity due to excess calories Category: Medical Plan Telehealth Attestation This visit was conducted via telehealth, and the documentation accurately reflects the interaction and information discussed. History - The patient is a 64-year-old female presenting with weight management and assessment of knee pain. and also pain med refill - She reports knee pain has intensified, overshadowing her previously troubling back pain, indicating a shift in areas of discomfort. Patient is established with Ortho - A recent nasal drip has led her to suspect a developing common cold, which is noted as clear nasal discharge. - In terms of weight management, the patient has been on Wegovy 1 mg for a month - There is notable weight reduction from 210 pounds noted in early October to 202 pounds currently, reflecting effective weight loss management. - Plans to maintain the current medication dosage have been agreed upon, contingent upon continued weight loss progress and reassessment planned during the next physical consultation. - Spinal stenosis : Patient is on Narcotic pain meds and soma , refill sent Plan Management of knee pain remains observational, given the recent initiation of orthopedic review, with advice to report any exacerbation of symptoms. For the suspected viral upper respiratory infection, patient-directed supportive care is recommended. Weight management is progressing favorably with the Wegovy regimen, with a decrease from 210 to 202 pounds achieved. The current therapeutics will be maintained with further assessment slated for the next appointment to ensure continued effective weight loss and management, supported by insurance authorization for extended medication use. The patient's plan entails following up on these aspects upon her next visit, with continued monitoring and suitable adjustment of management protocols as needed. 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 Medications: Refilled carisoprodol (Soma) 350 mg PO BEDTIME 30 days PRN 30 tabs 0RF muscle pain M48.00 - Spinal stenosis, site unspecified oxycodone ok to fill early this month as patient is going on vacation 10 mg PO TID 30 days PRN 90 tabs 0RF pain F11.20 - Opioid dependence, uncomplicated, M17.10 - Unilateral primary osteoarthritis, unspecified knee, M48.00 - Spinal stenosis, site unspecified, R52 - Pain, unspecified carisoprodol (Soma) 350 mg PO BEDTIME 30 days PRN 30 tabs 0RF muscle pain M48.00 - Spinal stenosis, site unspecified oxycodone ok to fill early this month as patient is going on vacation 10 mg PO TID 30 days PRN 90 tabs 0RF pain F11.20 - Opioid dependence, uncomplicated, M17.10 - Unilateral primary osteoarthritis, unspecified knee, M48.00 - Spinal stenosis, site unspecified, R52 - Pain, unspecified
--- OUTSIDE RECORDS SUMMARY | 2024-12-11 08:31 | XMS_ITS | Data Portability ---
Author Organization [facility], [facility] Address [address] [place] [address] Care Team Providers Care Reproduction Artist Name Role Phone MAN JIN Primary Care Provider [phone] Assessment No assessment recorded. Plan of Treatment [...] tablets in a dose pack 2023 024 [id number], [address], [place], [phone], 18:18:09 Patient TargetsNo targets recorded. Patient InstructionsNo [...] Address Organization Details Recorded Time No complaints 301220282 Active Status : 'I'; Not Available [facility] 4 09:11:26 Osteoarthr itis of joint of right shoulder region 4142920978704 00 Active 2023 Annette Lin PA-C [address], [place], [address] , [facility] 4 08:31:04 Cervical radiculopa thy 04968513 Active 2023 Jeff Zepeda PA-C [address], [place], [address] , [facility] 4 16:13:57 Degenerati ve joint disease of shoulder region 40379229 Active 2023 Jeff Zepeda PA-C [address], [place], [address] , [facility] 4 16:19:49 Problem Notes None recorded. Procedures Surgical History Date Name Laterality Status Provider Name and Address Organization Details Recorded Time 4 Sports Shoulder completed Annette Lin PA-C [address], [place], [address], [facility] 04/25/2024 08:30:58 4 Orthopedic Surgery completed KAYLIA L'HEUREUX [facility] 04/25/2024 09:16:38 Imaging [...] Name and Address Organization Details Recorded Time 933324 Substance with sulfonami de structure and antibacte rial mechanism of action (substanc e) medicatio n Not available Not available Not available 01/21/2024 61400 8003 SNOMED Jeff Zepeda PA-C [address], [place], [address], [facility] [place] [facility] 15:51:38 Medications Name Sig Start [...] Updated DateTime 01/21/2024 157.48 cm 43.9 kg/m2 468291.17 g Jeff Zepeda PA-C [address], [place], [address], [place] [facility] [place] [facility] 01/21/2024 15:51:14 Date Recorded Body height Body mass index (BMI) Body weight Provider Name and Address Organization Details Last Updated DateTime 04/25/2024 157.48 cm 43.9 kg/m2 665465.17 g DANIE MAYFIELD [facility] 04/25/2024 09:16:47 Social History Question Answer Notes LastModified by Organizat ion Details LastModified Time Tobacco Smoking Status Former Smoker DANIE ATKINSEMMA hylton [facility] 04/25/2024 09:17:44 What Is Your Level Of [...] SNOMED-CT Code Diagnosis ICD10 Code Diagnosis Note [id number] W[facility] Faustin [address] [place] [address] 01/21/2024 15:43:27 02/01/2024 10:42:49 Cervical radiculopathy 67743005 M54.12 Degenerati ve joint disease of shoulder region 50986965 M19.740 [id number] WAGNER Arshad [address] [place] [address] 04/25/2024 08:55:33 05/13/2024 13:50:08 Osteoarthritis of joint of right shoulder region 3485292070 58806 M19.011 Health Concerns Section Related Observation LastModified by Organization Detai ls LastModified Time None Recorded Concern Status LastModified by Organization Details LastModified Time None Recorded Advance Directives Directive None Recorded Payers Encounter Date Sequence Insurance Name Policy Number Policy Rojo Covered Member ID Rojo Member ID Guarantor Name 01/21/2024 1 [employer] [place] [place] [id number] Maria Ines Moulton [id number] Maria Ines Kenney 04/25/2024 1 [facility] [place] [place] [id number] Xavier Moulton [id number] Maria Ines Moulton Notes Date Note Type [...] the cervical spine. Positive Spurling's maneuver normal coffee farmer strength noted. New x-rays ordered and reviewed [...] benefits of Medrol and associated risk factors. [employer] speech recognition transition lead software was used to create portions of this document. An attempt at proofreading has been made to minimize errors. Please call for corrections. Jeff Zepeda PA-C [address] [place] [address] [address] [facility], [place], [address], [facility] [place] [facility] 01/21/2024 16:39:09 04/25/2024 text/html I [...] procedure notes for injection details. Speech recognition transition lead software was used to create portions of this document. An attempt at proofreading has been made to minimize errors. Please call for corrections. Annette Lin PA-C [address] [facility] [address], [place], [address], [facility] [place] [facility] 04/25/2024 12:01:12 OBGyn Episode No OBEpisode recorded.
== END 2024-12-11 09:11 | disposition home or self-care (01) ==
LOC: HO.HMCC 08:13
PROVIDERS: PCP Internal Medicine; Visit Provider Internal Medicine
DX: M48.062 Spinal stenosis, lumbar region with neurogenic claudication (principal); M17.0 Bilateral primary osteoarthritis of knee; F11.20 Opioid dependence, uncomplicated; E66.01 Morbid (severe) obesity due to excess calories

== ENCOUNTER 2024-12-31 09:50 | Outpatient (AMB) | payer BC, SELFPAY ==
[2024-12-31 09:59] VITALS: BP 138/84; PULSE 57; TEMP 36.6; O2SAT 97; BMI 36.9
--- NOTE | 2024-12-31 09:59 | MHC.PC.OV ---
Vital Signs 12/31/24 09:59 Height 5 ft 2 in Weight 201 lb 8 oz BMI 36.9 BP 138/84 Blood Pressure Location Rt brachial Position Sitting Pulse 57 Pulse Source Pulse Oximeter Temp 97.9 F Temp Source Oral Pulse Oximetry (%) 97 Oxygen Delivery Method Room Air Intake Visit Reasons: Follow Up Allergies Sulfa (Sulfonamide Antibiotics) [SULFA (SULFONAMIDE ANTIBIOTICS)] Allergy (Intermediate, Verified 12/31/24 10:11) HIVES, unknown-childhood amoxicillin [Augmentin] Allergy (Unknown, Verified 12/31/24 10:11) rash, itching clavulanic acid [Augmentin] Allergy (Unknown, Verified 12/31/24 10:11) rash, itching gabapentin Adverse Reaction (Unknown, Verified 12/31/24 10:11) N/V Fentanyl Patch Adverse Reaction (Unknown, Uncoded 04/02/24 14:37) skin irritation Medication List - Last Reconciled 12/31/24 by Carlyn Reddy MD azithromycin 250 mg PO ONCE 5 days carisoprodol (Soma) 350 mg PO BEDTIME PRN 30 days lidocaine 5% 1 patch topical DAILY 30 days nystatin (Nystop) 1 appl topical BID 30 days oxycodone 10 mg PO TID PRN 30 days semaglutide (weight loss) 1 mg (0.5 mL) subcut QWEEK 30 days triamcinolone acetonide 0.1% 1 appl topical BID 90 days Tobacco use date assessed: 12/31/24 Fall risk assessment: No Falls in past year Last assessed Fall Risk: 12/31/24 Dental Screening Dental Screen Date: 12/31/24 Did you have a dental visit in the last 12 months?: No Did you have a dental problem in the last 6 months where you did not have access to dental care?: No Was dental information given to patient?: Patient has dentist HPI Follow Up HPI Details - The patient is a 64-year-old female came in for her medication refill Patient suffers from spinal stenosis and is on narcotic pain medication and Soma for muscle spasms She is complying with the treatment plan no signs of abuse 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 Recurrently experiencing dark greenish phlegm, more prominent during the night. - The patient has a history of chronic bronchitis and had pneumonia, raising her concern for her current symptoms. -she also need a paperwork filled for her daycare today which we did at rest Problem List - Chronic Bronchitis - History of Pneumonia - spinal stenosis Patient Instructions - Proceed to have the chest X-ray as discussed. - Avoid picking up heavy objects, particularly children or grandchildren. - Take the prescribed course of the azithromycin (Z-Connor) as directed. - Monitor symptoms, and seek further medical attention if symptoms such as fever, increased shortness of breath, or chest pain develop. Review of Systems - General: No fever no chills - Neurological: No headaches no dizziness - Cardiovascular: No syncope, no chest pain, no palpitations - Gastrointestinal: No nausea vomiting or diarrhea - Endocrine: No polyuria polydipsia no heat intolerance - Genitourinary: No dysuria , no blood in urine Physical Exam General: No acute distress HEENT: No acute findings Neck: Supple Respiratory system: Wheezing present, able to talk in full sentences cardiovascular: S1-S2 regular in rate and rhythm Gastrointestinal: No pain Extremities: No new findings PLASTIC FINISHER: Alert awake oriented x3 motor sensory intact Skin: Normal turgor [facility] Medical History Gout Obesity Pain management Exposure to COVID-19 virus Severe acute respiratory syndrome coronavirus 2 (SARS-CoV-2) detected Earache, left Abdominal mass Encounter for general adult medical examination with abnormal findings Breast screening Routine gynecological examination Chronic nasal congestion Eustachian tube disorder Right knee pain Encounter for annual routine gynecological examination Upper respiratory tract infection Otitis media of left ear URI with cough and congestion Upper respiratory tract infection Immunizations incomplete Abnormal TSH Blocked ear Rotator cuff tear arthropathy of right shoulder Spasm of left trapezius muscle Eardrum rupture, bilateral Colon cancer screening Narcotic dependence Eczema Spinal stenosis Surgical History History of surgery History of colonoscopy History of section Family History Father Cancer COPD (chronic obstructive pulmonary disease) Mother Arthritis Maternal Grandfather Diabetes mellitus Maternal Grandmother Emphysema lung Paternal Grandfather No problems noted. Paternal Grandmother No problems noted. Brother No problems noted. Brother No problems noted. Brother No problems noted. Sister No problems noted. Sister No problems noted. Son No problems noted. Daughter No problems noted. 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 53061 - PHQ-9 Billing: Patient declined-do not bill Source: Developed by Drs. Jem Quintero, Candi Felix, Jose Guadalupe Espinosa and colleagues, with an educational conchita from [employer]. Thrive Questionnaire Date Thrive assessed: 12/31/24 I am a: Patient What is your living situation today?: I have a steady place to live Within the past 12 months, did the food you bought not last and you didn't have the money to get more?: Never true Within the past 12 months, did you worry whether your food would run out before you got money to buy more?: Never true Do you have trouble paying for medicines?: No Do you have trouble getting transportation to medical appointments?: No Do you have trouble paying your heating and electricity bill?: No Do you have trouble taking care of your child, family member or friend?: No Do you have trouble with day-to-day activities such as bathing, preparing meals, shopping, managing finances, etc.?: No Are you currently unemployed and looking for a job?: No Are you interested in more education?: No Please select the resources that you would like help with: None Currently or been in a relationship where the following occur: No concerns reported THRIVE Score: 0 AUDIT C Alcohol Use Questionnaire (AUDIT-C) 1. How often do you have a drink containing alcohol?: Monthly or less 2. How many drinks containing alcohol do you have on a typical day when you are drinking?: 1 or 2 3. How often do you have six or more drinks on one occasion?: Never Total Score: 1 Score Reviewed/Action Taken: Yes JESSICA-7 AMB Questionnaire JESSICA-7 Date JESSICA - 7 assessed: 12/31/24 Feeling nervous, anxious, or on edge: 0 = Not at all Not being able to stop or control worryin = Not at all Worrying too much about different things: 0 = Not at all Trouble relaxin = Not at all Being so restless that it is hard to sit still: 0 = Not at all Becoming easily annoyed or irritable: 0 = Not at all Feeling afraid as if something awful might happen: 0 = Not at all Total JESSICA-7 score (0-4 normal; 5-9 mild; 10-14 moderate; 15-21 severe): 0 Source: Developed by Drs. Jem Quintero, Candi Felix, Jose Guadalupe Espinosa and colleagues, with an educational conchita from [employer]. JESSICA-7 Assessment Billing JESSICA-7 Assessment Tool: JESSICA-7 Assessment 04230 Physical exam (Primary Care) Vital Signs: Last Vital Signs Temp 97.9 F 12/31/24 09:59 Pulse 57 12/31/24 09:59 BP 138/84 12/31/24 09:59 Pulse Ox 97 12/31/24 09:59 Oxygen Delivery Method Room Air 12/31/24 09:59 BMI result Body Mass Index 36.9 Tobacco/Smoking Status: Tobacco use Status Tobacco use date assessed 12/31/24 12/31/24 10:12 Patient Tobacco Use Status Former Tobacco user 12/31/24 10:01 e-Cigarette/Vaping Use Never Used 12/31/24 10:01 Thrive Assessment: Date of Thrive Assessment Date Thrive assessed 12/31/24 12/31/24 10:12 Currently or been in a relationship where the following occur: No concerns reported Coding Level of Care Code Est Pt Level 4 (95280) Diagnoses Acute bronchitis, unspecified organism J20.9 Bronchitis organism: unspecified organism Spinal stenosis of lumbar region with neurogenic claudication M48.062 Spinal region: lumbar Neurogenic claudication status: with neurogenic claudication Narcotic dependence F11.20 Lumbar paraspinal muscle spasm M62.830 Exposure to potential infection Z20.9 Additional Codes JESSICA-7 Assessment Billing - JESSICA-7 Assessment Tool: JESSICA-7 Assessment 93989 ([id number]) Assessment & Plan Assessment & Plan (1) Acute bronchitis: Code(s): J20.9 - Acute bronchitis, unspecified Category: Medical Qualifiers: Bronchitis organism: unspecified organism Qualified Code(s): J20.9 - Acute bronchitis, unspecified (2) Spinal stenosis: Code(s): M48.00 - Spinal stenosis, site unspecified Category: Medical Qualifiers: Spinal region: lumbar Neurogenic claudication status: with neurogenic claudication Qualified Code(s): M48.062 - Spinal stenosis, lumbar region with neurogenic claudication (3) Narcotic dependence: Comment: ON OXYCODONE AND SOMA Code(s): F11.20 - Opioid dependence, uncomplicated Category: Medical (4) Lumbar paraspinal muscle spasm: Code(s): M62.830 - Muscle spasm of back Category: Medical (5) Exposure to potential infection: Code(s): Z20.9 - Contact with and (suspected) exposure to unspecified communicable disease Category: Medical Plan - The patient is a 64-year-old female came in for her medication refill Patient suffers from spinal stenosis and is on narcotic pain medication and Soma for muscle spasms She is complying with the treatment plan no signs of abuse 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 Recurrently experiencing dark greenish phlegm, more prominent during the night. - The patient has a history of chronic bronchitis and had pneumonia, raising her concern for her current symptoms. -she also need a paperwork filled for her daycare today which we did at rest Problem List - Chronic Bronchitis - History of Pneumonia - spinal stenosis Patient Instructions - Proceed to have the chest X-ray as discussed. - Avoid picking up heavy objects, particularly children or grandchildren. - Take the prescribed course of the azithromycin (Z-Connor) as directed. - Monitor symptoms, and seek further medical attention if symptoms such as fever, increased shortness of breath, or chest pain develop. Orders: Orders XR chest 2V Today J40 - Bronchitis, not specified as acute or chronic Medications: New azithromycin Take 2 tablets today then 1 daily 250 mg PO ONCE 5 days 6 tabs 0RF J06.9 - Acute upper respiratory infection, unspecified Refilled carisoprodol (Soma) 350 mg PO BEDTIME 30 days PRN 30 tabs 0RF muscle pain M48.00 - Spinal stenosis, site unspecified oxycodone ok to fill early this month as patient is going on vacation 10 mg PO TID 30 days PRN 90 tabs 0RF pain F11.20 - Opioid dependence, uncomplicated, M17.10 - Unilateral primary osteoarthritis, unspecified knee, M48.00 - Spinal stenosis, site unspecified, R52 - Pain, unspecified
--- OUTSIDE RECORDS SUMMARY | 2024-12-31 11:12 | XMS_ITS | Data Portability ---
Author Organization [facility], [facility] Address [address] [place] [address] Care Team Providers Care Secondary Special Education Teacher Name Role Phone MAN JIN Primary Care Provider Assessment No assessment recorded. Plan of Treatment [...] tablets in a dose pack 2023 024 [id number], [address], [place], [id number], 18:18:09 Patient TargetsNo targets recorded. Patient InstructionsNo [...] Address Organization Details Recorded Time No complaints [id number] Active Status : 'I'; Not Available [facility] 4 09:11:26 Osteoarthr itis of joint of right shoulder region [id number] 00 Active 2023 Annette Lin PA-C [address], [place], [address] , [facility] 4 08:31:04 Cervical radiculopa thy 27303057 Active 2023 Jeff Zepeda PA-C [address], [place], [address] , [facility] 4 16:13:57 Degenerati ve joint disease of shoulder region 76970911 Active 2023 Jeff Zepeda PA-C [address], [place], [address] , [facility] 4 16:19:49 Problem Notes None recorded. Procedures Surgical History Date Name Laterality Status Provider Name and Address Organization Details Recorded Time 4 Sports Shoulder completed Annette Lin PA-C [address], [place], [address], [facility] 04/25/2024 08:30:58 4 Orthopedic Surgery completed KAYLIA L'HEUREUX [facility] 04/25/2024 09:16:38 Imaging Results [...] Name and Address Organization Details Recorded Time 611620 Substance with sulfonami de structure and antibacte rial mechanism of action (substanc e) medicatio n Not available Not available Not available 01/21/2024 [id number] SNOMED Jeff Zepeda PA-C [address], [place], [address], [facility] 15:51:38 Medications [...] Updated DateTime 01/21/2024 157.48 cm 43.9 kg/m2 892415.17 g Jeff Zepeda PA-C [address], [place], [address], [place] [facility] 01/21/2024 15:51:14 Date Recorded Body height Body mass index (BMI) Body weight Provider Name and Address Organization Details Last Updated DateTime 04/25/2024 157.48 cm 43.9 kg/m2 185542.17 g DANIE MAYFIELD [facility] 04/25/2024 09:16:47 Social History Question Answer Notes LastModified by Organizat ion Details LastModified Time Tobacco Smoking Status Former Smoker DANIE ATKINSEMMA hylton [facility] 04/25/2024 09:17:44 What Is Your Level [...] SNOMED-CT Code Diagnosis ICD10 Code Diagnosis Note [id number] [facility] Faustin [address] [place] [address] 01/21/2024 15:43:27 02/01/2024 10:42:49 Cervical radiculopathy 34654753 M54.12 Degenerati ve joint disease of shoulder region 51891952 M19.578 [id number] [facility] Arshad [address] [place] [address] 04/25/2024 08:55:33 05/13/2024 13:50:08 Osteoarthritis of joint of right shoulder region 4406323733 79883 M19.011 Health Concerns Section Related Observation LastModified by Organization Detai ls LastModified Time None Recorded Concern Status LastModified by Organization Details LastModified Time None Recorded Advance Directives Directive None Recorded Payers Encounter Date Sequence Insurance Name Policy Number Policy Rojo Covered Member ID Rojo Member ID Guarantor Name 01/21/2024 1 [employer] ([facility] [id number] Maria Ines Moulton [id number] Maria Ines Kenney 04/25/[address] [facility] ([facility]) [id number] Xavier Moulton [id number] Maria Ines Moulton Notes Date Note Type [...] the cervical spine. Positive Spurling's maneuver normal pump attendant strength noted. New x-rays ordered and reviewed [...] benefits of Medrol and associated risk factors. [employer] speech recognition glove parts cutter software was used to create portions of this document. An attempt at proofreading has been made to minimize errors. Please call for corrections. Jeff Zepeda PA-C [address] [place] [address], [place], [address], [facility] 01/21/2024 16:39:09 [...] procedure notes for injection details. Speech recognition glove parts cutter software was used to create portions of this document. An attempt at proofreading has been made to minimize errors. Please call for corrections. Annette Lin PA-C [address] [facility] [address], [place], [address], [facility] 04/25/2024 12:01:12 OBGyn Episode No OBEpisode recorded.
== END 2024-12-31 10:24 | disposition home or self-care (01) ==
LOC: HO.HMCC 09:52
PROVIDERS: PCP Internal Medicine; Visit Provider Internal Medicine
DX: J20.9 Acute bronchitis, unspecified (principal); M48.062 Spinal stenosis, lumbar region with neurogenic claudication; F11.20 Opioid dependence, uncomplicated; M62.830 Muscle spasm of back; Z20.9 Contact with and (suspected) exposure to unspecified communicable disease

== ENCOUNTER 2024-12-31 09:50 | Outpatient (REF) | payer BC, SELFPAY ==
--- NOTE | ~2024-12-31 | XR_ITS ---
EXAMINATION: XR CHEST 2 VIEWS HISTORY: J40 - Bronchitis, not specified as acute or chronic COMPARISON: Comparison is made with the prior examination dated 01/24/2017. FINDINGS: PA and lateral views of the chest are submitted. The lungs are expanded and clear. There is no pleural effusion, pneumothorax, or pulmonary vascular congestion. The heart is normal in size. There is degenerative disc disease of the spine. XR/XR chest 2V IMPRESSION: No acute cardiopulmonary abnormality. Electronically signed by: Jem Ashby MD 12/31/2024 03:13 PM EDT RP
== END 2024-12-31 09:51 | disposition home or self-care (01) ==
LOC: HO.HMGCX 09:50
PROVIDERS: PCP Internal Medicine; Visit Provider Internal Medicine
DX: J20.9 Acute bronchitis, unspecified (principal); M48.062 Spinal stenosis, lumbar region with neurogenic claudication; F11.20 Opioid dependence, uncomplicated; M62.830 Muscle spasm of back; Z20.9 Contact with and (suspected) exposure to unspecified communicable disease
CPT/HCPCS: 71046; 96127

== ENCOUNTER → 2024-12-31 10:30 | Outpatient (BNV) | payer BC, SELFPAY | PROVIDERS: PCP Internal Medicine; Visit Provider Radiology Diagnostic Radiology | DX: J40 Bronchitis, not specified as acute or chronic (principal) | CPT/HCPCS: 71046 ==

== ENCOUNTER 2025-02-05 08:45 | Outpatient (AMB) | payer BC, SELFPAY ==
--- NOTE | 2025-02-05 09:04 | A.OFFPC_ITS ---
Intake Visit Reasons: 1 months f/up Allergies Sulfa (Sulfonamide Antibiotics) [SULFA (SULFONAMIDE ANTIBIOTICS)] Allergy (Inte rmediate, Verified 02/05/25 09:24) HIVES, unknown-childhood amoxicillin [Augmentin] Allergy (Unknown, Verified 02/05/25 09:24) rash, itching clavulanic acid [Augmentin] Allergy (Unknown, Verified 02/05/25 09:24) rash, itching gabapentin Adverse Reaction (Unknown, Verified 02/05/25 09:24) N/V Fentanyl Patch Adverse Reaction (Unknown, Uncoded 02/05/25 09:24) skin irritation Medication List - Last Reconciled 02/05/25 by Carlyn Reddy MD azithromycin 250 mg PO ONCE 5 days carisoprodol (Soma) 350 mg PO BEDTIME PRN 30 days lidocaine 5% 1 patch topical DAILY 30 days nystatin (Nystop) 1 appl topical BID 30 days oxycodone 10 mg PO TID PRN 30 days semaglutide (weight loss) 1 mg (0.5 mL) subcut QWEEK 30 days triamcinolone acetonide 0.1% 1 appl topical BID 90 days Tobacco use date assessed: 02/05/25 Fall risk assessment: No Falls in past year Last assessed Fall Risk: 02/05/25 Dental Screening Dental Screen Date: 02/05/25 Did you have a dental visit in the last 12 months?: Yes Did you have a dental problem in the last 6 months where you did not have access to dental care?: No Was dental information given to patient?: Patient has dentist HPI 1 months f/up HPI Details Patient is 65-year-old female this is telemedicine conference to fill her pain medication Patient suffers from back pain due to spinal stenosis, she is on Soma 350 mg at night and oxycodone 10 mg 3 times a day. 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 i have sent Prednison 20 mg once a day for 5 days with food to help with inflamation along with her other monthly pain meds [facility] Medical History Gout Obesity Pain management Exposure to COVID-19 virus Severe acute respiratory syndrome coronavirus 2 (SARS-CoV-2) detected Earache, left Abdominal mass Encounter for general adult medical examination with abnormal findings Breast screening Routine gynecological examination Chronic nasal congestion Eustachian tube disorder Right knee pain Encounter for annual routine gynecological examination Upper respiratory tract infection Otitis media of left ear URI with cough and congestion Upper respiratory tract infection Immunizations incomplete Abnormal TSH Blocked ear Rotator cuff tear arthropathy of right shoulder Spasm of left trapezius muscle Eardrum rupture, bilateral Colon cancer screening Narcotic dependence Eczema Spinal stenosis Surgical History History of surgery History of colonoscopy History of section Family History Father Cancer COPD (chronic obstructive pulmonary disease) Mother Arthritis Maternal Grandfather Diabetes mellitus Maternal Grandmother Emphysema lung Paternal Grandfather No problems noted. Paternal Grandmother No problems noted. Brother No problems noted. Brother No problems noted. Brother No problems noted. Sister No problems noted. Sister No problems noted. Son No problems noted. Daughter No problems noted. 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 How often do you have a drink containing alcohol?: Monthly or less 2. How many drinks containing alcohol do you have on a typical day when you are drinking?: 1 or 2 3. How often do you have six or more drinks on one occasion?: Never Total Score: 1 Score Reviewed/Action Taken: Yes JESSICA-7 AMB Questionnaire JESSICA-7 Date JESSICA - 7 assessed: 12/31/24 Source: Developed by Drs. Jem Quintero, Candi Felix, Jose Guadalupe Espinosa and colleagues, with an educational conchita from [employer]. Review of Systems Const Denies chills and Denies fever(s) ENT Denies epistaxis and Denies nasal discharge Card Denies chest pain Resp Denies chest congestion, Denies cough and Denies hemoptysis GI Denies diarrhea and Denies nausea Skin/Breast Denies rash Neuro Reports no additional complaints Psych Reports no additional complaints Endo Reports no additional complaints Physical exam (Primary Care) Tobacco/Smoking Status: Tobacco use Status Tobacco use date assessed 02/05/25 02/05/25 09:25 Patient Tobacco Use Status Former Tobacco user 02/05/25 09:04 e-Cigarette/Vaping Use Never Used 02/05/25 09:04 Thrive Assessment: Date of Thrive Assessment Date Thrive assessed 12/31/24 02/05/25 09:04 Telehealth Telehealth Telehealth Platform: [employer] Location of provider rendering services: practice address Location of patient: address on file Patient Identification confirmed using: Name, : Yes Telehealth method: voice only Patient verbally consented to treatment: Yes Patient verbally consented to billing insurance company: Yes Patient informed of any privacy concerns related to visit: Yes Minutes spent on Phone/Video with Pt.: 13 Coding Level of Care Code Tele Est Pt Level 3 (78657) Diagnoses Toe pain, left M79.675 Spinal stenosis of lumbar region with neurogenic claudication M48.062 Spinal region: lumbar Neurogenic claudication status: with neurogenic claudication Narcotic dependence F11.20 Lumbar paraspinal muscle spasm M62.830 Assessment & Plan Assessment & Plan (1) Toe pain, left: Code(s): M79.675 - Pain in left toe(s) Category: Medical (2) Spinal stenosis: Code(s): M48.00 - Spinal stenosis, site unspecified Category: Medical Qualifiers: Spinal region: lumbar Neurogenic claudication status: with neurogenic claudication Qualified Code(s): M48.062 - Spinal stenosis, lumbar region with neurogenic claudication (3) Narcotic dependence: Comment: ON OXYCODONE AND SOMA Code(s): F11.20 - Opioid dependence, uncomplicated Category: Medical (4) Lumbar paraspinal muscle spasm: Code(s): M62.830 - Muscle spasm of back Category: Medical Plan Patient is 65-year-old female this is telemedicine conference to fill her pain medication Patient suffers from back pain due to spinal stenosis, she is on Soma 350 mg at night and oxycodone 10 mg 3 times a day. 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 i have sent Prednison 20 mg once a day for 5 days with food to help with inflamation along with her other monthly pain meds requesting Podiatry ref for left toe pain which has been getting worse as well Orders: Referrals Podiatry Referral M79.675 - Pain in left toe(s) Medications: New prednisone 20 mg PO DAILY 5 tabs 0RF 5 days Refilled oxycodone ok to fill early this month as patient is going on vacation 10 mg PO TID PRN 90 tabs 0RF pain 30 days F11.20 - Opioid dependence, uncomplicated, M17.10 - Unilateral primary osteoarthritis, unspecified knee, M48.00 - Spinal stenosis, site unspecified, R52 - Pain, unspecified carisoprodol (Soma) 350 mg PO BEDTIME PRN 30 tabs 0RF muscle pain 30 days M48.00 - Spinal stenosis, site unspecified
--- OUTSIDE RECORDS SUMMARY | 2025-02-05 09:13 | XMS_ITS | Data Portability ---
Author Organization [facility] Address [address] [place] [address] Care Team Providers Care Global Regulatory Lead Name Role Phone MAN JIN Primary Care [...] tablets in a dose pack 2023 024 [id number], [address], [place], [id number], 18:18:09 Patient TargetsNo targets recorded. Patient InstructionsNo [...] Address Organization Details Recorded Time No complaints [id number] Active Status : 'I'; Not Available [facility] 4 09:11:26 Osteoarthr itis of joint of right shoulder region [id number] 00 Active 2023 Annette Lin PA-C [address], [place], [address] , [facility] 4 08:31:04 Cervical radiculopa thy 49708029 Active 2023 Jeff Zepeda PA-C [address], [place], [address] , [facility] 4 16:13:57 Degenerati ve joint disease of shoulder region 75757920 Active 2023 Jeff Zepeda PA-C [address], [place], [address] , [facility] 4 16:19:49 Problem Notes None recorded. Procedures Surgical History Date Name Laterality Status Provider Name and Address Organization Details Recorded Time 4 Sports Shoulder completed Annette Lin PA-C [address], [place], [address], [facility] 04/25/2024 08:30:58 4 Orthopedic Surgery completed KAYLIA L'HEUREUX [facility] 04/25/2024 09:16:38 Imaging [...] Name and Address Organization Details Recorded Time [id number] Substance with sulfonami de structure and antibacte rial mechanism of action (substanc e) medicatio n Not available Not available Not available 01/21/2024 60040 [id number] SNOMED Jeff Zepeda PA-C [address], [place], [address], [facility] 15:51:38 Medications [...] Updated DateTime 01/21/2024 157.48 cm 43.9 kg/m2 245011.17 g Jeff Zepeda PA-C [address], [place], [address], [place] [facility] 01/21/2024 15:51:14 Date Recorded Body height Body mass index (BMI) Body weight Provider Name and Address Organization Details Last Updated DateTime 04/25/2024 157.48 cm 43.9 kg/m2 706027.17 g DANIE MAYFIELD [facility] 04/25/2024 09:16:47 Social History Question Answer Notes LastModified by Organizat ion Details LastModified Time Tobacco Smoking Status Former Smoker DANIE ATKINSEMMA hylton [facility] 04/25/2024 09:17:44 What Is Your Level [...] SNOMED-CT Code Diagnosis ICD10 Code Diagnosis Note [id number] [facility] Faustin [address] [place] [address] 01/21/2024 15:43:27 02/01/2024 10:42:49 Cervical radiculopathy [id number] M54.12 Degenerati ve joint disease of shoulder region 17638105 M19.594 [id number] [facility] Arshad [address] [place] [address] 04/25/2024 08:55:33 05/13/2024 13:50:08 Osteoarthritis of joint of right shoulder region [id number] 01473 M19.011 Health Concerns Section Related Observation LastModified by Organization Detai ls LastModified Time None Recorded Concern Status LastModified by Organization Details LastModified Time None Recorded Advance Directives Directive None Recorded Payers Encounter Date Sequence Insurance Name Policy Number Policy Rojo Covered Member ID Rojo Member ID Guarantor Name 01/21/2024 1 [employer] ([facility] [id number] Maria Ines Moulton [id number] Maria Ines Kenney 04/25/2024 1 [facility] ([facility] [id number] Xavier Moulton [id number] Maria Ines Moulton Notes Date Note Type [...] the cervical spine. Positive Spurling's maneuver normal lead ios developer strength noted. New x-rays ordered and reviewed [...] benefits of Medrol and associated risk factors. [employer] speech recognition head filter tank tender helper software was used to create portions of this document. An attempt at proofreading has been made to minimize errors. Please call for corrections. Jeff Zepeda PA-C [address] [place] [address], [place], [address], [facility] 01/21/2024 16:39:09 [...] procedure notes for injection details. Speech recognition head filter tank tender helper software was used to create portions of this document. An attempt at proofreading has been made to minimize errors. Please call for corrections. Annette Lin PA-C [address] [facility] [address], [place], [address], [facility] 04/25/2024 12:01:12 OBGyn Episode No OBEpisode recorded.
== END 2025-02-05 09:53 | disposition home or self-care (01) ==
LOC: HO.HMCC 08:45
PROVIDERS: PCP Internal Medicine; Visit Provider Internal Medicine
DX: M79.675 Pain in left toe(s) (principal); M48.062 Spinal stenosis, lumbar region with neurogenic claudication; F11.20 Opioid dependence, uncomplicated; M62.830 Muscle spasm of back

== ENCOUNTER → 2025-02-05 08:45 | Outpatient (BNVA) | payer BC, SELFPAY | PROVIDERS: PCP Internal Medicine; Visit Provider Internal Medicine ==

== ENCOUNTER 2025-03-05 08:33 | Outpatient (AMB) | payer BC, SELFPAY ==
--- NOTE | 2025-03-05 08:38 | A.OFFPC_ITS ---
Intake Visit Reasons: medication Allergies Sulfa (Sulfonamide Antibiotics) [SULFA (SULFONAMIDE ANTIBIOTICS)] Allergy (Intermediate, Verified 03/05/25 08:38) HIVES, unknown-childhood amoxicillin [Augmentin] Allergy (Unknown, Verified 03/05/25 08:38) rash, itching clavulanic acid [Augmentin] Allergy (Unknown, Verified 03/05/25 08:38) rash, itching gabapentin Adverse Reaction (Unknown, Verified 03/05/25 08:38) N/V Fentanyl Patch Adverse Reaction (Unknown, Uncoded 03/05/25 08:38) skin irritation Medication List - Last Reconciled 03/05/25 by Carlyn Reddy MD carisoprodol (Soma) 350 mg PO BEDTIME PRN 30 days lidocaine 5% 1 patch topical DAILY 30 days nystatin (Nystop) 1 appl topical BID 30 days oxycodone 10 mg PO TID PRN 30 days semaglutide (weight loss) 1 mg (0.5 mL) subcut QWEEK 30 days triamcinolone acetonide 0.1% 1 appl topical BID 90 days Tobacco use date assessed: 03/05/25 Fall risk assessment: No Falls in past year Last assessed Fall Risk: 03/05/25 Dental Screening Dental Screen Date: 03/05/25 Did you have a dental visit in the last 12 months?: Yes Did you have a dental problem in the last 6 months where you did not have access to dental care?: No Was dental information given to patient?: Patient has dentist HPI medication HPI Details History - The patient is a 65-year-old female pr esenting with chronic pain. patient has sever lumber spinal stenosis - The patient reports being sore all ove r, particularly in the legs and arms. - This soreness and pain have been persi stent and severe enough to consider a referral to a industrial painter, though this has not happened yet. as patient continue to decline that - The patient is currently managing the pain with medications including Soma and oxycodone, for which she requested refills during this visit. - Weight management is also a concern, w ith the patient successfully reducing weight from 201.8 pounds in December to 197 pounds currently. - The patient is on semaglutide at a dos age of one milligram, which appears to aid in weight loss; she contemplates a dose increase though has decided to maintain the current dose to avoid potential insurance complications. Patient Instructions - Continue taking Soma and oxycodone as prescribed for pain management. - Maintain the current dosage of one mil ligram of semaglutide for weight management since it seems to be effective. - Continue documenting weight changes. - Inform the office when ready to consul t with a industrial painter. Review of Systems - General: No fever no chills - Neurological: No headaches no dizziness - Ear nose throat: No sore throat no hearing difficulty no ear pain - Cardiovascular: No syncope, no chest pain, no palpitations - Gastrointestinal: No nausea vomiting or diarrhea [facility] Medical History Gout Obesity Pain management Exposure to COVID-19 virus Severe acute respiratory syndrome coronavirus 2 (SARS-CoV-2) detected Earache, left Abdominal mass Encounter for general adult medical examination with abnormal findings Breast screening Routine gynecological examination Chronic nasal congestion Eustachian tube disorder Right knee pain Encounter for annual routine gynecological examination Upper respiratory tract infection Otitis media of left ear URI with cough and congestion Upper respiratory tract infection Immunizations incomplete Abnormal TSH Blocked ear Rotator cuff tear arthropathy of right shoulder Spasm of left trapezius muscle Eardrum rupture, bilateral Colon cancer screening Narcotic dependence Eczema Spinal stenosis Surgical History History of surgery History of colonoscopy History of section Family History Father Cancer COPD (chronic obstructive pulmonary disease) Mother Arthritis Maternal Grandfather Diabetes mellitus Maternal Grandmother Emphysema lung Paternal Grandfather No problems noted. Paternal Grandmother No problems noted. Brother No problems noted. Brother No problems noted. Brother No problems noted. Sister No problems noted. Sister No problems noted. Son No problems noted. Daughter No problems noted. 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 How often do you have a drink containing alcohol?: Monthly or less 2. How many drinks containing alcohol do you have on a typical day when you are drinking?: 1 or 2 3. How often do you have six or more drinks on one occasion?: Never Total Score: 1 Score Reviewed/Action Taken: Yes JESSICA-7 AMB Questionnaire JESSICA-7 Date JESSICA - 7 assessed: 12/31/24 Source: Developed by Drs. Jem Quintero, Candi Felix, Jose Guadalupe Espinosa and colleagues, with an educational conchita from [employer]. Physical exam (Primary Care) Tobacco/Smoking Status: Tobacco use Status Tobacco use date assessed 03/05/25 03/05/25 08:40 Patient Tobacco Use Status Former Tobacco user 03/05/25 08:40 e-Cigarette/Vaping Use Never Used 03/05/25 08:40 Thrive Assessment: Date of Thrive Assessment Date Thrive assessed 12/31/24 03/05/25 08:40 Telehealth Telehealth Telehealth Platform: [employer] Location of provider rendering services: practice address Location of patient: address on file Patient Identification confirmed using: Name, : Yes Telehealth method: video Patient verbally consented to treatment: Yes Patient verbally consented to billing insurance company: Yes Patient informed of any privacy concerns related to visit: Yes Minutes spent on Phone/Video with Pt.: 13 Coding Level of Care Code Tele Est Pt Level 3 (77328) Diagnoses Spinal stenosis of lumbar region with neurogenic claudication M48.062 Spinal region: lumbar Neurogenic claudication status: with neurogenic claudication Narcotic dependence F11.20 Morbid obesity due to excess calories E66.01 Lumbar paraspinal muscle spasm M62.830 Assessment & Plan Assessment & Plan (1) Spinal stenosis: Code(s): M48.00 - Spinal stenosis, site unspecified Category: Medical Qualifiers: Spinal region: lumbar Neurogenic claudication status: with neurogenic claudication Qualified Code(s): M48.062 - Spinal stenosis, lumbar region with neurogenic claudication (2) Narcotic dependence: Comment: ON OXYCODONE AND SOMA Code(s): F11.20 - Opioid dependence, uncomplicated Category: Medical (3) Morbid obesity due to excess calories: Code(s): E66.01 - Morbid (severe) obesity due to excess calories Category: Medical (4) Lumbar paraspinal muscle spasm: Code(s): M62.830 - Muscle spasm of back Category: Medical Plan History - The patient is a 65-year-old female presenting with chronic pain. patient has sever lumber spinal stenosis - The patient reports being sore all over, particularly in the legs and arms. - This soreness and pain have been persistent and severe enough to consider a referral to a industrial painter, though this has not happened yet. as patient continue to decline that - The patient is currently managing the pain with medications including Soma and oxycodone, for which she requested refills during this visit. - Weight management is also a concern, with the patient successfully reducing weight from 201.8 pounds in December to 197 pounds currently. - The patient is on semaglutide at a dosage of one milligram, which appears to a id in weight loss; she contemplates a dose increase though has decided to maintain the current dose to avoid potential insurance complications. Patient Instructions - Continue taking Soma and oxycodone as prescribed for pain management. - Maintain the current dosage of one milligram of semaglutide for weight management since it seems to be effective. - Continue documenting weight changes. - Inform the office when ready to consult with a industrial painter. Medications: Refilled oxycodone ok to fill early this month as patient is going on vacation 10 mg PO TID PRN 90 tabs 0RF pain 30 days F11.20 - Opioid dependence, uncomplicated, M17.10 - Unilateral primary osteoarthritis, unspecified knee, M48.00 - Spinal stenosis, site unspecified, R52 - Pain, unspecified semaglutide (weight loss) administer weeks 1 through 4 of therapy 1 mg (0.5 mL) subcut QWEEK 2.5 mL 2RF 30 days carisoprodol (Soma) 350 mg PO BEDTIME PRN 30 tabs 0RF muscle pain 30 days M48.00 - Spinal stenosis, site unspecified
--- OUTSIDE RECORDS SUMMARY | 2025-03-05 08:45 | XMS_ITS | Data Portability ---
Author Organization [facility], [facility] Address [address] [place] [address] Care Team Providers Care Printing Machinist Name Role Phone MAN JIN Primary Care [...] tablets in a dose pack 2023 024 [id number], [address], [place], [phone], 18:18:09 Patient TargetsNo targets recorded. Patient InstructionsNo [...] Address Organization Details Recorded Time No complaints [id number] Active Status : 'I'; Not Available [facility] 4 09:11:26 Osteoarthr itis of joint of right shoulder region 2140278627724 00 Active 2023 Annette Lin PA-C [address], [place], [address] , [facility] 4 08:31:04 Cervical radiculopa thy 59019402 Active 2023 Jeff Zepeda PA-C [address], [place], [address] , [facility] 4 16:13:57 Osteoarthr itis of shoulder region 63774407 Active 2023 Jeff Zepeda PA-C [address], [place], [address] , [facility] 4 16:19:49 Problem Notes None recorded. Procedures Surgical History Date Name Laterality Status Provider Name and Address Organization Details Recorded Time 4 Sports Shoulder completed Annette Lin PA-C [address], [place], [address], [facility] 04/25/2024 08:30:58 4 Orthopedic Surgery completed KAYLIA L'HEUREUX [facility] 04/25/2024 09:16:38 [...] Name and Address Organization Details Recorded Time 794104 Substance with sulfonami de structure and antibacte rial mechanism of action (substanc e) medicatio n Not available Not available Not available 01/21/2024 [id number] SNOMED Jeff Zepeda PA-C [address], [place], [address], [facility] - [facility] 15:51:38 Medications Name Sig Start [...] Updated DateTime 01/21/2024 157.48 cm 43.9 kg/m2 493001.17 g Jeff Zepeda PA-C [address], [place], [address], [place] [facility] [place] [facility] 01/21/2024 15:51:14 Date Recorded Body height Body mass index (BMI) Body weight Provider Name and Address Organization Details Last Updated DateTime 04/25/2024 157.48 cm 43.9 kg/m2 049442.17 g DANIE MAYFIELD [facility] 04/25/2024 09:16:47 Social History Question Answer Notes LastModified by [employer] Details LastModified Time Tobacco Smoking Status Former Smoker DANIE KaliJOSE ALBERTODanielle hylton [facility] 04/25/2024 09:17:44 When Did You Quit Smoking? 1-5yearssinc elastcigaret te Information not available 04/25/2024 Which Of Your Hands Is Dominant? Right Information not available 04/25/2024 Have You Ever Been Counseled For Unhealthy Alcohol Use? No Information not available 04/25/2024 Sex: Unknown Functional Status Question Answer Note LastModified by [employer] Details LastModified Time How many times per week do you consume alcohol? 1-2 times per week Information not available 04/25/2024 Do you use any illicit or recreational drugs? No Information not available 04/25/2024 Do you or have you ever used any other forms of tobacco or nicotine? No Information not available 04/25/2024 What is your level of alcohol consumption? Occasional Information not available 04/25/2024 Mental Status None recorded. Family History Nothing Reported. Medical History Condition Response Arthritis Y Gynecological HistoryNo gynecological history recorded. Obstetrics History GPAL:G 0 P 0 0 0 0 Past Encounters Encounter ID Performer Location Encounter Start Date Encounter Closed Date Diagnosis/Indication Diagnosis SNOMED-CT Code Diagnosis ICD10 Code Diagnosis Note [id number] [facility] [address] [place] [address] 01/21/2024 15:43:27 02/01/2024 10:42:49 Cervical radiculopathy 55918732 M54.12 Osteoarthr itis of shoulder region 53064119 M19.675 [id number] [facility] [address] [address] 04/25/2024 08:55:33 05/13/2024 13:50:08 Osteoarthritis of joint of right shoulder region 9486581771 95377 M19.011 Health Concerns Section Related Observation LastModified by Organization Detai ls LastModified Time None Recorded Concern Status LastModified by Organization Details LastModified Time None Recorded Advance Directives Directive None Recorded Payers Encounter Date Sequence Insurance Name Policy Number Policy Rojo Covered Member ID Rojo Member ID Guarantor Name 01/21/2024 1 [facility] [id number] Maria Ines Moulton [id number] Maria Ines Kenney 04/25/2024 1 [facility] [place] [id number] Xavier Moulton [id number] Maria Ines Moulton Notes Date Note Type [...] the cervical spine. Positive Spurling's maneuver normal punch finisher strength noted. New x-rays ordered and reviewed [...] benefits of Medrol and associated risk factors. theAudience speech recognition vascular ultrasound technologist software was used to create portions of this document. An attempt at proofreading has been made to minimize errors. Please call for corrections. Jeff Zepeda PA-C [address] [place] [address] [address] [facility], [place], [address], [facility] - [place] [facility] 01/21/2024 16:39:09 04/25/2024 text/html I [...] procedure notes for injection details. Speech recognition vascular ultrasound technologist software was used to create portions of this document. An attempt at proofreading has been made to minimize errors. Please call for corrections. Annette Lin PA-C [address] [facility] [address], [place], [address], [facility] - [place] [facility] 04/25/2024 12:01:12 OBGyn Episode No OBEpisode recorded.
== END 2025-03-05 10:21 | disposition home or self-care (01) ==
LOC: HO.HMCC 08:33
PROVIDERS: PCP Internal Medicine; Visit Provider Internal Medicine
DX: M48.062 Spinal stenosis, lumbar region with neurogenic claudication (principal); F11.20 Opioid dependence, uncomplicated; E66.01 Morbid (severe) obesity due to excess calories; M62.830 Muscle spasm of back

== ENCOUNTER → 2025-03-05 08:33 | Outpatient (BNVA) | payer BC, SELFPAY | PROVIDERS: PCP Internal Medicine; Visit Provider Internal Medicine | DX: Z13.89 Encounter for screening for other disorder (principal) ==

== ENCOUNTER 2025-04-08 13:26 | Outpatient (REF) | payer BC, SELFPAY ==
--- NOTE | ~2025-04-08 | XR_ITS ---
EXAMINATION: XR STERNUM CLINICAL INFORMATION: R07.89 - Other chest pain; Osseous bump just above the xiphoid tip. COMPARISON: Chest radiograph 12/31/2024. TECHNIQUE: 2 views of the sternum were obtained. FINDINGS: No fracture, dislocation, or suspicious bone lesion. Outwardly protruding xiphoid process is incidentally noted, likely accounting for the osseous bump . Surgical anchors noted in the left humeral head. XR/XR sternum min 2V IMPRESSION: No abnormal finding of the sternum. Outwardly protruding xiphoid process. Electronically signed by: Nazario Desai MD 04/08/2025 03:07 PM EDT
[2025-04-08 16:23] LABS: MANUAL DIFF FLAG NO
[2025-04-08 16:26] LABS: Basophils Percent Auto 0.6 % (0-2); Eosinophils Absolute Auto 0.2 X10*3/uL (0.0-0.4); Eosinophils Percent Auto 2.9 % (0-4); Hematocrit 38.7 % (37.0-47.0); Hemoglobin 12.4 g/dl (12.0-16.0); Imm Gran Abs Auto 0.01 X10*3/uL (0.00-0.03); Imm Gran Pct Auto 0.2 % (0.0-0.4); Lymphocytes Absolute Auto 0.9 X10*3/uL (1.2-4.9); Lymphocytes Percent Auto 17.1 % (20-40); Mean Corpuscular Hemoglobin 25.2 pg (27.0-33.0); Mean Corpuscular Volume 78.7 fL (80.0-98.0); Mean Platelet Volume 10.1 fL (9.4-12.3); Monocytes Absolute Auto 0.4 X10*3/uL (0.1-1.2); Monocytes Percent Auto 7.5 % (2-11); Neutrophils Absolute Auto 3.7 x10*3/uL (2.0-8.3); Neutrophils Percent Auto 71.7 % (45-73); Platelet Count 196 X10*3/uL (160-400); Red Blood Count 4.92 X10*6/uL (4.20-5.50); Red Cell Distribution Width 15.2 % (11.0-16.0); White Blood Count 5.2 X10*3/uL (4.8-10.8)
[2025-04-08 16:43] LABS: Alanine Aminotransferase 11 U/L (0-31); Albumin Level 4.5 g/dL (3.5-5.0); Alkaline Phosphatase 83 U/L (39-117); Anion Gap 10 (12-20); Aspartate Amino Transferase 17 U/L (5-31); Bilirubin Total 0.3 mg/dL (0.0-1.0); Blood Urea Nitrogen 20 mg/dL (9-16); Calcium 9.9 mg/dL (8.4-10.2); Carbon Dioxide 30 mmol/L (22-29); Chloride 106 mmol/L (96-108); Estimated Glomerular Filt Rate > 60; Glucose Random 67 mg/dL (60-115); Sodium 142 mmol/L (135-145)
[2025-04-10 04:24] LABS: LDL Cholesterol Direct 139 mg/dL (<100)
== END 2025-04-08 13:27 | disposition home or self-care (01) ==
LOC: HO.HMGCX 13:26
PROVIDERS: PCP Internal Medicine; Visit Provider Internal Medicine
DX: Z00.01 Encounter for general adult medical examination with abnormal findings (principal); R07.89 Other chest pain; E66.01 Morbid (severe) obesity due to excess calories; Z68.37 Body mass index [BMI] 37.0-37.9, adult; M48.062 Spinal stenosis, lumbar region with neurogenic claudication; M17.0 Bilateral primary osteoarthritis of knee; L20.82 Flexural eczema; Z91.09 Other allergy status, other than to drugs and biological substances
CPT/HCPCS: 36415; 71120; 80053; 83721; 84443; 85025

== ENCOUNTER 2025-04-08 13:26 | Outpatient (AMB) | payer BC, SELFPAY ==
--- NOTE | 2025-04-08 13:29 | A.OFFPC_ITS ---
Vital Signs 04/08/25 13:30 Height 5 ft 2 in Weight 203 lb BMI 37.1 BP 130/84 Blood Pressure Location Lt brachial Position Sitting Respiration 16 Pulse 97 Pulse Source Pulse Oximeter Temp 98.2 F Temp Source Oral Pulse Oximetry (%) 98 Oxygen Delivery Method Room Air Intake Visit Reasons: PE Allergies Sulfa (Sulfonamide Antibiotics) (SULFA (SULFONAMIDE ANTIBIOTICS)) Allergy (Intermediate, Verified 04/08/25 13:30) HIVES, unknown-childhood amoxicillin (Augmentin) Allergy (Unknown, Verified 04/08/25 13:30) rash, itching clavulanic acid (Augmentin) Allergy (Unknown, Verified 04/08/25 13:30) rash, itching gabapentin Adverse Reaction (Unknown, Verified 04/08/25 13:30) N/V Fentanyl Patch Adverse Reaction (Unknown, Uncoded 04/08/25 13:30) skin irritation Medication List - Last Reconciled 04/08/25 by Carlyn Reddy MD carisoprodol (Soma) 350 mg PO BEDTIME PRN 30 days lidocaine 5% 1 patch topical DAILY 30 days nystatin (Nystop) 1 appl topical BID 30 days oxycodone 10 mg PO TID PRN 30 days semaglutide (weight loss) 1 mg (0.5 mL) subcut QWEEK 30 days triamcinolone acetonide 0.1% 1 appl topical BID 90 days Tobacco use date assessed: 04/08/25 Fall risk assessment: No Falls in past year Last assessed Fall Risk: 04/08/25 Dental Screening Dental Screen Date: 04/08/25 Did you have a dental visit in the last 12 months?: Yes Did you have a dental problem in the last 6 months where you did not have access to dental care?: No Was dental information given to patient?: Patient has dentist HPI PE HPI Details Physical exam appointment - The patient is a 65-year-old female wi th a history of obesity, spinal stenosis, chronic shoulder pain bilateral, osteoarthritis, eczema presenting with a physical examination and management of chronic conditions. - Spinal stenosis and osteoarthritis hav e been ongoing issues, contributing to chronic pain in the arms and legs, particularly at night. - Chronic shoulder pain is attributed to a previous rotator cuff tear, with exercises attempted for relief. - The patient has a protruding sternum, which has been present for a long time without prior imaging. - Preventative care measures include a m ammogram last performed in December of the previous year and a colonoscopy, which the patient is hesitant to repeat. Health Maintenance - Mammogram was last performed in December of the previous year; follow-up was not scheduled due to cancellation. - Colonoscopy was previously performed, but the patient is reluctant to undergo another. - Routine lab work including CBC, electr olytes, kidney function, and lipid profile were normal in September. 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 - Consider scheduling a mammogram , OBGY N visit and colonoscopy as part of preventative care. - Follow up with orthopedic consultation for chronic shoulder pain if symptoms persist. - continue semaglutide injection weekly for weight loss, dose adjusted to 1.7 mg from 1 mg Follow-up 1 month for narcotic pain medication refill, and 1 year physical exam appointment Review of Systems - General: No fever no chills - Neurological: No headaches no dizzin ess - Ear nose throat: No sore throat no hearing difficulty no ear pain - Cardiovascular: No syncope, no chest pain, no palpitations - Gastrointestinal: No nausea vomiting or diarrhea - Endocrine: No polyuria polydipsia no heat intolerance - Genitourinary: No dysuria - Skin: No new complaints Physical Exam General: Cooperative, healthy appearing, comfortable, no acute distress Orientation: Patient oriented x3 Head: Normal to inspection Ears: Within normal limit visually Nose: Normal external nose present Face and sinus: Normal facial exam Eyes: Appearance normal, extraocular movement intact pupils reactive Neck: Normal visual inspection and supple Respiratory: Normal respiratory effort and able to speak in complete sentences. Clear to auscultation, no stridor Cardiovascular: S1 and S2 RRR Breast exam benign GI: Normal to inspection. Soft to palpation and nontender Skin: Turgor normal, no acute findings Neuro: Patient oriented x3, motor sensory intact, balance intact, tandem pass Extremities: Both shoulders with limited range of motion, unable to lift beyond 90 degrees, pain over rotator cuff bilateral PFSH Medical History Encounter for general adult medical examination with abnormal findings Gout Obesity Pain management Exposure to COVID-19 virus Severe acute respiratory syndrome coronavirus 2 (SARS-CoV-2) detected Earache, left Abdominal mass Breast screening Routine gynecological examination Chronic nasal congestion Eustachian tube disorder Right knee pain Encounter for annual routine gynecological examination Upper respiratory tract infection Otitis media of left ear URI with cough and congestion Upper respiratory tract infection Immunizations incomplete Abnormal TSH Blocked ear Rotator cuff tear arthropathy of right shoulder Spasm of left trapezius muscle Eardrum rupture, bilateral Colon cancer screening Narcotic dependence Eczema Spinal stenosis Surgical History History of surgery History of colonoscopy History of section Family History Father Cancer COPD (chronic obstructive pulmonary disease) Mother Arthritis Maternal Grandfather Diabetes mellitus Maternal Grandmother Emphysema lung Paternal Grandfather No problems noted. Paternal Grandmother No problems noted. Brother No problems noted. Brother No problems noted. Brother No problems noted. Sister No problems noted. Sister No problems noted. Son No problems noted. Daughter No problems noted. 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 Sexual orientation: Straight/Heterosexual Gender identity: Female Cognitive needs: No Hearing needs: No Vision needs: Yes Questionnaire Thrive Questionnaire Date Thrive assessed: 10/17/24 I am a: Patient What is your living situation today?: I have a steady place to live Within the past 12 months, did the food you bought not last and you didn't have the money to get more?: Never true Within the past 12 months, did you worry whether your food would run out before you got money to buy more?: Never true Do you have trouble paying for medicines?: No Do you have trouble getting transportation to medical appointments?: No Do you have trouble paying your heating and electricity bill?: No Do you have trouble taking care of your child, family member or friend?: No Do you have trouble with day-to-day activities such as bathing, preparing meals, shopping, managing finances, etc.?: No Are you currently unemployed and looking for a job?: No Are you interested in more education?: No Please select the resources that you would like help with: None Currently or been in a relationship where the following occur: No concerns reported THRIVE Score: 0 JESSICA-7 AMB Questionnaire JESSICA-7 Date JESSICA - 7 assessed: 12/31/24 Source: Developed by Drs. Jem Quintero, Candi Felix, Jose Guadalupe Espinosa and colleagues, with an educational conchita from [employer]. Physical exam (Primary Care) Vital Signs: Last Vital Signs Temp 98.2 F 04/08/25 13:30 Pulse 97 04/08/25 13:30 Resp 16 04/08/25 13:30 BP 130/84 04/08/25 13:30 Pulse Ox 98 04/08/25 13:30 Oxygen Delivery Method Room Air 04/08/25 13:30 BMI result Body Mass Index 37.1 Tobacco/Smoking Status: Tobacco use Status Tobacco use date assessed 04/08/25 04/08/25 13:34 Patient Tobacco Use Status Former Tobacco user 04/08/25 13:34 e-Cigarette/Vaping Use Never Used 04/08/25 13:34 Thrive Assessment: Date of Thrive Assessment Date Thrive assessed 10/17/24 04/08/25 13:34 Currently or been in a relationship where the following occur: No concerns reported Coding Level of Care Code Est Pt Level 3 (66619) Est Pt Prev Care >65y(30274) Diagnoses Encounter for general adult medical examination with abnormal findings Z00.01 Sternum pain R07.89 Morbid obesity due to excess calories E66.01 Spinal stenosis of lumbar region with neurogenic claudication M48.062 Neurogenic claudication status: with neurogenic claudication Spinal region: lumbar Primary osteoarthritis of both knees M17.0 Laterality: bilateral Osteoarthritis type: primary Environmental allergies Z91.09 Flexural eczema L20.82 Eczema type: flexural Assessment & Plan Assessment & Plan (1) Encounter for general adult medical examination with abnormal findings: Code(s): Z00.01 - Encounter for general adult medical examination with abnormal findings Category: Medical (2) Sternum pain: Code(s): R07.89 - Other chest pain Category: Medical (3) Morbid obesity due to excess calories: Code(s): E66.01 - Morbid (severe) obesity due to excess calories Category: Medical (4) Spinal stenosis: Code(s): M48.00 - Spinal stenosis, site unspecified Category: Medical Qualifiers: Neurogenic claudication status: with neurogenic claudication Spinal region: lumbar Qualified Code(s): M48.062 - Spinal stenosis, lumbar region with neurogenic claudication (5) Osteoarthritis, knee: Code(s): M17.10 - Unilateral primary osteoarthritis, unspecified knee Category: Medical Qualifiers: Laterality: bilateral Osteoarthritis type: primary Qualified Code(s): M17.0 - Bilateral primary osteoarthritis of knee (6) Environmental allergies: Code(s): Z91.09 - Other allergy status, other than to drugs and biological substances Category: Medical (7) Eczema: Code(s): L30.9 - Dermatitis, unspecified Category: Medical Qualifiers: Eczema type: flexural Qualified Code(s): L20.82 - Flexural eczema Plan Physical exam appointment - The patient is a 65-year-old female with a history of obesity, spinal stenosis, chronic shoulder pain bilateral, osteoarthritis, eczema presenting with a physical examination and management of chronic conditions. - Spinal stenosis and osteoarthritis have been ongoing issues, contributing to chronic pain in the arms and legs, particularly at night. - Chronic shoulder pain is attributed to a previous rotator cuff tear, with exercises attempted for relief. - The patient has a protruding sternum, which has been present for a long time without prior imaging. - Preventative care measures include a mammogram last performed in December of the previous year and a colonoscopy, which the patient is hesitant to repeat. Health Maintenance - Mammogram was last performed in December of the previous year; follow-up was not scheduled due to cancellation. - Colonoscopy was previously performed, but the patient is reluctant to undergo another. - Routine lab work including CBC, electrolytes, kidney function, and lipid profile were normal in September. 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 - Consider scheduling a mammogram , OBGYN visit and colonoscopy as part of preventative care. - Follow up with orthopedic consultation for chronic shoulder pain if symptoms persist. - continue semaglutide injection weekly for weight loss, dose adjusted to 1.7 mg from 1 mg Follow-up 1 month for narcotic pain medication refill, and 1 year physical exam appointment Orders: Orders TSH reflex Free T4 Today E66.01 - Morbid (severe) obesity due to excess calories, L20.82 - Flexural eczema, M17.0 - Bilateral primary osteoarthritis of knee, M48.062 - Spinal stenosis, lumbar region with neurogenic claudication, Z00.01 - Encounter for general adult medical examination with abnormal findings, Z91.09 - Other allergy status, other than to drugs and biological substances Complete Blood Count Auto Diff Today E66.01 - Morbid (severe) obesity due to excess calories, L20.82 - Flexural eczema, M17.0 - Bilateral primary osteoarthritis of knee, M48.062 - Spinal stenosis, lumbar region with neurogenic claudication, Z00.01 - Encounter for general adult medical examination with abnormal findings, Z91.09 - Other allergy status, other than to drugs and biological substances Comprehensive Met. Panel Today E66.01 - Morbid (severe) obesity due to excess calories, L20.82 - Flexural eczema, M17.0 - Bilateral primary osteoarthritis of knee, M48.062 - Spinal stenosis, lumbar region with neurogenic claudication, Z00.01 - Encounter for general adult medical examination with abnormal findings, Z91.09 - Other allergy status, other than to drugs and biological substances LDL Cholesterol Direct Today E66.01 - Morbid (severe) obesity due to excess calories, L20.82 - Flexural eczema, M17.0 - Bilateral primary osteoarthritis of knee, M48.062 - Spinal stenosis, lumbar region with neurogenic claudication, Z00.01 - Encounter for general adult medical examination with abnormal findings, Z91.09 - Other allergy status, other than to drugs and biological substances XR sternum min 2V Today R07.89 - Other chest pain Medications: Changed From semaglutide (weight loss) administer weeks 1 through 4 of therapy 1 mg (0.5 mL) subcut QWEEK 30 days 2.5 mL 2RF To semaglutide (weight loss) administer weeks 1 through 4 of therapy 1.7 mg (0.75 mL) subcut QWEEK 3.75 mL 2RF 30 days
[2025-04-08 13:30] VITALS: BP 130/84; PULSE 97; RESP 16; TEMP 36.8; O2SAT 98; BMI 37.1
--- OUTSIDE RECORDS SUMMARY | 2025-04-08 15:49 | XMS_ITS | Data Portability ---
Author Organization [facility], [facility] Address [address] [place] [address] Care Team Providers Care Configuration Consultant Name Role Phone MAN JIN Primary Care Provider Assessment No assessment recorded. Plan of Treatment Reminders Order Date Submit Date Provider Last Modified By Organization Details Last Modified Time Details Appointments None recorded. Lab None recorded. Referral None recorded. Procedures None recorded. Surgeries None recorded. Imaging XR, cervical spine, 2 or 3 view - 221 2023 024 rmessenger Not available 4 10:42:49 Medication Orders Medrol (Connor) 4 mg tablets in a dose pack 2023 024 [id number], [address], [place], [id number], 4 18:18:09 Patient TargetsNo targets recorded. Patient InstructionsNo [...] Address Organization Details Recorded Time No complaints 181853471 Active Status : 'I'; Not Available [facility] 4 09:11:26 Osteoarthr itis of joint of right shoulder region 0193751932487 00 Active 2023 Annette Lin PA-C [address], [place], [address] , [facility] 4 08:31:04 Cervical radiculopa thy 28148409 Active 2023 Jeff Zepeda PA-C [address], [place], [address] , [facility] 4 16:13:57 Osteoarthr itis of shoulder region 07285142 Active 2023 Jeff Zepeda PA-C [address], [place], [address] , [facility] 4 16:19:49 Problem Notes None recorded. Procedures Surgical History Date Name Laterality Status Provider Name and Address Organization Details Recorded Time 4 Sports Shoulder completed Annette Lin PA-C [address], [place], [address], [facility] 04/25/2024 08:30:58 4 Orthopedic Surgery completed KAYLIA L'HEUREUX [facility] 04/25/2024 09:16:38 Imaging Results None recorded. Procedure Notes None recorded. Medical Equipment None Reported. Allergies Allergen ID Allergen Name Allergen Category Reaction Reaction Severity Criticality Documentation Date Start Date Code Code System Note Provider Name and Address Organization Details Recorded Time 117584 Substance with sulfonami de structure and antibacte rial mechanism of action (substanc e) medicatio n Not available Not available Not available 01/21/2024 45230 8003 SNOMED Jeff Zepeda PA-C [address], [place], [address], [facility] 4 15:51:38 Medications Name Sig Start Date Stop [...] Updated DateTime 01/21/2024 157.48 cm 43.9 kg/m2 164470.17 g Jeff Zepeda PA-C [address] [place] [address] [address], [place], [address], [facility] 01/21/2024 15:51:14 Date Recorded Body height Body mass index (BMI) Body weight Provider Name and Address Organization Details Last Updated DateTime 04/25/2024 157.48 cm 43.9 kg/m2 984021.17 g DANIE MAYFIELD [facility] 04/25/2024 09:16:47 Social History Question Answer Notes LastModified by Organizat ion Details LastModified Time Tobacco Smoking Status Former Smoker DANIE hylton [place] - [place] [facility] 04/25/2024 09:17:44 When Did You Quit Smoking? 1-5yearssinc elastcigaret te Information not available 04/25/2024 Which Of Your Hands Is Dominant? Right Information not available 04/25/2024 Have You Ever Been Counseled For Unhealthy Alcohol Use? No Information not available 04/25/2024 Sex: Unknown Functional Status Question Answer Note LastModified by Organizat ion Details LastModified Time How many times per [...] SNOMED-CT Code Diagnosis ICD10 Code Diagnosis Note [id number] W[facility] Faustin [address] [place] [address] 01/21/2024 15:43:27 02/01/2024 10:42:49 Cervical radiculopathy 92386999 M54.12 Osteoarthr itis of shoulder region 96931581 M19.477 [id number] [facility] Arshad [address] [place] [address] 04/25/2024 08:55:33 05/13/2024 13:50:08 Osteoarthritis of joint of right shoulder region 0006164857 29659 M19.011 Health Concerns Section Related Observation LastModified by Organization Detai ls LastModified Time None Recorded Concern Status LastModified by Organization Details LastModified Time None Recorded Advance Directives Directive None Recorded Payers Insurance Date Sequence Insurance Name Policy Number Policy Rojo Covered Member ID Rojo Member ID Guarantor Name 04/24/2024 1 [facility] (O) [id number] Maria Ines Moulton [id number] Maria Ines Moulton 05/13/2024 1 [place] [facility] [id number] Xavier Moulton [id number] Maria Ines Moulton Notes Date Note Type [...] forward elevation to 150 degrees, external rotates 45 , internal rotates back pocket. Positive impingement arc with bursal crepitance. AC joint is palpated and moderately tender, rotator cuff strength 4/5 with horizontal elevation and external rotation. Subscapularis and belly press tests normal. Cervical range of motion restricted with irritability in the cervical outflow and tenderness to palpation along the cervical spine. 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 New x-rays ordered and reviewed [...] benefits of Medrol and associated risk factors. [facility] speech recognition olive grower software was used to create portions of this document. An attempt at proofreading has been made to minimize errors. Please call for corrections. Jeff Zepeda PA-C [address], [place], [address], [facility] 01/21/2024 16:39:09 04/25/2024 text/html I am seeing the patient today under the supervision of Dr. Andersen who was available but who did not see the patient. HPI: Patient comes to the office with known history of glenohumeral joint arthritis of the Right shoulder. The patient has done well with [...] range of motion of the shoulder is restricted with moderate pain through mid range manipulations. 4/5 strength testing of the shoulder. Good stability [...] procedure notes for injection details. Speech recognition olive grower software was used to create portions of this document. An attempt at proofreading has been made to minimize errors. Please call for corrections. Annette Lin PA-C [address], [place], [address], [facility] 04/25/2024 12:01:12 OBGyn Episode No OBEpisode recorded.
== END 2025-04-08 14:48 | disposition home or self-care (01) ==
LOC: HO.HMCC 13:27
PROVIDERS: PCP Internal Medicine; Visit Provider Internal Medicine
DX: Z00.01 Encounter for general adult medical examination with abnormal findings (principal); R07.89 Other chest pain; E66.01 Morbid (severe) obesity due to excess calories; Z68.37 Body mass index [BMI] 37.0-37.9, adult; M48.062 Spinal stenosis, lumbar region with neurogenic claudication; M17.0 Bilateral primary osteoarthritis of knee; Z91.09 Other allergy status, other than to drugs and biological substances; L20.82 Flexural eczema

== ENCOUNTER → 2025-04-08 14:15 | Outpatient (BNV) | payer BC, SELFPAY | PROVIDERS: PCP Internal Medicine; Visit Provider Radiology Diagnostic Radiology | DX: M95.4 Acquired deformity of chest and rib (principal) | CPT/HCPCS: 71120 ==

== ENCOUNTER 2025-04-30 08:48 | Outpatient (AMB) | payer BC, SELFPAY ==
--- OUTSIDE RECORDS SUMMARY | 2025-04-30 09:03 | XMS_ITS | Data Portability ---
Author Organization [facility], [facility] Address [address] [place] [address] Care Team Providers Care Executive Candidate Developer Name Role Phone MAN JIN Primary Care Provider [phone] Assessment No assessment recorded. Plan of Treatment [...] tablets in a dose pack 2023 024 [id number], [address], [place], [id number], 4 18:18:09 Patient TargetsNo targets recorded. Patient [...] Address Organization Details Recorded Time No complaints 485949265 Active Status : 'I'; Not Available [facility] 4 09:11:26 Cervical radiculopa thy 43265545 Active 2023 Jeff Zepeda PA-C [address], [place], [address] , [facility] 4 16:13:57 Osteoarthr itis of shoulder region 05047122 Active 2023 Jeff Zepeda PA-C [address], [place], [address] , [facility] 4 16:19:49 Osteoarthr itis of joint of right shoulder region 7166411974939 00 Active 2023 Annette Lin PA-C [address], [place], [address] , [facility] 4 08:31:04 Problem Notes None recorded. Procedures Surgical History Date Name Laterality Status Provider Name and Address Organization Details Recorded Time 4 Sports Shoulder completed WAGNER Arshad [address], [facility] [place], [address], [facility] 04/25/2024 08:30:58 4 Orthopedic Surgery completed KAYLIA L'HEUREUX [facility] 04/25/2024 09:16:38 Imaging Results None recorded. Procedure Notes None recorded. Medical Equipment None Reported. Allergies Allergen ID Allergen Name Allergen Category Reaction Reaction Severity Criticality Documentation Date Start Date Code Code System Note Provider Name and Address Organization Details Recorded Time 445313 Substance with sulfonami de structure and antibacte rial mechanism of action (substanc e) medicatio n Not available Not available Not available 01/21/2024 70510 8003 SNOMED Jeff Zepeda PA-C [address], [place], [address], [facility] 4 15:51:38 Medications Name [...] Updated DateTime 01/21/2024 157.48 cm 43.9 kg/m2 938425.17 g Jeff Zepeda PA-C [address] [place] [address] [address], [place], [address], [facility] 01/21/2024 15:51:14 Date Recorded Body height Body mass index (BMI) Body weight Provider Name and Address Organization Details Last Updated DateTime 04/25/2024 157.48 cm 43.9 kg/m2 808070.17 g DANIE MAYFIELD [facility] 04/25/2024 09:16:47 Social History Question Answer Notes LastModified by Organizat ion Details LastModified Time Tobacco Smoking Status Former Smoker DANIE hylton [place] - [place] [facility] 04/25/2024 09:17:44 [...] SNOMED-CT Code Diagnosis ICD10 Code Diagnosis Note [id number] W[facility] [address] [place] [address] 01/21/2024 15:43:27 02/01/2024 10:42:49 Cervical radiculopathy 88231885 M54.12 Osteoarthr itis of shoulder region 55651311 M19.829 [id number] WAGNER Arshad [address] [place] [address] 04/25/2024 08:55:33 05/13/2024 13:50:08 Osteoarthritis of joint of right shoulder region 5948998580 47818 M19.011 Health Concerns Section Related Observation LastModified by Organization Detai ls LastModified Time None Recorded Concern Status LastModified by Organization Details LastModified Time None Recorded Advance Directives Directive None Recorded Payers Insurance Date Sequence Insurance Name Policy Number Policy Rojo Covered Member ID Rojo Member ID Guarantor Name 04/24/2024 1 [facility] (O) [id number] Maria Ines Moulton [id number] Maria Ines Moulton 05/13/2024 1 [place] [facility] [id number] Xavier Moulton [id number] Maria Ines Moulton Notes Date Note Type [...] the cervical spine. Positive Spurling's maneuver normal irb compliance coordinator strength noted. New x-rays ordered and reviewed [...] benefits of Medrol and associated risk factors. [facility] speech recognition python engineer software was used to create portions of this document. An attempt at proofreading has been made to minimize errors. Please call for corrections. Jeff Zepeda PA-C [address], [place], [address], [facility] 01/21/2024 16:39:09 [...] procedure notes for injection details. Speech recognition python engineer software was used to create portions of this document. An attempt at proofreading has been made to minimize errors. Please call for corrections. Annette Lin PA-C [address], [place], [address], [facility] 04/25/2024 12:01:12 OBGyn Episode No OBEpisode recorded.
--- OUTSIDE RECORDS SUMMARY | 2025-04-30 09:03 | XMS_ITS | Patient Health Record ---
[facility] [place] Address [address] [place] [address] Care Team Providers Care Coal Cager Name Role Phone Barry MORALES, [facility] Provider Rose Osman Unavailable [phone] Allergies No Known Allergies Reason For Referral Diagnosis 1 Ganglion of foot, le ft (M67.472) Referring Provider First Name [facility] Referring Provider Last Name Barry Referred Organization [facility] Referred Provider Rose Child Referred Address [address] [place], [place],[address], Referred Provider Specialty Podiatry Referral Priority Routine Medications Medication SIG (Take, Route, Frequency, Duration) Notes Start Date End Date Status oxyCODONE HCl Active Wegovy Active Soma Active Social History Tobacco Use: Social History Observation Description Date Details (start date - stop date) Former Smoker NA - NA Tobacco use other than smoking: Question Answer Notes Are you an other tobacco user? No Tobacco Control (Standard) Question Answer Notes Tobacco use: Former smoker Additional Findings: Tobacco non-user Current no nsmoker AUDIT-C (Standard) Question Answer Notes Did you have a drink containing alcohol in the p ast year? No Points 0 Interpretation Negative Vital Signs Height 5 ft 2 in in 03/18/2025 Weight 199 lbs 03/18/2025 BMI 36.39 kg/m2 03/18/2025 Procedures Procedure Date Ordered Date Performed Result Body Sit e - Ganglion Cyst Injection/Aspiration 03/18/2025 N/A Encounters Encounter Location Date Provider Diagnosis [facility] [address] [place] [address] 03/18/2025 Rose Child Ganglion of foot, left M67.[address] [facility] [address] 03/05/2025 Rose Child [facility] [address] 03/19/2025 Rose Child [facility] [address] 03/19/2025 Rose Child [facility] [address] 03/25/2025 Rose Child Assessments Encounter Date Diagnosis (ICD Code) Assessment Notes Treatment Notes Treatment Clinical Notes Section Notes 03/18/2025 Ganglion of foot, left (ICD-10 - M67.472) Plan Of Treatment Pending Test Test Name Order Date - Ganglion Cyst Injection/Aspiratio n 03/18/2025 Insurance Providers Payer Name Payer Address Payer Phone Subscriber Number Group Number Insured Name Patient Relationship to Insured Coverage Start Date Coverage End Date [facility] [address] [place] [address] [id number] Maria Ines Moulton Self - patient is the insured Medical (General) History Medical History History ICD Code Back,Hip,and Knee pain covid-19 Osteoporosis Measles Mumps Chicken pox
--- NOTE | 2025-04-30 09:07 | A.OFFPC_ITS ---
Intake Visit Reasons: med refill Allergies Sulfa (Sulfonamide Antibiotics) (SULFA (SULFONAMIDE ANTIBIOTICS)) Allergy (Intermediate, Verified 04/08/25 13:30) HIVES, unknown-childhood amoxicillin (Augmentin) Allergy (Unknown, Verified 04/08/25 13:30) rash, itching clavulanic acid (Augmentin) Allergy (Unknown, Verified 04/08/25 13:30) rash, itching gabapentin Adverse Reaction (Unknown, Verified 04/08/25 13:30) N/V Fentanyl Patch Adverse Reaction (Unknown, Uncoded 04/08/25 13:30) skin irritation Medication List - Last Reconciled 04/30/25 by Carlyn Reddy MD carisoprodol (Soma) 350 mg PO BEDTIME PRN 30 days lidocaine 5% 1 patch topical DAILY 30 days nystatin (Nystop) 1 appl topical BID 30 days oxycodone 10 mg PO TID PRN 30 days semaglutide (weight loss) 1.7 mg (0.75 mL) subcut QWEEK 30 days triamcinolone acetonide 0.1% 1 appl topical BID 90 days Tobacco use date assessed: 04/08/25 Dental Screening Dental Screen Date: 04/08/25 HPI med refill HPI Details History - The patient is a 65-year-old female pr esenting with spinal stenosis and associated pain in both legs. - The leg pain started increasing in sev erity, described as killing sensation, exacerbating when standing up or straightening the spine.. - The patient notes relief when leaning forward or sitting, suggesting position- related pain modulation. - She reports difficulty getting off the couch and persistent soreness in her legs. - The leg pain worsens without medicatio n, and she relies on pain medication to manage symptoms. pain is tolerable if takes medication on time, no bowel or bladder issues Medical History: - Spinal stenosis Medications: - Pain medication oxycodone 10 mg tid Social History: - The patient is responsible for taking care of six children daily, which contributes to potential forgetfulness in medication adherence. - Issues with reaching household items d ue to rotator cuff tears are being managed with supportive strategies at home, including assistance from her spouse. Problem List - Spinal Stenosis - Bilateral Rotator Cuff tendenopathy Patient Instructions - Continue taking your pain medication r egularly and try not to miss doses. med sent Review of Systems - General: No fever no chills - Neurological: No headaches no dizziness - Ear nose throat: No sore throat no hearing difficulty no ear pain - Cardiovascular: No syncope, no chest pain, no palpitations - Gastrointestinal: No nausea vomiting or diarrhea [facility] Medical History Encounter for general adult medical examination with abnormal findings Gout Obesity Pain management Exposure to COVID-19 virus Severe acute respiratory syndrome coronavirus 2 (SARS-CoV-2) detected Earache, left Abdominal mass Breast screening Routine gynecological examination Chronic nasal congestion Eustachian tube disorder Right knee pain Encounter for annual routine gynecological examination Upper respiratory tract infection Otitis media of left ear URI with cough and congestion Upper respiratory tract infection Immunizations incomplete Abnormal TSH Blocked ear Rotator cuff tear arthropathy of right shoulder Spasm of left trapezius muscle Eardrum rupture, bilateral Colon cancer screening Narcotic dependence Eczema Spinal stenosis Surgical History (Reviewed 04/30/25 @ 09: by Carlyn Reddy MD) History of surgery History of colonoscopy History of section Family History (Reviewed 04/30/25 @ 09: by Carlyn Reddy MD) Father Cancer COPD (chronic obstructive pulmonary disease) Mother Arthritis Maternal Grandfather Diabetes mellitus Maternal Grandmother Emphysema lung Paternal Grandfather No problems noted. Paternal Grandmother No problems noted. Brother No problems noted. Brother No problems noted. Brother No problems noted. Sister No problems noted. Sister No problems noted. Son No problems noted. Daughter No problems noted. 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 Sexual orientation: Straight/Heterosexual Gender identity: Female Cognitive needs: No Hearing needs: No Vision needs: Yes Questionnaire Thrive Questionnaire Date Thrive assessed: 10/17/24 I am a: Patient What is your living situation today?: I have a steady place to live Within the past 12 months, did the food you bought not last and you didn't have the money to get more?: Never true Within the past 12 months, did you worry whether your food would run out before you got money to buy more?: Never true Do you have trouble paying for medicines?: No Do you have trouble getting transportation to medical appointments?: No Do you have trouble paying your heating and electricity bill?: No Do you have trouble taking care of your child, family member or friend?: No Do you have trouble with day-to-day activities such as bathing, preparing meals, shopping, managing finances, etc.?: No Are you currently unemployed and looking for a job?: No Are you interested in more education?: No Please select the resources that you would like help with: None Currently or been in a relationship where the following occur: No concerns reported THRIVE Score: 0 JESSICA-7 AMB Questionnaire JESSICA-7 Date JESSICA - 7 assessed: 12/31/24 Source: Developed by Drs. Jem Quintero, Candi Felix, Jose Guadalupe Espinosa and colleagues, with an educational conchita from [employer]. Physical exam (Primary Care) Tobacco/Smoking Status: Tobacco use Status Tobacco use date assessed 04/08/25 04/30/25 09:07 Patient Tobacco Use Status Former Tobacco user 04/30/25 09:07 e-Cigarette/Vaping Use Never Used 04/30/25 09:07 Thrive Assessment: Date of Thrive Assessment Date Thrive assessed 10/17/24 04/30/25 09:07 Currently or been in a relationship where the following occur: No concerns reported Telehealth Telehealth Telehealth Platform: [facility] Location of provider rendering services: practice address Location of patient: address on file Patient Identification confirmed using: Name, : Yes Telehealth method: video Patient verbally consented to treatment: Yes Patient verbally consented to billing insurance company: Yes Patient informed of any privacy concerns related to visit: Yes Minutes spent on Phone/Video with Pt.: 14 Coding Level of Care Code Tele Est Pt Level 3 (62804) Diagnoses Spinal stenosis of lumbar region with neurogenic claudication M48.062 Spinal region: lumbar Neurogenic claudication status: with neurogenic claudication Narcotic dependence F11.20 Lumbar paraspinal muscle spasm M62.830 Assessment & Plan Assessment & Plan (1) Spinal stenosis: Code(s): M48.00 - Spinal stenosis, site unspecified Category: Medical Qualifiers: Spinal region: lumbar Neurogenic claudication status: with neurogenic claudication Qualified Code(s): M48.062 - Spinal stenosis, lumbar region with neurogenic claudication (2) Narcotic dependence: Comment: ON OXYCODONE AND SOMA Code(s): F11.20 - Opioid dependence, uncomplicated Category: Medical (3) Lumbar paraspinal muscle spasm: Code(s): M62.830 - Muscle spasm of back Category: Medical Plan History - The patient is a 65-year-old female presenting with spinal stenosis and associated pain in both legs. - The leg pain started increasing in severity, described as killing sensation, exacerbating when standing up or straightening the spine.. - The patient notes relief when leaning forward or sitting, suggesting position-related pain modulation. - She reports difficulty getting off the couch and persistent soreness in her legs. - The leg pain worsens without medication, and she relies on pain medication to manage symptoms. pain is tolerable if takes medication on time, no bowel or bladder issues Medical History: - Spinal stenosis Medications: - Pain medication oxycodone 10 mg tid Social History: - The patient is responsible for taking care of six children daily, which contributes to potential forgetfulness in medication adherence. - Issues with reaching household items due to rotator cuff tears are being managed with supportive strategies at home, including assistance from her spouse. Problem List - Spinal Stenosis - Bilateral Rotator Cuff tendenopathy Patient Instructions - Continue taking your pain medication regularly and try not to miss doses. med sent Medications: Refilled oxycodone ok to fill early this month as patient is going on vacation 10 mg PO TID PRN 90 tabs 0RF pain 30 days F11.20 - Opioid dependence, uncomplicated, M17.10 - Unilateral primary osteoarthritis, unspecified knee, M48.00 - Spinal stenosis, site unspecified, R52 - Pain, unspecified carisoprodol (Soma) 350 mg PO BEDTIME PRN 30 tabs 0RF muscle pain 30 days M48.00 - Spinal stenosis, site unspecified
== END 2025-04-30 09:13 | disposition home or self-care (01) ==
LOC: HO.HMCC 08:49
PROVIDERS: PCP Internal Medicine; Visit Provider Internal Medicine
DX: M48.062 Spinal stenosis, lumbar region with neurogenic claudication (principal); F11.20 Opioid dependence, uncomplicated; M62.830 Muscle spasm of back

== ENCOUNTER 2025-05-28 08:31 | Outpatient (AMB) | payer BC, SELFPAY ==
--- OUTSIDE RECORDS SUMMARY | 2025-05-28 08:40 | XMS_ITS | Patient Health Record ---
[facility] Nasrin quezada Finley Address [address] [place] [address] Care Team Providers Care Rubber Gasket Inspector Trimmer Name Role Phone Barry [facility]ORALES, [facility] Provider Rose Osman Unavailable [phone] Allergies No Known Allergies Reason For Referral Diagnosis 1 Ganglion of foot, le ft (M67.472) Referring Provider First Name [facility] Referring Provider Last Name Barry Referred Organization [facility] Referred Provider Rose Child Referred Address [address] [place], [place],[address], Referred Provider Specialty Podiatry Referral Priority Routine [...] N/A Encounters Encounter Location Date Provider Diagnosis [facility] [address] [place] [address] 03/18/2025 Rose Child Ganglion of foot, left M67.[address] [facility] [address] 03/05/2025 Rose Child [facility] [address] 03/19/2025 Rose Child [facility] [address] 03/19/2025 Rose Child [facility] [address] 03/25/2025 Rose Child Assessments Encounter Date Diagnosis [...] Insured Coverage Start Date Coverage End Date [facility] [address] [place] [address] [phone] [id number] 2 Maria Ines Moulton Self - patient is the insured Medical (General) History Medical History History ICD Code Back,Hip,and Knee pain covid-19 Osteoporosis Measles Mumps Chicken pox
--- NOTE | 2025-05-28 10:02 | A.OFFPC_ITS ---
Vital Signs 05/28/25 10:05 Height 5 ft 2 in Weight 193 lb BMI 35.3 Intake Visit Reasons: Medicine Allergies Sulfa (Sulfonamide Antibiotics) (SULFA (SULFONAMIDE ANTIBIOTICS)) Allergy (Intermediate, Verified 04/08/25 13:30) HIVES, unknown-childhood amoxicillin (Augmentin) Allergy (Unknown, Verified 04/08/25 13:30) rash, itching clavulanic acid (Augmentin) Allergy (Unknown, Verified 04/08/25 13:30) rash, itching gabapentin Adverse Reaction (Unknown, Verified 04/08/25 13:30) N/V Fentanyl Patch Adverse Reaction (Unknown, Uncoded 04/08/25 13:30) skin irritation Medication List - Last Reconciled 05/28/25 by Carlyn Reddy MD carisoprodol (Soma) 350 mg PO BEDTIME PRN 30 days lidocaine 5% 1 patch topical DAILY 30 days nystatin (Nystop) 1 appl topical BID 30 days oxycodone 10 mg PO TID PRN 30 days semaglutide (weight loss) 1.7 mg (0.75 mL) subcut QWEEK 30 days triamcinolone acetonide 0.1% 1 appl topical BID 90 days Tobacco use date assessed: 04/08/25 Dental Screening Dental Screen Date: 04/08/25 HPI Medicine HPI Details Chief Complaint Monthly visit for medication refill; patient reports weight loss progress. History of Present Illness The patient is a 65-year-old female with Hx of spinal stenosis, presenting for a monthly visit to refill medications and for weight management. Weight Management: - The patient reported a current weight of 193 pounds. - Since the 08 of April, she has experi enced a weight loss of 10 pounds, having initially weighed 203 pounds. - She mentioned fluctuations in her weig ht previously but notes a steady loss with the current plan. - The patient reported no difficulties a ssociated with weight management efforts. Prescription Medication Refill: - The patient is maintaining her regimen of semaglutide and needs a refill. - Her insurance reportedly causes no dif ficulties with the medication refill process. Medical History: - Semaglutide use for weight management. Medications: - Semaglutide 1.7 mg for weight manageme nt. - Oxycodone: 10 mg tid - Soma: 350 mg qhs Problem List - spinal stenosis - Narcotic dependent - Weight Management and Obesity Patient Instructions - Continue with the semaglutide injectio ns as prescribed. - Refills were requested for semaglutide , oxycodone, and Soma. f/u 4 wks Review of Systems - General: No fever no chills - Neurological: No headaches no dizziness - Ear nose throat: No sore throat no hearing difficulty no ear pain - Cardiovascular: No syncope, no chest pain, no palpitations - Gastrointestinal: No nausea vomiting or diarrhea [facility] Medical History Encounter for general adult medical examination with abnormal findings Gout Obesity Pain management Exposure to COVID-19 virus Severe acute respiratory syndrome coronavirus 2 (SARS-CoV-2) detected Earache, left Abdominal mass Breast screening Routine gynecological examination Chronic nasal congestion Eustachian tube disorder Right knee pain Encounter for annual routine gynecological examination Upper respiratory tract infection Otitis media of left ear URI with cough and congestion Upper respiratory tract infection Immunizations incomplete Abnormal TSH Blocked ear Rotator cuff tear arthropathy of right shoulder Spasm of left trapezius muscle Eardrum rupture, bilateral Colon cancer screening Narcotic dependence Eczema Spinal stenosis Surgical History History of surgery History of colonoscopy History of section Family History Father Cancer COPD (chronic obstructive pulmonary disease) Mother Arthritis Maternal Grandfather Diabetes mellitus Maternal Grandmother Emphysema lung Paternal Grandfather No problems noted. Paternal Grandmother No problems noted. Brother No problems noted. Brother No problems noted. Brother No problems noted. Sister No problems noted. Sister No problems noted. Son No problems noted. Daughter No problems noted. 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 Jem Quintero, Candi Felix, Jose Guadalupe Espinosa and colleagues, with an educational conchita from [employer]. Physical exam (Primary Care) BMI result Body Mass Index 35.3 Tobacco/Smoking Status: Tobacco use Status Tobacco use date assessed 04/08/25 05/28/25 10:03 Patient Tobacco Use Status Former Tobacco user 05/28/25 10:03 e-Cigarette/Vaping Use Never Used 05/28/25 10:03 Thrive Assessment: Date of Thrive Assessment Date Thrive assessed 10/17/24 05/28/25 10:03 Telehealth Telehealth Telehealth Platform: [employer] Location of provider rendering services: practice address Location of patient: address on file Patient Identification confirmed using: Name, : Yes Telehealth method: video Patient verbally consented to treatment: Yes Patient verbally consented to billing insurance company: Yes Patient informed of any privacy concerns related to visit: Yes Minutes spent on Phone/Video with Pt.: 13 Coding Level of Care Code Tele Est Pt Level 3 (65524) Diagnoses Spinal stenosis of lumbar region with neurogenic claudication M48.062 Spinal region: lumbar Neurogenic claudication status: with neurogenic claudication Narcotic dependence F11.20 Lumbar paraspinal muscle spasm M62.830 Weight loss due to medication R63.4; T50.905A Morbid obesity due to excess calories E66.01 Assessment & Plan Assessment & Plan (1) Spinal stenosis: Code(s): M48.00 - Spinal stenosis, site unspecified Category: Medical Qualifiers: Spinal region: lumbar Neurogenic claudication status: with neurogenic claudication Qualified Code(s): M48.062 - Spinal stenosis, lumbar region with neurogenic claudication (2) Narcotic dependence: Comment: ON OXYCODONE AND SOMA Code(s): F11.20 - Opioid dependence, uncomplicated Category: Medical (3) Lumbar paraspinal muscle spasm: Code(s): M62.830 - Muscle spasm of back Category: Medical (4) Weight loss due to medication: Code(s): R63.4 - Abnormal weight loss; T50.905A - Adverse effect of unspecified drugs, medicaments and biological substances, initial encounter Category: Medical (5) Morbid obesity due to excess calories: Code(s): E66.01 - Morbid (severe) obesity due to excess calories Category: Medical Plan Chief Complaint Monthly visit for medication refill; patient reports weight loss progress. History of Present Illness The patient is a 65-year-old female with Hx of spinal stenosis, presenting for a monthly visit to refill medications and for weight management. Weight Management: - The patient reported a current weight of 193 pounds. - Since the 08 of April, she has experienced a weight loss of 10 pounds, having initially weighed 203 pounds. - She mentioned fluctuations in her weight previously but notes a steady loss with the current plan. - The patient reported no difficulties associated with weight management efforts. Prescription Medication Refill: - The patient is maintaining her regimen of semaglutide and needs a refill. - Her insurance reportedly causes no difficulties with the medication refill process. Medical History: - Semaglutide use for weight management. Medications: - Semaglutide 1.7 mg for weight management. - Oxycodone: 10 mg tid - Soma: 350 mg qhs Problem List - spinal stenosis - Narcotic dependent - Weight Management and Obesity Patient Instructions - Continue with the semaglutide injections as prescribed. - Refills were requested for semaglutide, oxycodone, and Soma. f/u 4 wks Medications: Refilled semaglutide (weight loss) administer weeks 1 through 4 of therapy 1.7 mg (0.75 mL) subcut QWEEK 3.75 mL 2RF 30 days oxycodone ok to fill early this month as patient is going on vacation 10 mg PO TID PRN 90 tabs 0RF pain 30 days F11.20 - Opioid dependence, uncomplicated, M17.10 - Unilateral primary osteoarthritis, unspecified knee, M48.00 - Spinal stenosis, site unspecified, R52 - Pain, unspecified carisoprodol (Soma) 350 mg PO BEDTIME PRN 30 tabs 0RF muscle pain 30 days M48.00 - Spinal stenosis, site unspecified
[2025-05-28 10:05] VITALS: BMI 35.3
== END 2025-05-28 10:13 | disposition home or self-care (01) ==
LOC: HO.HMCC 08:31
PROVIDERS: PCP Internal Medicine; Visit Provider Internal Medicine
DX: M48.062 Spinal stenosis, lumbar region with neurogenic claudication (principal); F11.20 Opioid dependence, uncomplicated; E66.01 Morbid (severe) obesity due to excess calories; Z68.35 Body mass index [BMI] 35.0-35.9, adult; M62.830 Muscle spasm of back; R63.4 Abnormal weight loss; T50.905A Adverse effect of unspecified drugs, medicaments and biological substances, initial encounter

== ENCOUNTER 2025-07-03 09:03 | Outpatient (AMB) | payer BC, SELFPAY ==
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
[2025-07-03 09:07] VITALS: BP 128/80; PULSE 83; O2SAT 97; BMI 34.7
== END 2025-07-03 09:38 | disposition home or self-care (01) ==
LOC: HO.HMCC 09:04
PROVIDERS: PCP Internal Medicine; Visit Provider Internal Medicine
DX: M48.062 Spinal stenosis, lumbar region with neurogenic claudication (principal); F11.20 Opioid dependence, uncomplicated; Z91.09 Other allergy status, other than to drugs and biological substances; M67.911 Unspecified disorder of synovium and tendon, right shoulder; E66.811 Obesity, class 1; E66.09 Other obesity due to excess calories; Z68.34 Body mass index [BMI] 34.0-34.9, adult; K76.0 Fatty (change of) liver, not elsewhere classified; L20.82 Flexural eczema

== ENCOUNTER → 2025-07-03 09:03 | Outpatient (BNVA) | payer BC, SELFPAY | PROVIDERS: PCP Internal Medicine; Visit Provider Internal Medicine | DX: M48.062 Spinal stenosis, lumbar region with neurogenic claudication (principal); F11.20 Opioid dependence, uncomplicated; M67.911 Unspecified disorder of synovium and tendon, right shoulder; K76.0 Fatty (change of) liver, not elsewhere classified; L20.82 Flexural eczema; E66.811 Obesity, class 1; M79.602 Pain in left arm; Z91.09 Other allergy status, other than to drugs and biological substances; Z68.34 Body mass index [BMI] 34.0-34.9, adult | CPT/HCPCS: 96127 ==

== ENCOUNTER 2025-09-25 14:12 | Outpatient (AMB) | payer BC, SELFPAY ==
--- NOTE | 2025-09-25 14:04 | A.OFFPC_ITS ---
Intake Visit Reasons: med management Seed Laboratory Technician Required: No Accompanied by: Self / Same As Patient Allergies Sulfa (Sulfonamide Antibiotics) (SULFA (SULFONAMIDE ANTIBIOTICS)) Allergy (Intermediate, Verified 09/25/25 14:13) HIVES, unknown-childhood amoxicillin (Augmentin) Allergy (Unknown, Verified 09/25/25 14:13) rash, itching clavulanic acid (Augmentin) Allergy (Unknown, Verified 09/25/25 14:13) rash, itching gabapentin Adverse Reaction (Unknown, Verified 09/25/25 14:13) N/V Fentanyl Patch Adverse Reaction (Unknown, Uncoded 04/08/25 13:30) skin irritation Medication List - Last Reconciled 09/25/25 by Carlyn Reddy MD carisoprodol (Soma) 350 mg PO BEDTIME PRN 30 days lidocaine 5% 1 patch topical DAILY 30 days nystatin (Nystop) 1 appl topical BID 30 days oxycodone 10 mg PO TID PRN 30 days semaglutide (weight loss) 2.4 mg (0.75 mL) subcut QWEEK 30 days triamcinolone acetonide 0.1% 1 appl topical BID 90 days Tobacco use date assessed: 09/25/25 Fall risk assessment: No Falls in past year Last assessed Fall Risk: 09/25/25 Dental Screening Dental Screen Date: 09/25/25 Did you have a dental visit in the last 12 months?: Yes Did you have a dental problem in the last 6 months where you did not have access to dental care?: No HPI HPI Comments History of Present Illness Details History of Present Illness The patient is a 65 year old female presenting for a televisit for medication refills and weight management follow-up. Overweight: - The patient is being treated for weigh t management, with visits scheduled every three months. - Her current weight is 191.6 pounds, wh ich is a slight increase from 190 pounds in June. - She reports that her weight has been f luctuating and she has not been able to get below 190 pounds despite trying. - She is taking Wegovy 2.4 mg for weight loss and has been able to maintain her weight. Chronic Pain: - The patient has a history of spinal st enosis and muscle spasms in the back. - She takes oxycodone and Soma, and repo rts they are helping without side effects. Cutaneous candidiasis: - The patient requested a powder for a r belkis under her breasts. Medical History: - Spinal stenosis - Muscle spasms in the back Medications: - Oxycodone for chronic pain - Soma (carisoprodol) for muscle spasms - Wegovy 2.4 mg for weight loss Social History: - Weight Management: The patient is acti vely trying to manage her weight, currently weighing 191.6 pounds. Diagnostic Results: - Weight: 191.6 pounds [facility] Medical History Encounter for general adult medical examination with abnormal findings Gout Obesity Pain management Exposure to COVID-19 virus Severe acute respiratory syndrome coronavirus 2 (SARS-CoV-2) detected Earache, left Abdominal mass Breast screening Routine gynecological examination Chronic nasal congestion Eustachian tube disorder Right knee pain Encounter for annual routine gynecological examination Upper respiratory tract infection Otitis media of left ear URI with cough and congestion Upper respiratory tract infection Immunizations incomplete Abnormal TSH Blocked ear Rotator cuff tear arthropathy of right shoulder Spasm of left trapezius muscle Eardrum rupture, bilateral Colon cancer screening Narcotic dependence Eczema Spinal stenosis Surgical History History of surgery History of colonoscopy History of section Family History Father Cancer COPD (chronic obstructive pulmonary disease) Mother Arthritis Maternal Grandfather Diabetes mellitus Maternal Grandmother Emphysema lung Paternal Grandfather No problems noted. Paternal Grandmother No problems noted. Brother No problems noted. Brother No problems noted. Brother No problems noted. Sister No problems noted. Sister No problems noted. Son No problems noted. Daughter No problems noted. 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 Sexual orientation: Straight/Heterosexual Gender identity: Female Cognitive needs: No Hearing needs: No Vision needs: Yes Questionnaire Thrive Questionnaire Date Thrive assessed: 10/17/24 I am a: Patient What is your living situation today?: I have a steady place to live Within the past 12 months, did the food you bought not last and you didn't have the money to get more?: Never true Within the past 12 months, did you worry whether your food would run out before you got money to buy more?: Never true Do you have trouble paying for medicines?: No Do you have trouble getting transportation to medical appointments?: No Do you have trouble paying your heating and electricity bill?: No Do you have trouble taking care of your child, family member or friend?: No Do you have trouble with day-to-day activities such as bathing, preparing meals, shopping, managing finances, etc.?: No Are you currently unemployed and looking for a job?: No Are you interested in more education?: No Please select the resources that you would like help with: None Currently or been in a relationship where the following occur: No concerns reported THRIVE Score: 0 JESSICA-7 AMB Questionnaire JESSICA-7 Date JESSICA - 7 assessed: 12/31/24 Source: Developed by Drs. Jem Quintero, Candi Felix, Jose Guadalupe Espinosa and colleagues, with an educational conchita from [employer]. Review of Systems Narrative Review of Systems - General: No fever no chills - Neurological: No headaches no dizziness - Ear nose throat: No sore throat no hearing difficulty no ear pain - Cardiovascular: No syncope, no chest pain, no palpitations - Gastrointestinal: No nausea vomiting or diarrhea - Endocrine: No polyuria polydipsia no heat intolerance - Genitourinary: No dysuria , no blood in urine Physical exam (Primary Care) Tobacco/Smoking Status: Tobacco use Status Tobacco use date assessed 04/08/25 09/25/25 14:05 Patient Tobacco Use Status Former Tobacco user 09/25/25 14:05 e-Cigarette/Vaping Use Never Used 09/25/25 14:05 Thrive Assessment: Date of Thrive Assessment Date Thrive assessed 10/17/24 09/25/25 14:05 Currently or been in a relationship where the following occur: No concerns reported Narrative Telehealth Telehealth Telehealth Platform: Telephone Location of provider rendering services: practice address Location of patient: address on file Patient Identification confirmed using: Name, : Yes Telehealth method: video Patient verbally consented to treatment: Yes Patient verbally consented to billing insurance company: Yes Patient informed of any privacy concerns related to visit: Yes Minutes spent on Phone/Video with Pt.: 14 Coding Level of Care Code Tele Est Pt Level 3 (59191) Diagnoses Spinal stenosis of lumbar region with neurogenic claudication M48.062 Neurogenic claudication status: with neurogenic claudication Spinal region: lumbar Narcotic dependence F11.20 Environmental allergies Z91.09 Class 1 obesity due to excess calories without serious comorbidity with body mass index (BMI) of 34.0 to 34.9 in adult E66.811; E66.09; Z68.34 Body mass index: BMI 34.0-34.9 Obesity classification: adult class 1 (BMI 30 - 34.9) Serious obesity comorbidity presence: without serious comorbidity Tinea corporis B35.4 Assessment & Plan Assessment & Plan (1) Spinal stenosis: Code(s): M48.00 - Spinal stenosis, site unspecified Category: Medical Qualifiers: Neurogenic claudication status: with neurogenic claudication Spinal region: lumbar Qualified Code(s): M48.062 - Spinal stenosis, lumbar region with neurogenic claudication (2) Narcotic dependence: Comment: ON OXYCODONE AND SOMA Code(s): F11.20 - Opioid dependence, uncomplicated Category: Medical (3) Environmental allergies: Code(s): Z91.09 - Other allergy status, other than to drugs and biological substances Category: Medical (4) Obesity due to excess calories: Code(s): E66.09 - Other obesity due to excess calories Category: Medical Qualifiers: Body mass index: BMI 34.0-34.9 Obesity classification: adult class 1 (BMI 30 - 34.9) Serious obesity comorbidity presence: without serious comorbidity Qualified Code(s): E66.811 - Obesity, class 1; E66.09 - Other obesity due to excess calories; Z68.34 - Body mass index [BMI] 34.0-34.9, adult (5) Tinea corporis: Code(s): B35.4 - Tinea corporis Category: Medical Plan Problem List - Obesity - Chronic pain - Spinal stenosis - Muscle spasm of back - Cutaneous candidiasis Plan - Continue Wegovy 2.4 mg for weight management, as this is the highest dose and she is maintaining her weight. - Send prescription refills for oxycodone and Soma. - Send prescription for powder for intertrigo under the breasts. - The patient will call the office to schedule her next appointment. in 4 wks Medications: Refilled carisoprodol (Soma) 350 mg PO BEDTIME PRN 30 tabs 0RF muscle pain 30 days M48.00 - Spinal stenosis, site unspecified oxycodone ok to fill early this month as patient is going on vacation 10 mg PO TID PRN 90 tabs 0RF pain 30 days F11.20 - Opioid dependence, uncomplicated, M17.10 - Unilateral primary osteoarthritis, unspecified knee, M48.00 - Spinal stenosis, site unspecified, R52 - Pain, unspecified nystatin (Nystop) 1 appl topical BID 60 grams 2RF 30 days semaglutide (weight loss) administer weeks 1 through 4 of therapy 2.4 mg (0.75 mL) subcut QWEEK 3.75 mL 2RF 30 days
--- OUTSIDE RECORDS SUMMARY | 2025-09-25 19:30 | XMS_ITS | Patient Health Record ---
[facility] Nasrin quezada [place] Address [address] [place] [address] Care Team Providers Care Instructional Aide Name Role Phone Barry MORALES, [facility] Primary [facility] Provider Rose Osman Unavailable [phone] Allergies No Known Allergies Reason For Referral Diagnosis 1 Ganglion of foot, le ft (M67.472) Referring Provider First Name [facility] Referring Provider Last Name Barry Referred Organization [facility] Referred Provider Rose Child Referred Address [address] [place], [place],[address], Referred Provider Specialty Podiatry Referral Priority Routine [...] N/A Encounters Encounter Location Date Provider Diagnosis [facility] [address] [place] [address] 03/18/2025 Rose Child Ganglion of foot, left M67.472 [facility] [address] 03/05/2025 Rose Child [facility] [address] 03/19/2025 Rose Child [facility] [address] 03/19/2025 Rose Child [facility] [address] 03/25/2025 Rose Child Assessments Encounter Date Diagnosis [...] Insured Coverage Start Date Coverage End Date [facility] [address] [place] [address] [id number] Maria Ines Moulton Self - patient is the insured Medical (General) History Medical History History ICD Code Back,Hip,and Knee pain covid-19 Osteoporosis Measles Mumps Chicken pox
--- OUTSIDE RECORDS SUMMARY | 2025-09-25 19:30 | XMS_ITS | Data Portability ---
Author Organization [facility], [facility] Address [address] [place] [address] Care Team Providers Care Rubber Goods Finisher Name Role Phone MAN JIN Primary Care Provider [phone] Assessment No assessment recorded. Plan of Treatment [...] tablets in a dose pack 2023 024 [id number], [address], [place], [phone], 4 18:18:09 Patient TargetsNo targets recorded. Patient [...] Address Organization Details Recorded Time No complaints [id number] Active Status : 'I'; Not Available [facility] 4 09:11:26 Cervical radiculopa thy 21319602 Active 2023 Jeff Zepeda PA-C [address], [place], [address] , [facility] 4 16:13:57 Osteoarthr itis of shoulder region 09342700 Active 2023 Jeff Zepeda PA-C [address], [place], [address] , [facility] 4 16:19:49 Osteoarthr itis of joint of right shoulder region 0276560055903 00 Active 2023 Annette Lin PA-C [address], [place], [address] , [facility] 4 08:31:04 Problem Notes None recorded. Procedures Surgical History Date Name Laterality Status Provider Name and Address Organization Details Recorded Time 4 Sports Shoulder completed WAGNER [address]sh[address], [facility] [place], [address], [facility] 04/25/2024 08:30:58 4 Orthopedic Surgery completed KAYLIA L'HEUREUX [facility] 04/25/2024 09:16:38 Imaging Results None recorded. Procedure Notes None recorded. Medical Equipment None Reported. Allergies Allergen ID Allergen Name Allergen Category Reaction Reaction Severity Criticality Documentation Date Start Date Code Code System Note Provider Name and Address Organization Details Recorded Time 988774 Substance with sulfonami de structure and antibacte rial mechanism of action (substanc e) medicatio n Not available Not available Not available 01/21/2024 [id number] SNOMED Jeff Zepeda PA-C [address], [place], [address], [facility] 4 15:51:38 Medications Name [...] Updated DateTime 01/21/2024 157.48 cm 43.9 kg/m2 204448.17 g Jeff Zepeda PA-C [address] [place] [address] [address], [place], [address], [facility] 01/21/2024 15:51:14 Date Recorded Body height Body mass index (BMI) Body weight Provider Name and Address Organization Details Last Updated DateTime 04/25/2024 157.48 cm 43.9 kg/m2 504450.17 g DANIE MAYFIELD [facility] 04/25/2024 09:16:47 Social History Question Answer Notes LastModified by Organizat ion Details LastModified Time Tobacco Smoking Status Former Smoker DANIE hylton [place] [facility] 04/25/2024 09:17:44 When Did You Quit [...] Diagnosis SNOMED-CT Code Diagnosis ICD10 Code Diagnosis IMO Codes Diagnosis Note [id number] WAGNER Faustin [address] [place] [address] 01/21/2024 15:43:27 02/01/2024 10:42:49 Cervical radiculopathy 95587689 M54.12 Osteoarthr itis of shoulder region 79870268 M19.551 [id number] WAGNER Arshad [address] [place] [address] 04/25/2024 08:55:33 05/13/2024 13:50:08 Osteoarthritis of joint of right shoulder region [id number] 61964 M19.011 Health Concerns Section Related Observation LastModified by Organization Detai ls LastModified Time None Recorded Concern Status LastModified by Organization Details LastModified Time None Recorded Advance Directives Directive None Recorded Payers Insurance Date Sequence Insurance Name Policy Number Policy Rojo Covered Member ID Rojo Member ID Guarantor Name 04/24/2024 1 [facility] (O) [id number] Maria Ines Moulton [id number] Maria Ines Moulton 05/13/2024 1 [place] [facility] [id number] Xavier Moulton [id number] Maria Ines Moulton Notes Date Note Type [...] the cervical spine. Positive Spurling's maneuver normal vessel ordinary seaman strength noted. New x-rays ordered and reviewed [...] benefits of Medrol and associated risk factors. [facility] speech recognition certified medical coder software was used to create portions of this document. An attempt at proofreading has been made to minimize errors. Please call for corrections. Jeff Zepeda PA-C [address], [place], [address], [facility] 01/21/2024 16:39:09 04/25/2024 text/html I am [...] procedure notes for injection details. Speech recognition certified medical coder software was used to create portions of this document. An attempt at proofreading has been made to minimize errors. Please call for corrections. Annette Lin PA-C [address], [place], [address], [facility] 04/25/2024 12:01:12 OBGyn Episode No OBEpisode recorded.
== END 2025-09-25 14:28 | disposition home or self-care (01) ==
LOC: HO.HMCC 14:12
PROVIDERS: PCP Internal Medicine; Visit Provider Internal Medicine
DX: M48.062 Spinal stenosis, lumbar region with neurogenic claudication (principal); F11.20 Opioid dependence, uncomplicated; Z91.09 Other allergy status, other than to drugs and biological substances; E66.811 Obesity, class 1; E66.09 Other obesity due to excess calories; Z68.34 Body mass index [BMI] 34.0-34.9, adult; B35.4 Tinea corporis